=== PATIENT | male | born 1975 | race Caucasian/White ===

== ENCOUNTER 2023-05-08 21:38 | Inpatient (IN) | payer MEDICARE, MEDICAID ==
[~2023-05-08] VITALS: Ht 185.4 cm; Wt 73.5 kg
[2023-05-09 00:20] VITALS: BP 105/75; PULSE 94; RESP 18; TEMP 97.4
[2023-05-09] MEDS ORDERED: ACETAMINOPHEN 325 MG TABLET PO PRN (00:30)
[2023-05-09] MEDS ORDERED: MAGNESIUM HYDROXIDE SUSPENSION 30 ML UDCUP PO PRN (00:30)
[2023-05-09] MEDS ORDERED: DEXTROSE 50%-WATER 25 GM/50 ML SYRINGE IVP PRN (06:45)
[2023-05-09] MEDS: INSULIN LISPRO 100 UNITS/ML SQ PRN ×3 (07:02→20:47)
[2023-05-09 07:17] LABS: GLUCOMETER DEV NAME(LOC) 3EX.2; GLUCOSE,POINT OF CARE 167 MG/DL (70-110)
[2023-05-09 08:30] VITALS: RESP 18; TEMP 97.9
[2023-05-09] MEDS ORDERED: NICOTINE 21 MG/24 HOUR PATCH TD SCH (09:00)
[2023-05-09] MEDS: PERPHENAZINE 8 MG TABLET PO SCH ×2 (11:16→16:57)
[2023-05-09 11:37] LABS: GLUCOMETER DEV NAME(LOC) 3EX.2; GLUCOSE,POINT OF CARE 115 MG/DL (70-110)
[2023-05-09] MEDS: NICOTINE POLACRILEX 4 MG LOZENGE PO PRN ×2 (15:48→19:52)
[2023-05-09 16:27] LABS: GLUCOMETER DEV NAME(LOC) 3EX.2; GLUCOSE,POINT OF CARE 205 MG/DL (70-110)
[2023-05-09 19:01] LABS: APPEARANCE,URINE CLEAR (CLEAR); BILIRUBIN,URINE NEGATIVE (NEGATIVE); COLOR,URINE LIGHT YELLOW (YELLOW); GLUCOSE, URINE (UA) NEGATIVE (NEGATIVE); KETONES,URINE NEGATIVE (NEGATIVE); LEUKOCYTE ESTERASE ,URINE NEGATIVE (NEGATIVE); NITRATE,URINE NEGATIVE (NEGATIVE); OCCULT BLOOD,URINE NEGATIVE (NEGATIVE); PH,URINE 6.5 (5.0-8.0); PH,URINE DRUG SCREEN 6.5 (5.0-8.0); PROTEIN,URINE NEGATIVE (NEGATIVE); SPECIFIC GRAVITIY, URINE 1.015 (1.003-1.030); UROBILINOGEN,URINE <=1.0 mg/dL (<=1.0)
[2023-05-09 19:08] LABS: ALCOHOL, URINE DRUG SCREEN NEGATIVE (NEGATIVE); AMPHET/METH SCREEN,URINE NEGATIVE (NEGATIVE); BARBITURATE SCREEN, URINE NEGATIVE (NEGATIVE); BENZODIAZEPINES SCREEN,URINE NEGATIVE (NEGATIVE); CANNABINOID SCREEN,URINE NEGATIVE (NEGATIVE); COCAINE SCREEN,URINE NEGATIVE (NEGATIVE); METHADONE SCREEN, URINE NEGATIVE (NEGATIVE); OPIATE SCREEN,URINE NEGATIVE (NEGATIVE); PHENCYCLIDINE SCREEN,URINE NEGATIVE (NEGATIVE)
[2023-05-09 20:12] VITALS: RESP 18
[2023-05-09 20:28] LABS: GLUCOMETER DEV NAME(LOC) 3EX.2; GLUCOSE,POINT OF CARE 233 MG/DL (70-110)
[2023-05-09] MEDS: TraZODone HCL 100 MG TABLET PO SCH (20:34)
[2023-05-09] MEDS: OLANZapine 10 MG TABLET PO SCH (20:34)
[2023-05-09] MEDS: QUEtiapine FUMARATE 200 MG TABLET PO SCH (20:35)
[2023-05-09] MEDS: MELATONIN 5 MG TABLET PO SCH (20:38)
[2023-05-10] MEDS: NICOTINE POLACRILEX 4 MG LOZENGE PO PRN ×4 (09:14→21:29)
[2023-05-10] MEDS: OMEGA-3/DHA/EPA/FISH OIL 1,000 MG CAPSULE PO SCH (09:15)
[2023-05-10] MEDS: PERPHENAZINE 8 MG TABLET PO SCH ×2 (09:15→17:17)
[2023-05-10 09:25] VITALS: BP 95/64; PULSE 102; RESP 18; TEMP 97.2
[2023-05-10 12:08] LABS: GLUCOMETER DEV NAME(LOC) 3EX.2; GLUCOSE,POINT OF CARE 348 MG/DL (70-110)
[2023-05-10] MEDS: INSULIN LISPRO 100 UNITS/ML SQ PRN ×3 (12:17→21:15)
[2023-05-10] MEDS: LORazepam 2 MG TABLET PO PRN ×3 (13:20→21:31)
[2023-05-10 17:08] LABS: GLUCOMETER DEV NAME(LOC) 3EX.2; GLUCOSE,POINT OF CARE 166 MG/DL (70-110)
[2023-05-10] MEDS: HALOPERIDOL 5 MG TABLET PO PRN (17:25)
[2023-05-10 20:24] VITALS: BP 102/67; PULSE 93; RESP 18; TEMP 97.6
[2023-05-10 20:41] LABS: GLUCOMETER DEV NAME(LOC) 3EX.2; GLUCOSE,POINT OF CARE 261 MG/DL (70-110)
[2023-05-10] MEDS: OLANZapine 10 MG TABLET PO SCH (21:27)
[2023-05-10] MEDS: MELATONIN 5 MG TABLET PO SCH (21:27)
[2023-05-10] MEDS: QUEtiapine FUMARATE 200 MG TABLET PO SCH (21:27)
[2023-05-10] MEDS: TraZODone HCL 100 MG TABLET PO SCH (21:27)
[2023-05-11 06:07] LABS: GLUCOMETER DEV NAME(LOC) 3EX.2; GLUCOSE,POINT OF CARE 211 MG/DL (70-110)
[2023-05-11] MEDS: INSULIN LISPRO 100 UNITS/ML SQ PRN ×4 (06:35→21:11)
[2023-05-11 07:54] LABS: BASOPHILS % (AUTO) 0.7 % (0.0-2.0); EOSINOPHILS % (AUTO) 2.8 % (1.0-6.0); HEMATOCRIT 37.1 % (41-53); HEMOGLOBIN 12.2 g/dL (13.5-17.5); LYMPHOCYTES # (AUTO) 1.5 K/uL (1.0-4.8); MEAN CORPUSCULAR HEMOGLOBIN 28.7 pg (26.0-34.0); MEAN CORPUSCULAR HGB CONC 32.8 G/dL (31.0-37.0); MEAN CORPUSCULAR VOLUME 88 fL (80-100); MONOCYTES # (AUTO) 0.8 K/uL (0.1-1.0); MONOCYTES % (AUTO) 7.7 % (2.0-9.0); NEUTROPHILS # (AUTO) 7.6 K/uL (1.8-7.7); NEUTROPHILS % (AUTO) 73.8 % (40.0-70.0); PLATELET COUNT (AUTO) 317 K/uL (150-450); RED BLOOD CELL COUNT(AUTO) 4.24 MIL/uL (4.50-5.90); RED CELL DISTRIBUTION WIDTH 14.6 % (11.5-14.5); WHITE BLOOD COUNT (AUTO) 10.3 K/uL (4.5-11.0)
[2023-05-11 08:02] VITALS: RESP 18
[2023-05-11 08:02] LABS: HEMOGLOBIN A1C 9.2 % (3.8-5.6)
[2023-05-11 08:05] LABS: ALCOHOL, BLOOD (SERUM) < 3 mg/dL (0-10)
[2023-05-11 08:13] LABS: ALANINE AMINOTRANSFERASE 25 U/L (12-78); ALBUMIN 2.7 g/dL (3.4-5.0); ALKALINE PHOSPHATASE 84 U/L (46-116); ANION GAP 10 mmol/L (8-16); ASPARTATE AMINOTRANSFERASE 15 U/L (15-37); BILIRUBIN,TOTAL 0.4 mg/dL (0.1-1.0); CALCIUM, TOTAL 8.4 mg/dL (8.8-10.5); CARBON DIOXIDE 27 mmol/L (22-29); CHLORIDE 103 mmol/L (98-107); CHOL/HDL RATIO 3.4 (4.2-7.3); CHOLESTEROL 136 mg/dL (131-200); CREATININE 0.71 mg/dL (0.60-1.30); FREE T4 (FREE THYROXINE) 0.91 ng/dL (0.76-1.46); GLOMERULAR FILTR. RATE CALC > 60 mL/min (>60); GLUCOSE,RANDOM 120 mg/dL (70-110); HDL CHOLESTEROL 40 mg/dL (40-60); LDL CHOL (CALC.) 83 mg/dL (0-130); POTASSIUM 3.8 mmol/L (3.5-5.1); SODIUM SERUM 140 mmol/L (136-145); THYROID STIMULATING HORMONE 2.41 uIU/mL (0.36-3.74); TOTAL PROTEIN, SERUM 6.5 g/dL (6.4-8.2); TRIGLYCERIDES 65 mg/dL (15-150); UREA NITROGEN, BLOOD 15 mg/dL (7-18)
[2023-05-11] MEDS: OMEGA-3/DHA/EPA/FISH OIL 1,000 MG CAPSULE PO SCH (08:14)
[2023-05-11] MEDS: LORazepam 2 MG TABLET PO PRN ×2 (08:15→16:49)
[2023-05-11] MEDS: NICOTINE POLACRILEX 4 MG LOZENGE PO PRN ×4 (08:15→21:02)
[2023-05-11] MEDS: PERPHENAZINE 8 MG TABLET PO SCH ×2 (08:15→16:49)
[2023-05-11 11:41] LABS: GLUCOMETER DEV NAME(LOC) 3EX.2; GLUCOSE,POINT OF CARE 247 MG/DL (70-110)
[2023-05-11 16:28] LABS: GLUCOMETER DEV NAME(LOC) 3EX.2; GLUCOSE,POINT OF CARE 239 MG/DL (70-110)
[2023-05-11] MEDS: MELATONIN 5 MG TABLET PO SCH (21:00)
[2023-05-11] MEDS: OLANZapine 10 MG TABLET PO SCH (21:00)
[2023-05-11] MEDS: QUEtiapine FUMARATE 200 MG TABLET PO SCH (21:01)
[2023-05-11] MEDS: TraZODone HCL 100 MG TABLET PO SCH (21:01)
[2023-05-11 21:41] LABS: GLUCOMETER DEV NAME(LOC) 3EX.2; GLUCOSE,POINT OF CARE 292 MG/DL (70-110)
[2023-05-11 22:10] VITALS: BP 126/71; PULSE 85; RESP 20; TEMP 97.2
[2023-05-12] MEDS: NICOTINE POLACRILEX 4 MG LOZENGE PO PRN ×4 (06:14→18:36)
[2023-05-12] MEDS: INSULIN LISPRO 100 UNITS/ML SQ PRN ×4 (06:43→21:29)
[2023-05-12 07:18] LABS: GLUCOMETER DEV NAME(LOC) 3EX.2; GLUCOSE,POINT OF CARE 286 MG/DL (70-110)
[2023-05-12] MEDS: OMEGA-3/DHA/EPA/FISH OIL 1,000 MG CAPSULE PO SCH (08:31)
[2023-05-12] MEDS: PERPHENAZINE 8 MG TABLET PO SCH ×2 (08:31→16:22)
[2023-05-12 09:21] VITALS: BP 107/63; PULSE 67; RESP 17; TEMP 97.7
[2023-05-12 11:11] LABS: GLUCOMETER DEV NAME(LOC) 3EX.2; GLUCOSE,POINT OF CARE 275 MG/DL (70-110)
[2023-05-12] MEDS: HALOPERIDOL 5 MG TABLET PO PRN (14:30)
[2023-05-12] MEDS: LORazepam 2 MG TABLET PO PRN ×2 (14:30→21:06)
[2023-05-12 17:42] LABS: GLUCOMETER DEV NAME(LOC) 3EX.2; GLUCOSE,POINT OF CARE 255 MG/DL (70-110)
[2023-05-12] MEDS: OLANZapine 10 MG TABLET PO SCH (21:05)
[2023-05-12] MEDS: QUEtiapine FUMARATE 200 MG TABLET PO SCH (21:06)
[2023-05-12] MEDS: MELATONIN 5 MG TABLET PO SCH (21:06)
[2023-05-12] MEDS: TraZODone HCL 100 MG TABLET PO SCH (21:06)
[2023-05-12 21:20] VITALS: RESP 18
[2023-05-12 22:01] LABS: GLUCOMETER DEV NAME(LOC) 3EX.2; GLUCOSE,POINT OF CARE 223 MG/DL (70-110)
[2023-05-12] MEDS: NICOTINE POLACRILEX 2 MG LOZENGE PO PRN (22:37)
[2023-05-12] MEDS ORDERED: QUEtiapine FUMARATE 100 MG TABLET PO PRN (22:45)
[2023-05-13] MEDS: NICOTINE POLACRILEX 2 MG LOZENGE PO PRN ×8 (06:12→23:41)
[2023-05-13] MEDS: INSULIN LISPRO 100 UNITS/ML SQ PRN ×4 (06:42→21:14)
[2023-05-13 07:12] LABS: GLUCOMETER DEV NAME(LOC) 3EX.2; GLUCOSE,POINT OF CARE 276 MG/DL (70-110)
[2023-05-13 07:51] LABS: BASOPHILS % (AUTO) 1.1 % (0.0-2.0); EOSINOPHILS % (AUTO) 4.5 % (1.0-6.0); HEMATOCRIT 36.9 % (41-53); HEMOGLOBIN 12.2 g/dL (13.5-17.5); LYMPHOCYTES # (AUTO) 1.9 K/uL (1.0-4.8); LYMPHOCYTES % (AUTO) 24.9 % (22.0-44.0); MEAN CORPUSCULAR HEMOGLOBIN 28.9 pg (26.0-34.0); MEAN CORPUSCULAR HGB CONC 33.1 G/dL (31.0-37.0); MEAN CORPUSCULAR VOLUME 87 fL (80-100); MONOCYTES # (AUTO) 0.6 K/uL (0.1-1.0); MONOCYTES % (AUTO) 8.1 % (2.0-9.0); NEUTROPHILS # (AUTO) 4.6 K/uL (1.8-7.7); NEUTROPHILS % (AUTO) 61.4 % (40.0-70.0); PLATELET COUNT (AUTO) 331 K/uL (150-450); RED BLOOD CELL COUNT(AUTO) 4.23 MIL/uL (4.50-5.90); RED CELL DISTRIBUTION WIDTH 14.6 % (11.5-14.5); WHITE BLOOD COUNT (AUTO) 7.5 K/uL (4.5-11.0)
[2023-05-13] MEDS: OMEGA-3/DHA/EPA/FISH OIL 1,000 MG CAPSULE PO SCH (08:27)
[2023-05-13] MEDS ORDERED: CloZAPine 25 MG TABLET PO SCH (09:00)
[2023-05-13 09:18] VITALS: BP 95/65; PULSE 87; RESP 18; TEMP 97.9
[2023-05-13 12:02] LABS: GLUCOMETER DEV NAME(LOC) 3EX.2; GLUCOSE,POINT OF CARE 327 MG/DL (70-110)
[2023-05-13 17:28] LABS: GLUCOMETER DEV NAME(LOC) 3EX.2; GLUCOSE,POINT OF CARE 327 MG/DL (70-110)
[2023-05-13] MEDS: MELATONIN 5 MG TABLET PO SCH (21:11)
[2023-05-13] MEDS: OLANZapine 10 MG TABLET PO SCH (21:11)
[2023-05-13] MEDS: QUEtiapine FUMARATE 200 MG TABLET PO SCH (21:11)
[2023-05-13 21:18] LABS: GLUCOMETER DEV NAME(LOC) 3EX.2; GLUCOSE,POINT OF CARE 243 MG/DL (70-110)
[2023-05-13 21:51] VITALS: BP 128/77; PULSE 84; RESP 18; TEMP 97.1
[2023-05-14 06:48] LABS: GLUCOMETER DEV NAME(LOC) 3EX.2; GLUCOSE,POINT OF CARE 330 MG/DL (70-110)
[2023-05-14] MEDS: INSULIN LISPRO 100 UNITS/ML SQ PRN ×4 (07:00→21:22)
[2023-05-14] MEDS: NICOTINE POLACRILEX 2 MG LOZENGE PO PRN ×8 (07:01→22:57)
[2023-05-14] MEDS: OMEGA-3/DHA/EPA/FISH OIL 1,000 MG CAPSULE PO SCH (08:13)
[2023-05-14] MEDS: LevETIRAcetam 500 MG TABLET PO SCH ×2 (08:13→16:07)
[2023-05-14] MEDS: TOPIRAMATE 100 MG TABLET PO SCH ×2 (08:14→16:06)
[2023-05-14] MEDS: VALPROIC ACID 250 MG CAPSULE PO SCH ×2 (08:33→16:05)
[2023-05-14] MEDS ORDERED: CloZAPine 25 MG TABLET PO SCH ×2 (09:00→21:00)
[2023-05-14 09:07] VITALS: BP 107/67; PULSE 81; RESP 18; TEMP 97.8
[2023-05-14 11:33] LABS: GLUCOMETER DEV NAME(LOC) 3EX.2; GLUCOSE,POINT OF CARE 353 MG/DL (70-110)
[2023-05-14 17:07] LABS: GLUCOMETER DEV NAME(LOC) 3EX.2; GLUCOSE,POINT OF CARE 257 MG/DL (70-110)
[2023-05-14 20:37] LABS: GLUCOMETER DEV NAME(LOC) 3EX.2; GLUCOSE,POINT OF CARE 213 MG/DL (70-110)
[2023-05-14] MEDS: QUEtiapine FUMARATE 200 MG TABLET PO SCH (20:52)
[2023-05-14] MEDS: MELATONIN 5 MG TABLET PO SCH (20:52)
[2023-05-14] MEDS: OLANZapine 10 MG TABLET PO SCH (20:52)
[2023-05-14 21:36] VITALS: BP 93/64; PULSE 93; RESP 18; TEMP 97.6
[2023-05-15] MEDS: VALPROIC ACID 250 MG CAPSULE PO SCH ×3 (00:01→16:38)
[2023-05-15] MEDS: INSULIN LISPRO 100 UNITS/ML SQ PRN ×4 (07:03→21:10)
[2023-05-15] MEDS: NICOTINE POLACRILEX 2 MG LOZENGE PO PRN ×6 (07:06→23:15)
[2023-05-15 07:12] LABS: GLUCOMETER DEV NAME(LOC) 3EX.2; GLUCOSE,POINT OF CARE 362 MG/DL (70-110)
[2023-05-15 08:29] VITALS: BP 96/62; PULSE 83; RESP 18; TEMP 97.5
[2023-05-15] MEDS: OMEGA-3/DHA/EPA/FISH OIL 1,000 MG CAPSULE PO SCH (08:47)
[2023-05-15] MEDS: LevETIRAcetam 500 MG TABLET PO SCH ×2 (08:47→16:38)
[2023-05-15] MEDS: TOPIRAMATE 100 MG TABLET PO SCH ×2 (08:48→16:38)
[2023-05-15] MEDS ORDERED: CloZAPine 25 MG TABLET PO SCH ×2 (09:00→21:00)
[2023-05-15 11:37] LABS: GLUCOMETER DEV NAME(LOC) 3EX.2; GLUCOSE,POINT OF CARE 235 MG/DL (70-110)
[2023-05-15 16:37] LABS: GLUCOMETER DEV NAME(LOC) 3EX.2; GLUCOSE,POINT OF CARE 344 MG/DL (70-110)
[2023-05-15 20:28] LABS: GLUCOMETER DEV NAME(LOC) 3EX.2; GLUCOSE,POINT OF CARE 280 MG/DL (70-110)
[2023-05-15] MEDS: QUEtiapine FUMARATE 200 MG TABLET PO SCH (20:38)
[2023-05-15] MEDS: MELATONIN 5 MG TABLET PO SCH (20:39)
[2023-05-15] MEDS ORDERED: OLANZapine 7.5 MG TABLET PO SCH (21:00)
[2023-05-15] MEDS ORDERED: OLANZapine 10 MG TABLET PO ONE (22:15)
[2023-05-15 22:21] VITALS: BP 101/70; PULSE 78; RESP 18; TEMP 98.1
[2023-05-16] MEDS: VALPROIC ACID 250 MG CAPSULE PO SCH ×4 (00:03→23:45)
[2023-05-16 06:37] LABS: GLUCOMETER DEV NAME(LOC) 3EX.2; GLUCOSE,POINT OF CARE 305 MG/DL (70-110)
[2023-05-16] MEDS: INSULIN LISPRO 100 UNITS/ML SQ PRN ×4 (06:46→21:04)
[2023-05-16] MEDS: NICOTINE POLACRILEX 2 MG LOZENGE PO PRN ×6 (07:12→21:36)
[2023-05-16] MEDS: TOPIRAMATE 100 MG TABLET PO SCH ×2 (08:22→16:24)
[2023-05-16] MEDS: CloZAPine 25 MG TABLET PO SCH ×2 (08:23→20:56)
[2023-05-16] MEDS: LevETIRAcetam 500 MG TABLET PO SCH ×2 (08:23→16:23)
[2023-05-16] MEDS: OMEGA-3/DHA/EPA/FISH OIL 1,000 MG CAPSULE PO SCH (08:23)
[2023-05-16 08:34] VITALS: BP 94/64; PULSE 81; RESP 18; TEMP 97.6
[2023-05-16 11:42] LABS: GLUCOMETER DEV NAME(LOC) 3EX.2; GLUCOSE,POINT OF CARE 245 MG/DL (70-110)
[2023-05-16 16:52] LABS: GLUCOMETER DEV NAME(LOC) 3EX.2; GLUCOSE,POINT OF CARE 337 MG/DL (70-110)
[2023-05-16 20:48] LABS: GLUCOMETER DEV NAME(LOC) 3EX.2; GLUCOSE,POINT OF CARE 338 MG/DL (70-110)
[2023-05-16] MEDS: MELATONIN 5 MG TABLET PO SCH (20:56)
[2023-05-16] MEDS: QUEtiapine FUMARATE 200 MG TABLET PO SCH (20:56)
[2023-05-16] MEDS: OLANZapine 7.5 MG TABLET PO SCH (20:59)
[2023-05-16 21:31] VITALS: BP 102/69; PULSE 89; RESP 19; TEMP 97.8
[2023-05-17] MEDS: NICOTINE POLACRILEX 2 MG LOZENGE PO PRN ×5 (07:10→21:16)
[2023-05-17 07:12] LABS: GLUCOMETER DEV NAME(LOC) 3EX.2; GLUCOSE,POINT OF CARE 304 MG/DL (70-110)
[2023-05-17] MEDS: INSULIN LISPRO 100 UNITS/ML SQ PRN ×4 (07:12→21:41)
[2023-05-17] MEDS: VALPROIC ACID 250 MG CAPSULE PO SCH ×2 (08:27→16:10)
[2023-05-17] MEDS: LevETIRAcetam 500 MG TABLET PO SCH ×2 (08:28→16:11)
[2023-05-17] MEDS: OMEGA-3/DHA/EPA/FISH OIL 1,000 MG CAPSULE PO SCH (08:28)
[2023-05-17] MEDS: TOPIRAMATE 100 MG TABLET PO SCH ×2 (08:29→16:11)
[2023-05-17 08:34] VITALS: BP 100/62; PULSE 78; RESP 18; TEMP 98.2
[2023-05-17] MEDS: CloZAPine 25 MG TABLET PO SCH ×2 (09:03→21:32)
[2023-05-17 11:23] LABS: GLUCOMETER DEV NAME(LOC) 3EX.2; GLUCOSE,POINT OF CARE 314 MG/DL (70-110)
[2023-05-17 16:32] LABS: GLUCOMETER DEV NAME(LOC) 3EX.2; GLUCOSE,POINT OF CARE 206 MG/DL (70-110)
[2023-05-17 20:17] LABS: GLUCOMETER DEV NAME(LOC) 3EX.2; GLUCOSE,POINT OF CARE 396 MG/DL (70-110)
[2023-05-17 20:20] VITALS: BP 108/60; PULSE 86; RESP 19; TEMP 98
[2023-05-17] MEDS: QUEtiapine FUMARATE 200 MG TABLET PO SCH (21:31)
[2023-05-17] MEDS: MELATONIN 5 MG TABLET PO SCH (21:32)
[2023-05-17] MEDS: OLANZapine 7.5 MG TABLET PO SCH (21:32)
[2023-05-18] MEDS: VALPROIC ACID 250 MG CAPSULE PO SCH ×3 (00:17→16:07)
[2023-05-18] MEDS: NICOTINE POLACRILEX 2 MG LOZENGE PO PRN ×8 (01:38→23:39)
[2023-05-18 06:32] LABS: GLUCOMETER DEV NAME(LOC) 3EX.2; GLUCOSE,POINT OF CARE 305 MG/DL (70-110)
[2023-05-18] MEDS: INSULIN LISPRO 100 UNITS/ML SQ PRN ×4 (06:37→21:18)
[2023-05-18 08:46] VITALS: BP 100/66; PULSE 68; RESP 18; TEMP 97.7
[2023-05-18] MEDS ORDERED: CloZAPine 25 MG TABLET PO SCH (09:00)
[2023-05-18] MEDS: OMEGA-3/DHA/EPA/FISH OIL 1,000 MG CAPSULE PO SCH (09:08)
[2023-05-18] MEDS: TOPIRAMATE 100 MG TABLET PO SCH ×2 (09:09→16:22)
[2023-05-18] MEDS: LevETIRAcetam 500 MG TABLET PO SCH ×2 (09:09→16:21)
[2023-05-18] MEDS: LOPERAMIDE HCL 2 MG CAPSULE PO PRN (11:36)
[2023-05-18 11:37] LABS: GLUCOMETER DEV NAME(LOC) 3EX.2; GLUCOSE,POINT OF CARE 270 MG/DL (70-110)
[2023-05-18 17:38] LABS: GLUCOMETER DEV NAME(LOC) 3EX.2; GLUCOSE,POINT OF CARE 372 MG/DL (70-110)
[2023-05-18 20:11] LABS: GLUCOMETER DEV NAME(LOC) 3EX.2; GLUCOSE,POINT OF CARE 260 MG/DL (70-110)
[2023-05-18] MEDS: MELATONIN 5 MG TABLET PO SCH (20:35)
[2023-05-18] MEDS: QUEtiapine FUMARATE 200 MG TABLET PO SCH (20:35)
[2023-05-18] MEDS: OLANZapine 7.5 MG TABLET PO SCH (20:35)
[2023-05-18] MEDS ORDERED: CloZAPine 100 MG TABLET PO SCH (21:00)
[2023-05-18 21:38] VITALS: BP 112/70; PULSE 74; RESP 19; TEMP 97.2
[2023-05-19] MEDS: VALPROIC ACID 250 MG CAPSULE PO SCH ×3 (00:38→16:09)
[2023-05-19 06:42] LABS: GLUCOMETER DEV NAME(LOC) 3EX.2; GLUCOSE,POINT OF CARE 306 MG/DL (70-110)
[2023-05-19] MEDS: INSULIN LISPRO 100 UNITS/ML SQ PRN ×4 (06:43→21:37)
[2023-05-19] MEDS: LevETIRAcetam 500 MG TABLET PO SCH ×2 (07:53→16:09)
[2023-05-19] MEDS: OMEGA-3/DHA/EPA/FISH OIL 1,000 MG CAPSULE PO SCH (07:54)
[2023-05-19] MEDS: TOPIRAMATE 100 MG TABLET PO SCH ×2 (07:54→16:08)
[2023-05-19] MEDS: NICOTINE POLACRILEX 2 MG LOZENGE PO PRN ×7 (07:59→21:25)
[2023-05-19 08:19] VITALS: BP 99/61; PULSE 66; RESP 17; TEMP 98
[2023-05-19] MEDS ORDERED: CloZAPine 25 MG TABLET PO SCH (09:00)
[2023-05-19 11:28] LABS: GLUCOMETER DEV NAME(LOC) 3EX.2; GLUCOSE,POINT OF CARE 298 MG/DL (70-110)
[2023-05-19 16:17] LABS: GLUCOMETER DEV NAME(LOC) 3EX.2; GLUCOSE,POINT OF CARE 256 MG/DL (70-110)
[2023-05-19 19:59] LABS: GLUCOMETER DEV NAME(LOC) 3EX.2; GLUCOSE,POINT OF CARE 239 MG/DL (70-110)
[2023-05-19 20:14] VITALS: BP 101/67; PULSE 78; RESP 19; TEMP 97.7
[2023-05-19] MEDS ORDERED: CloZAPine 100 MG TABLET PO SCH (21:00)
[2023-05-19] MEDS: MELATONIN 5 MG TABLET PO SCH (21:24)
[2023-05-19] MEDS: OLANZapine 7.5 MG TABLET PO SCH (21:25)
[2023-05-19] MEDS: QUEtiapine FUMARATE 200 MG TABLET PO SCH (21:25)
[2023-05-20] MEDS: VALPROIC ACID 250 MG CAPSULE PO SCH ×3 (00:36→16:40)
[2023-05-20] MEDS: NICOTINE POLACRILEX 2 MG LOZENGE PO PRN ×8 (00:39→21:00)
[2023-05-20 06:47] LABS: GLUCOMETER DEV NAME(LOC) 3EX.2; GLUCOSE,POINT OF CARE 328 MG/DL (70-110)
[2023-05-20] MEDS: INSULIN LISPRO 100 UNITS/ML SQ PRN ×4 (06:47→21:37)
[2023-05-20 07:13] LABS: BASOPHILS % (AUTO) 2.2 % (0.0-2.0); HEMATOCRIT 38.6 % (41-53); HEMOGLOBIN 12.9 g/dL (13.5-17.5); LYMPHOCYTES # (AUTO) 2.3 K/uL (1.0-4.8); LYMPHOCYTES % (AUTO) 36.1 % (22.0-44.0); MEAN CORPUSCULAR HEMOGLOBIN 29.6 pg (26.0-34.0); MEAN CORPUSCULAR HGB CONC 33.5 G/dL (31.0-37.0); MEAN CORPUSCULAR VOLUME 88 fL (80-100); MONOCYTES # (AUTO) 0.6 K/uL (0.1-1.0); MONOCYTES % (AUTO) 8.8 % (2.0-9.0); NEUTROPHILS % (AUTO) 47.9 % (40.0-70.0); PLATELET COUNT (AUTO) 356 K/uL (150-450); RED BLOOD CELL COUNT(AUTO) 4.37 MIL/uL (4.50-5.90); RED CELL DISTRIBUTION WIDTH 14.6 % (11.5-14.5); WHITE BLOOD COUNT (AUTO) 6.4 K/uL (4.5-11.0)
[2023-05-20] MEDS: TOPIRAMATE 100 MG TABLET PO SCH ×2 (08:27→16:41)
[2023-05-20] MEDS: OMEGA-3/DHA/EPA/FISH OIL 1,000 MG CAPSULE PO SCH (08:27)
[2023-05-20] MEDS: LevETIRAcetam 500 MG TABLET PO SCH ×2 (08:28→16:40)
[2023-05-20 08:30] VITALS: BP 102/65; PULSE 69; RESP 18; TEMP 97.6
[2023-05-20] MEDS ORDERED: CloZAPine 25 MG TABLET PO SCH (09:00)
[2023-05-20 11:36] LABS: GLUCOMETER DEV NAME(LOC) 3EX.2; GLUCOSE,POINT OF CARE 322 MG/DL (70-110)
[2023-05-20] MEDS ORDERED: DEXTROSE 50%-WATER 25 GM/50 ML SYRINGE IVP PRN (17:30)
[2023-05-20 17:42] LABS: GLUCOMETER DEV NAME(LOC) 3EX.2; GLUCOSE,POINT OF CARE 442 MG/DL (70-110)
[2023-05-20 19:47] LABS: GLUCOMETER DEV NAME(LOC) 3EX.2; GLUCOSE,POINT OF CARE 127 MG/DL (70-110)
[2023-05-20] MEDS: QUEtiapine FUMARATE 200 MG TABLET PO SCH (20:58)
[2023-05-20] MEDS: MELATONIN 5 MG TABLET PO SCH (20:59)
[2023-05-20] MEDS: OLANZapine 7.5 MG TABLET PO SCH (20:59)
[2023-05-20] MEDS ORDERED: CloZAPine 100 MG TABLET PO SCH (21:00)
[2023-05-20] MEDS: INSULIN GLARGINE,HUM.REC.ANLOG 100 UNITS/ML SQ SCH (21:35)
[2023-05-20 21:47] VITALS: BP 110/73; PULSE 85; RESP 19; TEMP 97.9
[2023-05-21] MEDS: VALPROIC ACID 250 MG CAPSULE PO SCH ×4 (00:30→23:34)
[2023-05-21 06:41] LABS: GLUCOMETER DEV NAME(LOC) 3EX.2; GLUCOSE,POINT OF CARE 250 MG/DL (70-110)
[2023-05-21] MEDS: INSULIN LISPRO 100 UNITS/ML SQ PRN ×4 (06:43→20:57)
[2023-05-21] MEDS: NICOTINE POLACRILEX 2 MG LOZENGE PO PRN ×7 (07:49→21:51)
[2023-05-21] MEDS: CloZAPine 100 MG TABLET PO SCH ×2 (07:52→20:36)
[2023-05-21] MEDS: TOPIRAMATE 100 MG TABLET PO SCH ×2 (07:52→16:39)
[2023-05-21] MEDS: OMEGA-3/DHA/EPA/FISH OIL 1,000 MG CAPSULE PO SCH (07:52)
[2023-05-21] MEDS: LevETIRAcetam 500 MG TABLET PO SCH ×2 (07:53→16:38)
[2023-05-21 09:00] VITALS: BP 91/62; PULSE 79; RESP 17; TEMP 97.2
[2023-05-21 10:52] VITALS: BP 96/60; PULSE 75; RESP 18; TEMP 97.2
[2023-05-21 12:03] LABS: GLUCOMETER DEV NAME(LOC) 3EX.2; GLUCOSE,POINT OF CARE 187 MG/DL (70-110)
[2023-05-21 17:23] LABS: GLUCOMETER DEV NAME(LOC) 3EX.2; GLUCOSE,POINT OF CARE 165 MG/DL (70-110)
[2023-05-21 20:27] LABS: GLUCOMETER DEV NAME(LOC) 3EX.2; GLUCOSE,POINT OF CARE 203 MG/DL (70-110)
[2023-05-21] MEDS: MELATONIN 5 MG TABLET PO SCH (20:36)
[2023-05-21] MEDS: OLANZapine 7.5 MG TABLET PO SCH (20:36)
[2023-05-21] MEDS: QUEtiapine FUMARATE 200 MG TABLET PO SCH (20:37)
[2023-05-21 20:53] VITALS: BP 90/60; PULSE 75; RESP 18; TEMP 96.9
[2023-05-21] MEDS: INSULIN GLARGINE,HUM.REC.ANLOG 100 UNITS/ML SQ SCH (20:56)
[2023-05-21] MEDS: ZOLPIDEM TARTRATE 10 MG TABLET PO PRN (21:48)
[2023-05-22] MEDS: INSULIN LISPRO 100 UNITS/ML SQ PRN ×3 (06:59→18:29)
[2023-05-22 07:02] LABS: GLUCOMETER DEV NAME(LOC) 3EX.2; GLUCOSE,POINT OF CARE 246 MG/DL (70-110)
[2023-05-22] MEDS: LevETIRAcetam 500 MG TABLET PO SCH ×2 (08:27→17:56)
[2023-05-22] MEDS: OMEGA-3/DHA/EPA/FISH OIL 1,000 MG CAPSULE PO SCH (08:27)
[2023-05-22] MEDS: CloZAPine 100 MG TABLET PO SCH ×2 (08:27→20:38)
[2023-05-22] MEDS: VALPROIC ACID 250 MG CAPSULE PO SCH ×3 (08:28→23:46)
[2023-05-22] MEDS: TOPIRAMATE 100 MG TABLET PO SCH ×2 (08:28→17:56)
[2023-05-22] MEDS: NICOTINE POLACRILEX 2 MG LOZENGE PO PRN ×7 (08:29→21:46)
[2023-05-22 11:52] LABS: GLUCOMETER DEV NAME(LOC) 3EX.2; GLUCOSE,POINT OF CARE 141 MG/DL (70-110)
[2023-05-22 17:13] LABS: GLUCOMETER DEV NAME(LOC) 3EX.2; GLUCOSE,POINT OF CARE 218 MG/DL (70-110)
[2023-05-22 20:09] VITALS: BP 101/71; PULSE 72; RESP 18; TEMP 98.1
[2023-05-22] MEDS: QUEtiapine FUMARATE 200 MG TABLET PO SCH (20:38)
[2023-05-22] MEDS: OLANZapine 7.5 MG TABLET PO SCH (20:38)
[2023-05-22] MEDS: MELATONIN 5 MG TABLET PO SCH (20:38)
[2023-05-22 20:42] LABS: GLUCOMETER DEV NAME(LOC) 3EX.2; GLUCOSE,POINT OF CARE 110 MG/DL (70-110)
[2023-05-22] MEDS: INSULIN GLARGINE,HUM.REC.ANLOG 100 UNITS/ML SQ SCH (20:59)
[2023-05-22] MEDS: ZOLPIDEM TARTRATE 10 MG TABLET PO PRN (21:09)
[2023-05-22 21:56] LABS: GLUCOMETER DEV NAME(LOC) 3EX.2; GLUCOSE,POINT OF CARE 137 MG/DL (70-110)
[2023-05-23] MEDS: NICOTINE POLACRILEX 2 MG LOZENGE PO PRN ×8 (06:19→22:34)
[2023-05-23 06:31] LABS: GLUCOMETER DEV NAME(LOC) 3EX.2; GLUCOSE,POINT OF CARE 396 MG/DL (70-110)
[2023-05-23] MEDS: INSULIN LISPRO 100 UNITS/ML SQ PRN ×4 (07:01→21:11)
[2023-05-23] MEDS: LevETIRAcetam 500 MG TABLET PO SCH ×2 (08:26→16:21)
[2023-05-23] MEDS: TOPIRAMATE 100 MG TABLET PO SCH ×2 (08:26→16:20)
[2023-05-23] MEDS: OMEGA-3/DHA/EPA/FISH OIL 1,000 MG CAPSULE PO SCH (08:26)
[2023-05-23] MEDS: VALPROIC ACID 250 MG CAPSULE PO SCH ×3 (08:29→23:22)
[2023-05-23] MEDS ORDERED: CloZAPine 25 MG TABLET PO SCH (09:00)
[2023-05-23 09:28] VITALS: BP 115/78; PULSE 78; RESP 18; TEMP 97.5
[2023-05-23 11:36] LABS: GLUCOMETER DEV NAME(LOC) 3EX.2; GLUCOSE,POINT OF CARE 121 MG/DL (70-110)
[2023-05-23 17:16] LABS: GLUCOMETER DEV NAME(LOC) 3EX.2; GLUCOSE,POINT OF CARE 288 MG/DL (70-110)
[2023-05-23 20:23] VITALS: RESP 20
[2023-05-23] MEDS: QUEtiapine FUMARATE 200 MG TABLET PO SCH (20:42)
[2023-05-23] MEDS: MELATONIN 5 MG TABLET PO SCH (20:43)
[2023-05-23] MEDS: OLANZapine 7.5 MG TABLET PO SCH (20:43)
[2023-05-23 20:50] LABS: GLUCOMETER DEV NAME(LOC) 3EX.2; GLUCOSE,POINT OF CARE 244 MG/DL (70-110)
[2023-05-23] MEDS ORDERED: CloZAPine 100 MG TABLET PO SCH (21:00)
[2023-05-23] MEDS: INSULIN GLARGINE,HUM.REC.ANLOG 100 UNITS/ML SQ SCH (21:10)
[2023-05-23] MEDS: ZOLPIDEM TARTRATE 10 MG TABLET PO PRN (22:34)
[2023-05-24] MEDS: NICOTINE POLACRILEX 2 MG LOZENGE PO PRN ×7 (06:25→22:58)
[2023-05-24 06:46] LABS: GLUCOMETER DEV NAME(LOC) 3EX.2; GLUCOSE,POINT OF CARE 162 MG/DL (70-110)
[2023-05-24] MEDS: INSULIN LISPRO 100 UNITS/ML SQ PRN ×3 (06:52→21:12)
[2023-05-24 08:02] VITALS: BP 107/74; PULSE 86; RESP 18; TEMP 97.1
[2023-05-24] MEDS: OMEGA-3/DHA/EPA/FISH OIL 1,000 MG CAPSULE PO SCH (08:03)
[2023-05-24] MEDS: VALPROIC ACID 250 MG CAPSULE PO SCH ×2 (08:03→16:28)
[2023-05-24] MEDS: TOPIRAMATE 100 MG TABLET PO SCH ×2 (08:04→16:29)
[2023-05-24] MEDS: LevETIRAcetam 500 MG TABLET PO SCH ×2 (08:04→16:29)
[2023-05-24] MEDS ORDERED: CloZAPine 25 MG TABLET PO SCH (09:00)
[2023-05-24 11:31] LABS: GLUCOMETER DEV NAME(LOC) 3EX.2; GLUCOSE,POINT OF CARE 232 MG/DL (70-110)
[2023-05-24 16:57] LABS: GLUCOMETER DEV NAME(LOC) 3EX.2; GLUCOSE,POINT OF CARE 102 MG/DL (70-110)
[2023-05-24 20:21] LABS: GLUCOMETER DEV NAME(LOC) 3EX.2; GLUCOSE,POINT OF CARE 443 MG/DL (70-110)
[2023-05-24] MEDS: QUEtiapine FUMARATE 200 MG TABLET PO SCH (20:31)
[2023-05-24] MEDS: OLANZapine 7.5 MG TABLET PO SCH (20:32)
[2023-05-24] MEDS: MELATONIN 5 MG TABLET PO SCH (20:33)
[2023-05-24] MEDS ORDERED: CloZAPine 100 MG TABLET PO SCH (21:00)
[2023-05-24] MEDS: INSULIN GLARGINE,HUM.REC.ANLOG 100 UNITS/ML SQ SCH (21:11)
[2023-05-24 21:13] VITALS: BP 120/76; PULSE 82; RESP 20; TEMP 98
[2023-05-24] MEDS: ZOLPIDEM TARTRATE 10 MG TABLET PO PRN (22:58)
[2023-05-25] MEDS: VALPROIC ACID 250 MG CAPSULE PO SCH ×4 (00:23→23:02)
[2023-05-25 06:11] LABS: GLUCOMETER DEV NAME(LOC) 3EX.2; GLUCOSE,POINT OF CARE 121 MG/DL (70-110)
[2023-05-25] MEDS: NICOTINE POLACRILEX 2 MG LOZENGE PO PRN ×7 (06:23→21:32)
[2023-05-25] MEDS: INSULIN LISPRO 100 UNITS/ML SQ PRN ×3 (06:34→18:02)
[2023-05-25] MEDS: OMEGA-3/DHA/EPA/FISH OIL 1,000 MG CAPSULE PO SCH (08:03)
[2023-05-25] MEDS: TOPIRAMATE 100 MG TABLET PO SCH ×2 (08:03→16:34)
[2023-05-25] MEDS: CloZAPine 100 MG TABLET PO SCH ×2 (08:03→20:27)
[2023-05-25] MEDS: LevETIRAcetam 500 MG TABLET PO SCH ×2 (08:03→16:34)
[2023-05-25 08:30] VITALS: BP 97/62; PULSE 86; RESP 18; TEMP 97.8
[2023-05-25 12:31] LABS: GLUCOMETER DEV NAME(LOC) 3EX.2; GLUCOSE,POINT OF CARE 205 MG/DL (70-110)
[2023-05-25 17:02] LABS: GLUCOMETER DEV NAME(LOC) 3EX.2; GLUCOSE,POINT OF CARE 342 MG/DL (70-110)
[2023-05-25 20:25] LABS: GLUCOMETER DEV NAME(LOC) 3EX.2; GLUCOSE,POINT OF CARE 69 MG/DL (70-110)
[2023-05-25] MEDS: QUEtiapine FUMARATE 200 MG TABLET PO SCH (20:27)
[2023-05-25] MEDS: MELATONIN 5 MG TABLET PO SCH (20:27)
[2023-05-25] MEDS: OLANZapine 7.5 MG TABLET PO SCH (20:29)
[2023-05-25] MEDS: INSULIN GLARGINE,HUM.REC.ANLOG 100 UNITS/ML SQ SCH (21:00)
[2023-05-25 21:16] LABS: GLUCOMETER DEV NAME(LOC) 3EX.2; GLUCOSE,POINT OF CARE 73 MG/DL (70-110)
[2023-05-25] MEDS: ZOLPIDEM TARTRATE 10 MG TABLET PO PRN (21:44)
[2023-05-25 22:16] VITALS: BP 115/71; PULSE 80; RESP 18; TEMP 97.5
[2023-05-26] MEDS: NICOTINE POLACRILEX 2 MG LOZENGE PO PRN ×7 (05:32→20:27)
[2023-05-26 05:56] LABS: GLUCOMETER DEV NAME(LOC) 3EX.2; GLUCOSE,POINT OF CARE 284 MG/DL (70-110)
[2023-05-26] MEDS: INSULIN LISPRO 100 UNITS/ML SQ PRN ×4 (06:37→22:00)
[2023-05-26] MEDS: CloZAPine 100 MG TABLET PO SCH ×2 (08:13→20:25)
[2023-05-26] MEDS: OMEGA-3/DHA/EPA/FISH OIL 1,000 MG CAPSULE PO SCH (08:13)
[2023-05-26] MEDS: VALPROIC ACID 250 MG CAPSULE PO SCH ×2 (08:13→16:34)
[2023-05-26] MEDS: LevETIRAcetam 500 MG TABLET PO SCH ×2 (08:14→17:30)
[2023-05-26] MEDS: TOPIRAMATE 100 MG TABLET PO SCH ×2 (08:14→17:30)
[2023-05-26 08:49] VITALS: BP 105/64; PULSE 98; RESP 18; TEMP 97.6
[2023-05-26 11:56] LABS: GLUCOMETER DEV NAME(LOC) 3EX.2; GLUCOSE,POINT OF CARE 210 MG/DL (70-110)
[2023-05-26 16:35] LABS: GLUCOMETER DEV NAME(LOC) 3EX.2; GLUCOSE,POINT OF CARE 194 MG/DL (70-110)
[2023-05-26 20:16] LABS: GLUCOMETER DEV NAME(LOC) 3EX.2; GLUCOSE,POINT OF CARE 267 MG/DL (70-110)
[2023-05-26] MEDS: QUEtiapine FUMARATE 200 MG TABLET PO SCH (20:25)
[2023-05-26] MEDS: SENNOSIDES 8.6 MG TABLET PO SCH (20:25)
[2023-05-26] MEDS: DIVALPROEX SODIUM 250 MG ER TABLET PO SCH (20:26)
[2023-05-26] MEDS: MELATONIN 5 MG TABLET PO SCH (20:26)
[2023-05-26] MEDS: OLANZapine 10 MG TABLET PO SCH (20:26)
[2023-05-26 20:54] VITALS: BP 115/73; PULSE 99; RESP 18; TEMP 97.1
[2023-05-26] MEDS: ZOLPIDEM TARTRATE 10 MG TABLET PO PRN (21:57)
[2023-05-26] MEDS: INSULIN GLARGINE,HUM.REC.ANLOG 100 UNITS/ML SQ SCH (21:59)
[2023-05-27] MEDS: NICOTINE POLACRILEX 2 MG LOZENGE PO PRN ×5 (05:14→14:32)
[2023-05-27 05:26] LABS: GLUCOMETER DEV NAME(LOC) 3EX.2; GLUCOSE,POINT OF CARE 73 MG/DL (70-110)
[2023-05-27 07:06] LABS: BASOPHILS % (AUTO) 0.2 % (0.0-2.0); HEMOGLOBIN 12.6 g/dL (13.5-17.5); LYMPHOCYTES # (AUTO) 1.4 K/uL (1.0-4.8); LYMPHOCYTES % (AUTO) 21.5 % (22.0-44.0); MEAN CORPUSCULAR HEMOGLOBIN 28.9 pg (26.0-34.0); MEAN CORPUSCULAR HGB CONC 33.2 G/dL (31.0-37.0); MEAN CORPUSCULAR VOLUME 87 fL (80-100); MONOCYTES # (AUTO) 0.7 K/uL (0.1-1.0); MONOCYTES % (AUTO) 11.2 % (2.0-9.0); NEUTROPHILS # (AUTO) 3.8 K/uL (1.8-7.7); NEUTROPHILS % (AUTO) 59.1 % (40.0-70.0); PLATELET COUNT (AUTO) 293 K/uL (150-450); RED BLOOD CELL COUNT(AUTO) 4.37 MIL/uL (4.50-5.90); RED CELL DISTRIBUTION WIDTH 14.9 % (11.5-14.5); WHITE BLOOD COUNT (AUTO) 6.4 K/uL (4.5-11.0)
[2023-05-27 08:32] VITALS: BP 99/70; PULSE 75; RESP 18; TEMP 97.6
[2023-05-27] MEDS: TOPIRAMATE 100 MG TABLET PO SCH ×2 (08:39→16:24)
[2023-05-27] MEDS: LevETIRAcetam 500 MG TABLET PO SCH ×2 (08:39→16:24)
[2023-05-27] MEDS: OMEGA-3/DHA/EPA/FISH OIL 1,000 MG CAPSULE PO SCH (08:39)
[2023-05-27] MEDS: DIVALPROEX SODIUM 250 MG ER TABLET PO SCH ×4 (08:39→21:16)
[2023-05-27] MEDS: CloZAPine 100 MG TABLET PO SCH ×2 (08:40→21:16)
[2023-05-27 11:46] LABS: GLUCOMETER DEV NAME(LOC) 3EX.2; GLUCOSE,POINT OF CARE 258 MG/DL (70-110)
[2023-05-27] MEDS: INSULIN LISPRO 100 UNITS/ML SQ PRN ×3 (12:10→21:20)
[2023-05-27 17:16] LABS: GLUCOMETER DEV NAME(LOC) 3EX.2; GLUCOSE,POINT OF CARE 168 MG/DL (70-110)
[2023-05-27] MEDS: NICOTINE POLACRILEX 4 MG LOZENGE PO PRN ×3 (17:36→22:05)
[2023-05-27] MEDS ORDERED: QUEtiapine FUMARATE 300 MG TABLET PO SCH (21:00)
[2023-05-27 21:01] LABS: GLUCOMETER DEV NAME(LOC) 3EX.2; GLUCOSE,POINT OF CARE 183 MG/DL (70-110)
[2023-05-27] MEDS: OLANZapine 10 MG TABLET PO SCH (21:17)
[2023-05-27] MEDS: SENNOSIDES 8.6 MG TABLET PO SCH (21:17)
[2023-05-27] MEDS: MELATONIN 5 MG TABLET PO SCH (21:17)
[2023-05-27] MEDS: INSULIN GLARGINE,HUM.REC.ANLOG 100 UNITS/ML SQ SCH (21:19)
[2023-05-27 22:21] VITALS: BP 105/76; PULSE 97; RESP 18; TEMP 96.9
[2023-05-28] MEDS: NICOTINE POLACRILEX 4 MG LOZENGE PO PRN ×11 (06:02→21:55)
[2023-05-28 06:21] LABS: GLUCOMETER DEV NAME(LOC) 3EX.2; GLUCOSE,POINT OF CARE 169 MG/DL (70-110)
[2023-05-28] MEDS: INSULIN LISPRO 100 UNITS/ML SQ PRN ×4 (07:04→21:09)
[2023-05-28] MEDS: LevETIRAcetam 500 MG TABLET PO SCH ×2 (08:06→16:21)
[2023-05-28] MEDS: TOPIRAMATE 100 MG TABLET PO SCH ×2 (08:06→16:21)
[2023-05-28] MEDS: OMEGA-3/DHA/EPA/FISH OIL 1,000 MG CAPSULE PO SCH (08:07)
[2023-05-28] MEDS: CloZAPine 100 MG TABLET PO SCH ×2 (08:07→21:04)
[2023-05-28] MEDS: DIVALPROEX SODIUM 250 MG ER TABLET PO SCH ×4 (08:07→21:05)
[2023-05-28 08:28] VITALS: BP 94/63; PULSE 103; RESP 18; TEMP 97.1
[2023-05-28 11:30] LABS: GLUCOMETER DEV NAME(LOC) 3EX.2; GLUCOSE,POINT OF CARE 189 MG/DL (70-110)
[2023-05-28 16:40] LABS: GLUCOMETER DEV NAME(LOC) 3EX.2; GLUCOSE,POINT OF CARE 249 MG/DL (70-110)
[2023-05-28 20:30] LABS: GLUCOMETER DEV NAME(LOC) 3EX.2; GLUCOSE,POINT OF CARE 248 MG/DL (70-110)
[2023-05-28 20:40] VITALS: BP 126/75; PULSE 92; RESP 18; TEMP 97.5
[2023-05-28] MEDS: OLANZapine 10 MG TABLET PO SCH (21:04)
[2023-05-28] MEDS: ZOLPIDEM TARTRATE 10 MG TABLET PO PRN (21:05)
[2023-05-28] MEDS: SENNOSIDES 8.6 MG TABLET PO SCH (21:05)
[2023-05-28] MEDS: QUEtiapine FUMARATE 200 MG TABLET PO SCH (21:06)
[2023-05-28] MEDS: INSULIN GLARGINE,HUM.REC.ANLOG 100 UNITS/ML SQ SCH (21:07)
[2023-05-28] MEDS: MELATONIN 5 MG TABLET PO SCH (21:07)
[2023-05-29] MEDS: NICOTINE POLACRILEX 4 MG LOZENGE PO PRN ×13 (05:49→22:31)
[2023-05-29 05:56] LABS: GLUCOMETER DEV NAME(LOC) 3EX.2; GLUCOSE,POINT OF CARE 157 MG/DL (70-110)
[2023-05-29] MEDS: INSULIN LISPRO 100 UNITS/ML SQ PRN ×4 (06:35→21:07)
[2023-05-29 07:56] LABS: GLUCOMETER DEV NAME(LOC) 3EX.2; GLUCOSE,POINT OF CARE 49 MG/DL (70-110)
[2023-05-29 08:06] LABS: GLUCOMETER DEV NAME(LOC) 3EX.2; GLUCOSE,POINT OF CARE 52 MG/DL (70-110)
[2023-05-29] MEDS: OMEGA-3/DHA/EPA/FISH OIL 1,000 MG CAPSULE PO SCH (08:21)
[2023-05-29] MEDS: LevETIRAcetam 500 MG TABLET PO SCH ×2 (08:21→17:05)
[2023-05-29] MEDS: TOPIRAMATE 100 MG TABLET PO SCH ×2 (08:21→17:04)
[2023-05-29] MEDS: CloZAPine 100 MG TABLET PO SCH ×2 (08:21→21:06)
[2023-05-29] MEDS: DIVALPROEX SODIUM 250 MG ER TABLET PO SCH ×3 (09:10→17:05)
[2023-05-29 09:11] LABS: GLUCOMETER DEV NAME(LOC) 3EX.2; GLUCOSE,POINT OF CARE 53 MG/DL (70-110)
[2023-05-29 09:16] LABS: GLUCOMETER DEV NAME(LOC) 3EX.2; GLUCOSE,POINT OF CARE 159 MG/DL (70-110)
[2023-05-29 09:30] VITALS: BP 109/59; PULSE 102; RESP 18; TEMP 96.7
[2023-05-29 11:21] LABS: GLUCOMETER DEV NAME(LOC) 3EX.2; GLUCOSE,POINT OF CARE 375 MG/DL (70-110)
[2023-05-29 17:11] LABS: GLUCOMETER DEV NAME(LOC) 3EX.2; GLUCOSE,POINT OF CARE 156 MG/DL (70-110)
[2023-05-29 20:36] LABS: GLUCOMETER DEV NAME(LOC) 3EX.2; GLUCOSE,POINT OF CARE 186 MG/DL (70-110)
[2023-05-29] MEDS: OLANZapine 10 MG TABLET PO SCH (21:04)
[2023-05-29] MEDS: DIVALPROEX SODIUM 500 MG ER TABLET PO SCH (21:04)
[2023-05-29] MEDS: SENNOSIDES 8.6 MG TABLET PO SCH (21:05)
[2023-05-29] MEDS: MELATONIN 5 MG TABLET PO SCH (21:05)
[2023-05-29] MEDS: QUEtiapine FUMARATE 200 MG TABLET PO SCH (21:06)
[2023-05-29] MEDS: ZOLPIDEM TARTRATE 10 MG TABLET PO PRN (22:00)
[2023-05-29 22:07] VITALS: BP 112/66; PULSE 94; RESP 18; TEMP 97
[2023-05-30] MEDS: NICOTINE POLACRILEX 4 MG LOZENGE PO PRN ×6 (05:38→15:05)
[2023-05-30 06:02] LABS: GLUCOMETER DEV NAME(LOC) 3EX.2; GLUCOSE,POINT OF CARE 303 MG/DL (70-110)
[2023-05-30] MEDS: INSULIN LISPRO 100 UNITS/ML SQ PRN ×3 (07:00→21:11)
[2023-05-30] MEDS: OMEGA-3/DHA/EPA/FISH OIL 1,000 MG CAPSULE PO SCH (08:06)
[2023-05-30] MEDS: LevETIRAcetam 500 MG TABLET PO SCH ×2 (08:06→15:58)
[2023-05-30] MEDS: TOPIRAMATE 100 MG TABLET PO SCH ×2 (08:06→15:58)
[2023-05-30] MEDS: DIVALPROEX SODIUM 250 MG ER TABLET PO SCH ×3 (08:06→15:58)
[2023-05-30] MEDS: CloZAPine 100 MG TABLET PO SCH ×2 (08:06→20:23)
[2023-05-30] MEDS: LOPERAMIDE HCL 2 MG CAPSULE PO PRN (08:31)
[2023-05-30 08:55] VITALS: BP 100/72; PULSE 105; RESP 18; TEMP 97.2
[2023-05-30 11:07] LABS: CLOZAPINE & NORCLOZAPINE 167 ng/mL; NORCLOZAPINE 49 ng/mL (Not Estab.)
[2023-05-30 11:26] LABS: GLUCOMETER DEV NAME(LOC) 3EX.2; GLUCOSE,POINT OF CARE 132 MG/DL (70-110)
[2023-05-30 16:15] LABS: GLUCOMETER DEV NAME(LOC) 3EX.2; GLUCOSE,POINT OF CARE 353 MG/DL (70-110)
[2023-05-30] MEDS: NICOTINE POLACRILEX 2 MG LOZENGE PO PRN ×2 (17:37→19:45)
[2023-05-30 20:22] LABS: GLUCOMETER DEV NAME(LOC) 3EX.2; GLUCOSE,POINT OF CARE 275 MG/DL (70-110)
[2023-05-30] MEDS: OLANZapine 10 MG TABLET PO SCH (20:23)
[2023-05-30] MEDS: MELATONIN 5 MG TABLET PO SCH (20:23)
[2023-05-30] MEDS: QUEtiapine FUMARATE 200 MG TABLET PO SCH (20:24)
[2023-05-30] MEDS: DIVALPROEX SODIUM 500 MG ER TABLET PO SCH (20:24)
[2023-05-30] MEDS: SENNOSIDES 8.6 MG TABLET PO SCH (20:26)
[2023-05-30 20:47] VITALS: BP 108/70; PULSE 92; RESP 18; TEMP 97.4
[2023-05-30] MEDS: ZOLPIDEM TARTRATE 10 MG TABLET PO PRN (21:08)
[2023-05-31 05:26] LABS: GLUCOMETER DEV NAME(LOC) 3EX.2; GLUCOSE,POINT OF CARE 322 MG/DL (70-110)
[2023-05-31] MEDS: INSULIN LISPRO 100 UNITS/ML SQ PRN ×3 (06:36→21:02)
[2023-05-31] MEDS: NICOTINE POLACRILEX 2 MG LOZENGE PO PRN ×7 (07:48→22:30)
[2023-05-31] MEDS: MetFORMIN HCL 500 MG TABLET PO SCH ×2 (07:49→17:56)
[2023-05-31] MEDS: OMEGA-3/DHA/EPA/FISH OIL 1,000 MG CAPSULE PO SCH (09:07)
[2023-05-31] MEDS: LevETIRAcetam 500 MG TABLET PO SCH ×2 (09:07→16:08)
[2023-05-31] MEDS: CloZAPine 100 MG TABLET PO SCH ×2 (09:07→20:57)
[2023-05-31] MEDS: DIVALPROEX SODIUM 250 MG ER TABLET PO SCH ×3 (09:07→16:08)
[2023-05-31] MEDS: TOPIRAMATE 100 MG TABLET PO SCH ×2 (09:08→16:08)
[2023-05-31 09:53] VITALS: BP 100/65; PULSE 89; RESP 18; TEMP 97.1
[2023-05-31] MEDS: LOPERAMIDE HCL 2 MG CAPSULE PO PRN ×2 (11:09→17:16)
[2023-05-31 11:17] LABS: GLUCOMETER DEV NAME(LOC) 3EX.2; GLUCOSE,POINT OF CARE 344 MG/DL (70-110)
[2023-05-31 16:24] LABS: GLUCOMETER DEV NAME(LOC) 3EX.2; GLUCOSE,POINT OF CARE 135 MG/DL (70-110)
[2023-05-31 20:30] VITALS: BP 105/66; PULSE 82; RESP 18; TEMP 97.5
[2023-05-31 20:37] LABS: GLUCOMETER DEV NAME(LOC) 3EX.2; GLUCOSE,POINT OF CARE 384 MG/DL (70-110)
[2023-05-31] MEDS: DIVALPROEX SODIUM 500 MG ER TABLET PO SCH (20:53)
[2023-05-31] MEDS: QUEtiapine FUMARATE 200 MG TABLET PO SCH (20:57)
[2023-05-31] MEDS: OLANZapine 10 MG TABLET PO SCH (20:57)
[2023-05-31] MEDS: SENNOSIDES 8.6 MG TABLET PO SCH (20:58)
[2023-05-31] MEDS: MELATONIN 5 MG TABLET PO SCH (20:58)
[2023-05-31] MEDS: ZOLPIDEM TARTRATE 10 MG TABLET PO PRN (21:20)
[2023-06-01] MEDS: NICOTINE POLACRILEX 2 MG LOZENGE PO PRN ×8 (05:15→22:07)
[2023-06-01 05:32] LABS: GLUCOMETER DEV NAME(LOC) 3EX.2; GLUCOSE,POINT OF CARE 295 MG/DL (70-110)
[2023-06-01] MEDS: MetFORMIN HCL 500 MG TABLET PO SCH ×2 (06:39→17:51)
[2023-06-01] MEDS: INSULIN LISPRO 100 UNITS/ML SQ PRN ×3 (06:53→21:05)
[2023-06-01 08:24] VITALS: BP 95/62; PULSE 100; RESP 16; TEMP 97.8
[2023-06-01] MEDS: DIVALPROEX SODIUM 250 MG ER TABLET PO SCH ×3 (08:24→16:29)
[2023-06-01] MEDS: CloZAPine 100 MG TABLET PO SCH ×2 (08:25→20:26)
[2023-06-01] MEDS: LevETIRAcetam 500 MG TABLET PO SCH ×2 (08:25→16:29)
[2023-06-01] MEDS: TOPIRAMATE 100 MG TABLET PO SCH ×2 (08:25→16:29)
[2023-06-01] MEDS: OMEGA-3/DHA/EPA/FISH OIL 1,000 MG CAPSULE PO SCH (08:25)
[2023-06-01 11:23] LABS: GLUCOMETER DEV NAME(LOC) 3EX.2; GLUCOSE,POINT OF CARE 135 MG/DL (70-110)
[2023-06-01 16:14] LABS: GLUCOMETER DEV NAME(LOC) 3EX.2; GLUCOSE,POINT OF CARE 336 MG/DL (70-110)
[2023-06-01] MEDS: OLANZapine 10 MG TABLET PO SCH (20:24)
[2023-06-01] MEDS: DIVALPROEX SODIUM 500 MG ER TABLET PO SCH (20:25)
[2023-06-01] MEDS: MELATONIN 5 MG TABLET PO SCH (20:25)
[2023-06-01] MEDS: QUEtiapine FUMARATE 200 MG TABLET PO SCH (20:26)
[2023-06-01] MEDS: SENNOSIDES 8.6 MG TABLET PO SCH (20:27)
[2023-06-01 21:32] LABS: GLUCOMETER DEV NAME(LOC) 3EX.2; GLUCOSE,POINT OF CARE 166 MG/DL (70-110)
[2023-06-01 22:56] VITALS: BP 122/78; PULSE 80; RESP 18; TEMP 98
[2023-06-02] MEDS: MetFORMIN HCL 500 MG TABLET PO SCH ×2 (06:21→16:42)
[2023-06-02] MEDS: NICOTINE POLACRILEX 2 MG LOZENGE PO PRN ×5 (06:22→14:39)
[2023-06-02] MEDS: INSULIN LISPRO 100 UNITS/ML SQ PRN ×4 (06:44→21:10)
[2023-06-02 07:31] LABS: GLUCOMETER DEV NAME(LOC) 3EX.2; GLUCOSE,POINT OF CARE 330 MG/DL (70-110)
[2023-06-02 08:08] VITALS: RESP 17; TEMP 97.8
[2023-06-02] MEDS: LevETIRAcetam 500 MG TABLET PO SCH ×2 (08:19→16:40)
[2023-06-02] MEDS: TOPIRAMATE 100 MG TABLET PO SCH ×2 (08:19→16:40)
[2023-06-02] MEDS: OMEGA-3/DHA/EPA/FISH OIL 1,000 MG CAPSULE PO SCH (08:19)
[2023-06-02] MEDS: CloZAPine 100 MG TABLET PO SCH ×2 (08:19→20:42)
[2023-06-02] MEDS: DIVALPROEX SODIUM 250 MG ER TABLET PO SCH ×3 (08:19→16:40)
[2023-06-02 11:15] LABS: GLUCOMETER DEV NAME(LOC) 3EX.2; GLUCOSE,POINT OF CARE 128 MG/DL (70-110)
[2023-06-02 17:19] LABS: GLUCOMETER DEV NAME(LOC) 3EX.2; GLUCOSE,POINT OF CARE 273 MG/DL (70-110)
[2023-06-02] MEDS: NICOTINE POLACRILEX 4 MG LOZENGE PO PRN ×3 (17:59→23:00)
[2023-06-02 20:38] VITALS: BP 131/84; PULSE 84; RESP 18; TEMP 97.6
[2023-06-02] MEDS: DIVALPROEX SODIUM 500 MG ER TABLET PO SCH (20:42)
[2023-06-02] MEDS: SENNOSIDES 8.6 MG TABLET PO SCH (20:43)
[2023-06-02] MEDS: QUEtiapine FUMARATE 200 MG TABLET PO SCH (20:43)
[2023-06-02] MEDS: MELATONIN 5 MG TABLET PO SCH (20:43)
[2023-06-02] MEDS: OLANZapine 10 MG TABLET PO SCH (20:43)
[2023-06-02 21:33] LABS: GLUCOMETER DEV NAME(LOC) 3EX.2; GLUCOSE,POINT OF CARE 132 MG/DL (70-110)
[2023-06-02] MEDS: ZOLPIDEM TARTRATE 10 MG TABLET PO PRN (23:00)
[2023-06-03] MEDS: NICOTINE POLACRILEX 4 MG LOZENGE PO PRN ×8 (06:13→21:09)
[2023-06-03 06:26] LABS: EOSINOPHILS % (AUTO) 6.5 % (1.0-6.0); HEMATOCRIT 38.2 % (41-53); HEMOGLOBIN 12.5 g/dL (13.5-17.5); LYMPHOCYTES # (AUTO) 1.9 K/uL (1.0-4.8); LYMPHOCYTES % (AUTO) 33.6 % (22.0-44.0); MEAN CORPUSCULAR HEMOGLOBIN 28.7 pg (26.0-34.0); MEAN CORPUSCULAR HGB CONC 32.7 G/dL (31.0-37.0); MEAN CORPUSCULAR VOLUME 88 fL (80-100); MONOCYTES # (AUTO) 0.4 K/uL (0.1-1.0); MONOCYTES % (AUTO) 7.3 % (2.0-9.0); NEUTROPHILS % (AUTO) 51.6 % (40.0-70.0); PLATELET COUNT (AUTO) 395 K/uL (150-450); RED BLOOD CELL COUNT(AUTO) 4.35 MIL/uL (4.50-5.90); WHITE BLOOD COUNT (AUTO) 5.8 K/uL (4.5-11.0)
[2023-06-03] MEDS: MetFORMIN HCL 500 MG TABLET PO SCH ×2 (06:44→16:45)
[2023-06-03] MEDS: INSULIN LISPRO 100 UNITS/ML SQ PRN ×4 (06:46→21:04)
[2023-06-03 07:24] LABS: GLUCOMETER DEV NAME(LOC) 3EX.2; GLUCOSE,POINT OF CARE 298 MG/DL (70-110)
[2023-06-03] MEDS: VARENICLINE TARTRATE 0.5 MG TABLET PO SCH (08:08)
[2023-06-03] MEDS: DIVALPROEX SODIUM 250 MG ER TABLET PO SCH ×3 (08:08→16:45)
[2023-06-03] MEDS: OMEGA-3/DHA/EPA/FISH OIL 1,000 MG CAPSULE PO SCH (08:09)
[2023-06-03] MEDS: CloZAPine 100 MG TABLET PO SCH ×2 (08:09→21:02)
[2023-06-03] MEDS: TOPIRAMATE 100 MG TABLET PO SCH ×2 (08:09→16:45)
[2023-06-03] MEDS: LevETIRAcetam 500 MG TABLET PO SCH ×2 (08:09→16:45)
[2023-06-03 08:32] VITALS: BP 100/62; PULSE 90; RESP 18; TEMP 97.6
[2023-06-03 11:18] LABS: GLUCOMETER DEV NAME(LOC) 3EX.2; GLUCOSE,POINT OF CARE 233 MG/DL (70-110)
[2023-06-03 17:31] LABS: GLUCOMETER DEV NAME(LOC) 3EX.2; GLUCOSE,POINT OF CARE 181 MG/DL (70-110)
[2023-06-03 20:16] VITALS: BP 115/75; PULSE 84; RESP 18; TEMP 97.8
[2023-06-03 20:41] LABS: GLUCOMETER DEV NAME(LOC) 3EX.2; GLUCOSE,POINT OF CARE 182 MG/DL (70-110)
[2023-06-03] MEDS: MELATONIN 5 MG TABLET PO SCH (21:02)
[2023-06-03] MEDS: SENNOSIDES 8.6 MG TABLET PO SCH (21:02)
[2023-06-03] MEDS: QUEtiapine FUMARATE 200 MG TABLET PO SCH (21:02)
[2023-06-03] MEDS: OLANZapine 10 MG TABLET PO SCH (21:02)
[2023-06-03] MEDS: DIVALPROEX SODIUM 500 MG ER TABLET PO SCH (21:02)
[2023-06-03] MEDS: ZOLPIDEM TARTRATE 10 MG TABLET PO PRN (21:09)
[2023-06-04] MEDS: NICOTINE POLACRILEX 4 MG LOZENGE PO PRN ×7 (07:01→21:09)
[2023-06-04] MEDS: MetFORMIN HCL 500 MG TABLET PO SCH ×2 (07:02→16:55)
[2023-06-04] MEDS: INSULIN LISPRO 100 UNITS/ML SQ PRN ×4 (07:05→21:08)
[2023-06-04 07:06] LABS: GLUCOMETER DEV NAME(LOC) 3EX.2; GLUCOSE,POINT OF CARE 288 MG/DL (70-110)
[2023-06-04] MEDS: DIVALPROEX SODIUM 250 MG ER TABLET PO SCH ×3 (08:32→16:54)
[2023-06-04] MEDS: VARENICLINE TARTRATE 0.5 MG TABLET PO SCH (08:32)
[2023-06-04] MEDS: LevETIRAcetam 500 MG TABLET PO SCH ×2 (08:32→16:56)
[2023-06-04] MEDS: OMEGA-3/DHA/EPA/FISH OIL 1,000 MG CAPSULE PO SCH (08:33)
[2023-06-04] MEDS: TOPIRAMATE 100 MG TABLET PO SCH ×2 (08:34→16:55)
[2023-06-04] MEDS: CloZAPine 100 MG TABLET PO SCH ×2 (08:34→20:54)
[2023-06-04 09:14] VITALS: BP 116/78; PULSE 91; RESP 16; TEMP 97.1
[2023-06-04 11:41] LABS: GLUCOMETER DEV NAME(LOC) 3EX.2; GLUCOSE,POINT OF CARE 171 MG/DL (70-110)
[2023-06-04 17:01] LABS: GLUCOMETER DEV NAME(LOC) 3EX.2; GLUCOSE,POINT OF CARE 245 MG/DL (70-110)
[2023-06-04] MEDS: SENNOSIDES 8.6 MG TABLET PO SCH (20:54)
[2023-06-04] MEDS: DIVALPROEX SODIUM 500 MG ER TABLET PO SCH (20:54)
[2023-06-04] MEDS: OLANZapine 10 MG TABLET PO SCH (20:54)
[2023-06-04] MEDS: QUEtiapine FUMARATE 200 MG TABLET PO SCH (20:55)
[2023-06-04] MEDS: MELATONIN 5 MG TABLET PO SCH (20:55)
[2023-06-04 21:16] LABS: GLUCOMETER DEV NAME(LOC) 3EX.2; GLUCOSE,POINT OF CARE 256 MG/DL (70-110)
[2023-06-04 21:23] VITALS: BP 105/69; PULSE 87; RESP 18; TEMP 97.5
[2023-06-05] MEDS: NICOTINE POLACRILEX 4 MG LOZENGE PO PRN ×5 (07:03→20:42)
[2023-06-05] MEDS: MetFORMIN HCL 500 MG TABLET PO SCH ×2 (07:10→16:29)
[2023-06-05 07:11] LABS: GLUCOMETER DEV NAME(LOC) 3EX.2; GLUCOSE,POINT OF CARE 321 MG/DL (70-110)
[2023-06-05] MEDS: INSULIN LISPRO 100 UNITS/ML SQ PRN ×4 (07:12→21:08)
[2023-06-05] MEDS: DIVALPROEX SODIUM 250 MG ER TABLET PO SCH ×3 (08:49→16:29)
[2023-06-05] MEDS: VARENICLINE TARTRATE 0.5 MG TABLET PO SCH (08:50)
[2023-06-05] MEDS: OMEGA-3/DHA/EPA/FISH OIL 1,000 MG CAPSULE PO SCH (08:50)
[2023-06-05] MEDS: LevETIRAcetam 500 MG TABLET PO SCH ×2 (08:50→16:30)
[2023-06-05] MEDS: CloZAPine 100 MG TABLET PO SCH ×2 (08:51→20:46)
[2023-06-05] MEDS: TOPIRAMATE 100 MG TABLET PO SCH ×2 (08:51→16:29)
[2023-06-05 11:41] LABS: GLUCOMETER DEV NAME(LOC) 3EX.2; GLUCOSE,POINT OF CARE 157 MG/DL (70-110)
[2023-06-05 17:01] LABS: GLUCOMETER DEV NAME(LOC) 3EX.2; GLUCOSE,POINT OF CARE 176 MG/DL (70-110)
[2023-06-05 20:31] LABS: GLUCOMETER DEV NAME(LOC) 3EX.2; GLUCOSE,POINT OF CARE 226 MG/DL (70-110)
[2023-06-05 20:44] VITALS: BP 112/70; PULSE 82; RESP 18; TEMP 97.4
[2023-06-05] MEDS: SENNOSIDES 8.6 MG TABLET PO SCH (20:45)
[2023-06-05] MEDS: OLANZapine 10 MG TABLET PO SCH (20:45)
[2023-06-05] MEDS ORDERED: DIVALPROEX SODIUM 500 MG ER TABLET PO ONE (20:45)
[2023-06-05] MEDS: MELATONIN 5 MG TABLET PO SCH (20:46)
[2023-06-05] MEDS: QUEtiapine FUMARATE 200 MG TABLET PO SCH (20:46)
[2023-06-05] MEDS: ZOLPIDEM TARTRATE 10 MG TABLET PO PRN (21:05)
[2023-06-06] MEDS: MetFORMIN HCL 500 MG TABLET PO SCH ×2 (06:53→16:49)
[2023-06-06] MEDS: NICOTINE POLACRILEX 4 MG LOZENGE PO PRN ×8 (06:53→23:01)
[2023-06-06] MEDS: INSULIN LISPRO 100 UNITS/ML SQ PRN ×4 (06:58→21:03)
[2023-06-06 07:01] LABS: GLUCOMETER DEV NAME(LOC) 3EX.2; GLUCOSE,POINT OF CARE 229 MG/DL (70-110)
[2023-06-06 08:14] VITALS: BP 98/66; PULSE 104; RESP 18; TEMP 97.1
[2023-06-06] MEDS: LevETIRAcetam 500 MG TABLET PO SCH ×2 (08:43→16:49)
[2023-06-06] MEDS: OMEGA-3/DHA/EPA/FISH OIL 1,000 MG CAPSULE PO SCH (08:43)
[2023-06-06] MEDS: CloZAPine 100 MG TABLET PO SCH ×2 (08:43→20:51)
[2023-06-06] MEDS: TOPIRAMATE 100 MG TABLET PO SCH ×2 (08:43→16:49)
[2023-06-06 11:41] LABS: GLUCOMETER DEV NAME(LOC) 3EX.2; GLUCOSE,POINT OF CARE 316 MG/DL (70-110)
[2023-06-06 17:21] LABS: GLUCOMETER DEV NAME(LOC) 3EX.2; GLUCOSE,POINT OF CARE 191 MG/DL (70-110)
[2023-06-06 20:50] LABS: GLUCOMETER DEV NAME(LOC) 3EX.2; GLUCOSE,POINT OF CARE 220 MG/DL (70-110)
[2023-06-06] MEDS: OLANZapine 10 MG TABLET PO SCH (20:51)
[2023-06-06] MEDS: QUEtiapine FUMARATE 100 MG TABLET PO SCH (20:51)
[2023-06-06] MEDS: VARENICLINE TARTRATE 0.5 MG TABLET PO SCH (20:51)
[2023-06-06] MEDS: DIVALPROEX SODIUM 500 MG ER TABLET PO SCH (20:51)
[2023-06-06] MEDS: SENNOSIDES 8.6 MG TABLET PO SCH (20:51)
[2023-06-06] MEDS: MELATONIN 5 MG TABLET PO SCH (20:52)
[2023-06-06 22:14] VITALS: BP 108/72; PULSE 84; RESP 18; TEMP 97.2
[2023-06-06] MEDS: ZOLPIDEM TARTRATE 10 MG TABLET PO PRN (22:38)
[2023-06-07 06:46] LABS: GLUCOMETER DEV NAME(LOC) 3EX.2; GLUCOSE,POINT OF CARE 237 MG/DL (70-110)
[2023-06-07] MEDS: MetFORMIN HCL 500 MG TABLET PO SCH ×2 (06:49→16:45)
[2023-06-07] MEDS: INSULIN LISPRO 100 UNITS/ML SQ PRN ×4 (06:50→20:55)
[2023-06-07] MEDS: NICOTINE POLACRILEX 4 MG LOZENGE PO PRN ×7 (08:02→20:38)
[2023-06-07] MEDS: OMEGA-3/DHA/EPA/FISH OIL 1,000 MG CAPSULE PO SCH (09:14)
[2023-06-07] MEDS: CloZAPine 100 MG TABLET PO SCH ×2 (09:14→20:42)
[2023-06-07] MEDS: LevETIRAcetam 500 MG TABLET PO SCH ×2 (09:15→16:45)
[2023-06-07] MEDS: TOPIRAMATE 100 MG TABLET PO SCH ×2 (09:15→16:46)
[2023-06-07 09:44] VITALS: BP 100/68; PULSE 98; RESP 16; TEMP 98
[2023-06-07 11:51] LABS: GLUCOMETER DEV NAME(LOC) 3EX.2; GLUCOSE,POINT OF CARE 227 MG/DL (70-110)
[2023-06-07 17:01] LABS: GLUCOMETER DEV NAME(LOC) 3EX.2; GLUCOSE,POINT OF CARE 189 MG/DL (70-110)
[2023-06-07 20:05] VITALS: RESP 20
[2023-06-07] MEDS: DIVALPROEX SODIUM 500 MG ER TABLET PO SCH (20:41)
[2023-06-07] MEDS: VARENICLINE TARTRATE 0.5 MG TABLET PO SCH (20:41)
[2023-06-07] MEDS: SENNOSIDES 8.6 MG TABLET PO SCH (20:41)
[2023-06-07] MEDS: QUEtiapine FUMARATE 100 MG TABLET PO SCH (20:41)
[2023-06-07] MEDS: OLANZapine 10 MG TABLET PO SCH (20:42)
[2023-06-07] MEDS: MELATONIN 5 MG TABLET PO SCH (20:44)
[2023-06-07 21:06] LABS: GLUCOMETER DEV NAME(LOC) 3EX.2; GLUCOSE,POINT OF CARE 189 MG/DL (70-110)
[2023-06-07] MEDS: ZOLPIDEM TARTRATE 10 MG TABLET PO PRN (21:17)
[2023-06-08] MEDS: MetFORMIN HCL 500 MG TABLET PO SCH ×2 (06:53→16:14)
[2023-06-08] MEDS: INSULIN LISPRO 100 UNITS/ML SQ PRN ×4 (06:55→21:07)
[2023-06-08] MEDS: TOPIRAMATE 100 MG TABLET PO SCH ×2 (09:18→16:15)
[2023-06-08] MEDS: CloZAPine 100 MG TABLET PO SCH ×2 (09:19→20:36)
[2023-06-08] MEDS: LevETIRAcetam 500 MG TABLET PO SCH ×2 (09:19→16:16)
[2023-06-08] MEDS: OMEGA-3/DHA/EPA/FISH OIL 1,000 MG CAPSULE PO SCH (09:19)
[2023-06-08 09:23] VITALS: BP 99/67; PULSE 102; RESP 18; TEMP 97.7
[2023-06-08] MEDS: NICOTINE POLACRILEX 4 MG LOZENGE PO PRN ×7 (09:23→23:06)
[2023-06-08 10:46] LABS: GLUCOMETER DEV NAME(LOC) 3EX.2; GLUCOSE,POINT OF CARE 206 MG/DL (70-110)
[2023-06-08 11:56] LABS: GLUCOMETER DEV NAME(LOC) 3EX.2; GLUCOSE,POINT OF CARE 276 MG/DL (70-110)
[2023-06-08 16:47] LABS: GLUCOMETER DEV NAME(LOC) 3EX.2; GLUCOSE,POINT OF CARE 186 MG/DL (70-110)
[2023-06-08 20:16] LABS: GLUCOMETER DEV NAME(LOC) 3EX.2; GLUCOSE,POINT OF CARE 220 MG/DL (70-110)
[2023-06-08] MEDS: SENNOSIDES 8.6 MG TABLET PO SCH (20:35)
[2023-06-08] MEDS: OLANZapine 10 MG TABLET PO SCH (20:35)
[2023-06-08] MEDS: DIVALPROEX SODIUM 500 MG ER TABLET PO SCH (20:35)
[2023-06-08] MEDS: QUEtiapine FUMARATE 100 MG TABLET PO SCH (20:36)
[2023-06-08] MEDS: VARENICLINE TARTRATE 0.5 MG TABLET PO SCH (20:36)
[2023-06-08] MEDS: MELATONIN 5 MG TABLET PO SCH (20:36)
[2023-06-08 21:32] VITALS: BP 101/71; PULSE 98; RESP 18; TEMP 97.1
[2023-06-08] MEDS: ZOLPIDEM TARTRATE 10 MG TABLET PO PRN (21:59)
[2023-06-09] MEDS: MetFORMIN HCL 500 MG TABLET PO SCH ×2 (06:48→16:41)
[2023-06-09] MEDS: NICOTINE POLACRILEX 4 MG LOZENGE PO PRN ×8 (06:48→22:46)
[2023-06-09] MEDS: INSULIN LISPRO 100 UNITS/ML SQ PRN ×4 (06:49→20:23)
[2023-06-09 07:01] LABS: GLUCOMETER DEV NAME(LOC) 3EX.2; GLUCOSE,POINT OF CARE 228 MG/DL (70-110)
[2023-06-09] MEDS: CloZAPine 100 MG TABLET PO SCH ×2 (07:57→20:21)
[2023-06-09] MEDS: TOPIRAMATE 100 MG TABLET PO SCH ×2 (07:57→16:41)
[2023-06-09] MEDS: OMEGA-3/DHA/EPA/FISH OIL 1,000 MG CAPSULE PO SCH (07:57)
[2023-06-09] MEDS: LevETIRAcetam 500 MG TABLET PO SCH ×2 (07:57→13:39)
[2023-06-09 08:27] VITALS: BP 106/70; PULSE 91; RESP 17; TEMP 97.6
[2023-06-09 11:07] LABS: QUANTIFERON+, Nil Value 0.11 IU/mL; QUANTIFERON+,Mitogen Value 4.61 IU/mL; QUANTIFERON+,TB1 Antigen Value 0.02 IU/mL; QUANTIFERON+,TB2 Antigen Value 0.01 IU/mL; QUANTIFERON, TB GOLD PLUS Negative (Negative)
[2023-06-09 11:11] LABS: GLUCOMETER DEV NAME(LOC) 3EX.2; GLUCOSE,POINT OF CARE 173 MG/DL (70-110)
[2023-06-09] MEDS: VARENICLINE TARTRATE 0.5 MG TABLET PO SCH (16:41)
[2023-06-09 17:11] LABS: GLUCOMETER DEV NAME(LOC) 3EX.2; GLUCOSE,POINT OF CARE 263 MG/DL (70-110)
[2023-06-09] MEDS: DIVALPROEX SODIUM 500 MG ER TABLET PO SCH (20:20)
[2023-06-09 20:21] LABS: GLUCOMETER DEV NAME(LOC) 3EX.2; GLUCOSE,POINT OF CARE 142 MG/DL (70-110)
[2023-06-09] MEDS: QUEtiapine FUMARATE 100 MG TABLET PO SCH (20:21)
[2023-06-09] MEDS: MELATONIN 5 MG TABLET PO SCH (20:21)
[2023-06-09] MEDS: SENNOSIDES 8.6 MG TABLET PO SCH (20:22)
[2023-06-09 20:30] VITALS: BP 114/63; PULSE 89; RESP 18; TEMP 97.4
[2023-06-09] MEDS: ZOLPIDEM TARTRATE 10 MG TABLET PO PRN (22:46)
[2023-06-10] MEDS: NICOTINE POLACRILEX 4 MG LOZENGE PO PRN ×6 (06:10→19:58)
[2023-06-10 06:15] LABS: EOSINOPHILS % (AUTO) 5.5 % (1.0-6.0); HEMATOCRIT 37.5 % (41-53); HEMOGLOBIN 12.3 g/dL (13.5-17.5); LYMPHOCYTES # (AUTO) 2.2 K/uL (1.0-4.8); LYMPHOCYTES % (AUTO) 37.3 % (22.0-44.0); MEAN CORPUSCULAR HEMOGLOBIN 28.8 pg (26.0-34.0); MEAN CORPUSCULAR HGB CONC 32.9 G/dL (31.0-37.0); MEAN CORPUSCULAR VOLUME 88 fL (80-100); MONOCYTES # (AUTO) 0.4 K/uL (0.1-1.0); NEUTROPHILS % (AUTO) 50.2 % (40.0-70.0); PLATELET COUNT (AUTO) 342 K/uL (150-450); RED BLOOD CELL COUNT(AUTO) 4.27 MIL/uL (4.50-5.90); WHITE BLOOD COUNT (AUTO) 5.9 K/uL (4.5-11.0)
[2023-06-10 06:22] LABS: GLUCOMETER DEV NAME(LOC) 3EX.2; GLUCOSE,POINT OF CARE 232 MG/DL (70-110)
[2023-06-10] MEDS: MetFORMIN HCL 500 MG TABLET PO SCH ×2 (06:34→17:11)
[2023-06-10] MEDS: VARENICLINE TARTRATE 0.5 MG TABLET PO SCH ×2 (06:34→17:54)
[2023-06-10] MEDS: INSULIN LISPRO 100 UNITS/ML SQ PRN ×4 (06:35→21:05)
[2023-06-10] MEDS: CloZAPine 100 MG TABLET PO SCH ×2 (08:19→20:22)
[2023-06-10] MEDS: LevETIRAcetam 500 MG TABLET PO SCH ×2 (08:20→17:11)
[2023-06-10] MEDS: TOPIRAMATE 100 MG TABLET PO SCH ×2 (08:20→17:12)
[2023-06-10] MEDS: OMEGA-3/DHA/EPA/FISH OIL 1,000 MG CAPSULE PO SCH (08:26)
[2023-06-10 08:33] VITALS: BP 106/67; PULSE 90; RESP 18; TEMP 97.7
[2023-06-10 11:36] LABS: GLUCOMETER DEV NAME(LOC) 3EX.2; GLUCOSE,POINT OF CARE 240 MG/DL (70-110)
[2023-06-10 16:46] LABS: GLUCOMETER DEV NAME(LOC) 3EX.2; GLUCOSE,POINT OF CARE 190 MG/DL (70-110)
[2023-06-10 20:21] LABS: GLUCOMETER DEV NAME(LOC) 3EX.2; GLUCOSE,POINT OF CARE 171 MG/DL (70-110)
[2023-06-10] MEDS: DIVALPROEX SODIUM 500 MG ER TABLET PO SCH (20:22)
[2023-06-10] MEDS: SENNOSIDES 8.6 MG TABLET PO SCH (20:22)
[2023-06-10] MEDS: MELATONIN 5 MG TABLET PO SCH (20:22)
[2023-06-10] MEDS: QUEtiapine FUMARATE 100 MG TABLET PO SCH (20:23)
[2023-06-10 20:35] VITALS: BP 109/76; PULSE 93; RESP 18; TEMP 97.8
[2023-06-10] MEDS: ZOLPIDEM TARTRATE 10 MG TABLET PO PRN (20:45)
[2023-06-11] MEDS: NICOTINE POLACRILEX 4 MG LOZENGE PO PRN ×6 (05:29→21:46)
[2023-06-11 05:51] LABS: GLUCOMETER DEV NAME(LOC) 3EX.2; GLUCOSE,POINT OF CARE 201 MG/DL (70-110)
[2023-06-11] MEDS: INSULIN LISPRO 100 UNITS/ML SQ PRN ×4 (06:38→21:07)
[2023-06-11] MEDS: VARENICLINE TARTRATE 0.5 MG TABLET PO SCH ×2 (06:38→17:43)
[2023-06-11] MEDS: MetFORMIN HCL 500 MG TABLET PO SCH ×2 (06:38→17:41)
[2023-06-11 09:00] VITALS: BP 91/61; PULSE 101; RESP 18; TEMP 96.9
[2023-06-11] MEDS: OMEGA-3/DHA/EPA/FISH OIL 1,000 MG CAPSULE PO SCH (09:02)
[2023-06-11] MEDS: LevETIRAcetam 500 MG TABLET PO SCH ×2 (09:02→17:42)
[2023-06-11] MEDS: TOPIRAMATE 100 MG TABLET PO SCH ×2 (09:03→17:42)
[2023-06-11] MEDS: CloZAPine 100 MG TABLET PO SCH ×2 (09:03→20:38)
[2023-06-11 11:41] LABS: GLUCOMETER DEV NAME(LOC) 3EX.2; GLUCOSE,POINT OF CARE 241 MG/DL (70-110)
[2023-06-11] MEDS ORDERED: LOPERAMIDE HCL 2 MG CAPSULE PO PRN (16:30)
[2023-06-11 17:16] LABS: GLUCOMETER DEV NAME(LOC) 3EX.2; GLUCOSE,POINT OF CARE 201 MG/DL (70-110)
[2023-06-11 20:36] LABS: GLUCOMETER DEV NAME(LOC) 3EX.2; GLUCOSE,POINT OF CARE 191 MG/DL (70-110)
[2023-06-11] MEDS: DIVALPROEX SODIUM 500 MG ER TABLET PO SCH (20:37)
[2023-06-11] MEDS: MELATONIN 5 MG TABLET PO SCH (20:38)
[2023-06-11] MEDS: QUEtiapine FUMARATE 100 MG TABLET PO SCH (20:38)
[2023-06-11] MEDS: ZOLPIDEM TARTRATE 10 MG TABLET PO PRN (21:46)
[2023-06-11 22:05] VITALS: BP 111/76; PULSE 89; RESP 17; TEMP 97.2
[2023-06-12] MEDS: INSULIN LISPRO 100 UNITS/ML SQ PRN ×4 (06:43→21:07)
[2023-06-12 06:46] LABS: GLUCOMETER DEV NAME(LOC) 3EX.2; GLUCOSE,POINT OF CARE 227 MG/DL (70-110)
[2023-06-12] MEDS: VARENICLINE TARTRATE 0.5 MG TABLET PO SCH ×2 (06:49→16:22)
[2023-06-12] MEDS: MetFORMIN HCL 500 MG TABLET PO SCH ×2 (06:49→16:22)
[2023-06-12 08:00] VITALS: BP 118/79; PULSE 71; RESP 18; TEMP 98
[2023-06-12] MEDS: CloZAPine 100 MG TABLET PO SCH ×2 (09:08→20:45)
[2023-06-12] MEDS: OMEGA-3/DHA/EPA/FISH OIL 1,000 MG CAPSULE PO SCH (09:08)
[2023-06-12] MEDS: TOPIRAMATE 100 MG TABLET PO SCH ×2 (09:08→16:22)
[2023-06-12] MEDS: LevETIRAcetam 500 MG TABLET PO SCH ×2 (09:16→16:22)
[2023-06-12] MEDS: NICOTINE POLACRILEX 4 MG LOZENGE PO PRN ×6 (10:07→20:48)
[2023-06-12 11:06] LABS: CLOZAPINE & NORCLOZAPINE 202 ng/mL; NORCLOZAPINE 47 ng/mL (Not Estab.)
[2023-06-12 12:00] LABS: GLUCOMETER DEV NAME(LOC) 3EX.2; GLUCOSE,POINT OF CARE 250 MG/DL (70-110)
[2023-06-12 18:02] LABS: GLUCOMETER DEV NAME(LOC) 3EX.2; GLUCOSE,POINT OF CARE 187 MG/DL (70-110)
[2023-06-12 20:27] VITALS: BP 112/76; PULSE 76; RESP 18; TEMP 97.8
[2023-06-12] MEDS: MELATONIN 5 MG TABLET PO SCH (20:45)
[2023-06-12 20:46] LABS: GLUCOMETER DEV NAME(LOC) 3EX.2; GLUCOSE,POINT OF CARE 129 MG/DL (70-110)
[2023-06-12] MEDS: DIVALPROEX SODIUM 500 MG ER TABLET PO SCH (20:46)
[2023-06-12] MEDS: QUEtiapine FUMARATE 100 MG TABLET PO SCH (20:46)
[2023-06-12] MEDS: ZOLPIDEM TARTRATE 10 MG TABLET PO PRN (21:36)
[2023-06-13 06:16] LABS: GLUCOMETER DEV NAME(LOC) 3EX.2; GLUCOSE,POINT OF CARE 226 MG/DL (70-110)
[2023-06-13] MEDS: MetFORMIN HCL 500 MG TABLET PO SCH ×2 (06:44→17:18)
[2023-06-13] MEDS: VARENICLINE TARTRATE 0.5 MG TABLET PO SCH ×2 (06:44→17:18)
[2023-06-13] MEDS: INSULIN LISPRO 100 UNITS/ML SQ PRN ×4 (06:45→21:08)
[2023-06-13] MEDS: NICOTINE POLACRILEX 4 MG LOZENGE PO PRN ×6 (08:10→20:47)
[2023-06-13 08:17] VITALS: BP 90/61; PULSE 87; RESP 18; TEMP 98
[2023-06-13] MEDS: LevETIRAcetam 500 MG TABLET PO SCH ×2 (08:45→17:18)
[2023-06-13] MEDS: OMEGA-3/DHA/EPA/FISH OIL 1,000 MG CAPSULE PO SCH (08:45)
[2023-06-13] MEDS: CloZAPine 100 MG TABLET PO SCH ×2 (08:45→20:29)
[2023-06-13] MEDS: TOPIRAMATE 100 MG TABLET PO SCH ×2 (08:46→17:18)
[2023-06-13 11:31] LABS: GLUCOMETER DEV NAME(LOC) 3EX.2; GLUCOSE,POINT OF CARE 161 MG/DL (70-110)
[2023-06-13 16:51] LABS: GLUCOMETER DEV NAME(LOC) 3EX.2; GLUCOSE,POINT OF CARE 299 MG/DL (70-110)
[2023-06-13] MEDS: QUEtiapine FUMARATE 100 MG TABLET PO SCH (20:29)
[2023-06-13] MEDS: DIVALPROEX SODIUM 500 MG ER TABLET PO SCH (20:29)
[2023-06-13] MEDS: MELATONIN 5 MG TABLET PO SCH (20:29)
[2023-06-13 20:31] LABS: GLUCOMETER DEV NAME(LOC) 3EX.2; GLUCOSE,POINT OF CARE 324 MG/DL (70-110)
[2023-06-13] MEDS: ZOLPIDEM TARTRATE 10 MG TABLET PO PRN (21:49)
[2023-06-13 21:53] VITALS: BP 108/70; RESP 18; TEMP 97.6
[2023-06-14 06:31] LABS: GLUCOMETER DEV NAME(LOC) 3EX.2; GLUCOSE,POINT OF CARE 187 MG/DL (70-110)
[2023-06-14] MEDS: INSULIN LISPRO 100 UNITS/ML SQ PRN ×4 (06:48→21:12)
[2023-06-14] MEDS: VARENICLINE TARTRATE 0.5 MG TABLET PO SCH ×2 (06:48→18:13)
[2023-06-14] MEDS: MetFORMIN HCL 500 MG TABLET PO SCH ×2 (06:48→18:12)
[2023-06-14] MEDS: NICOTINE POLACRILEX 4 MG LOZENGE PO PRN ×4 (08:21→22:55)
[2023-06-14] MEDS: LevETIRAcetam 500 MG TABLET PO SCH ×2 (08:22→18:13)
[2023-06-14] MEDS: OMEGA-3/DHA/EPA/FISH OIL 1,000 MG CAPSULE PO SCH (08:22)
[2023-06-14] MEDS: CloZAPine 100 MG TABLET PO SCH ×2 (08:22→20:35)
[2023-06-14] MEDS: TOPIRAMATE 100 MG TABLET PO SCH ×2 (08:23→18:13)
[2023-06-14 09:00] VITALS: BP 91/62; PULSE 91; RESP 18; TEMP 97.3
[2023-06-14 12:01] LABS: GLUCOMETER DEV NAME(LOC) 3EX.2; GLUCOSE,POINT OF CARE 177 MG/DL (70-110)
[2023-06-14 17:06] LABS: GLUCOMETER DEV NAME(LOC) 3EX.2; GLUCOSE,POINT OF CARE 235 MG/DL (70-110)
[2023-06-14] MEDS: DIVALPROEX SODIUM 500 MG ER TABLET PO SCH (20:35)
[2023-06-14] MEDS: MELATONIN 5 MG TABLET PO SCH (20:35)
[2023-06-14] MEDS: QUEtiapine FUMARATE 100 MG TABLET PO SCH (20:35)
[2023-06-14 20:45] VITALS: BP 111/64; PULSE 87; RESP 18; TEMP 97.7
[2023-06-14 21:21] LABS: GLUCOMETER DEV NAME(LOC) 3EX.2; GLUCOSE,POINT OF CARE 211 MG/DL (70-110)
[2023-06-14] MEDS: ZOLPIDEM TARTRATE 10 MG TABLET PO PRN (21:45)
[2023-06-15] MEDS: NICOTINE POLACRILEX 4 MG LOZENGE PO PRN ×6 (05:10→20:27)
[2023-06-15 05:57] LABS: GLUCOMETER DEV NAME(LOC) 3EX.2; GLUCOSE,POINT OF CARE 223 MG/DL (70-110)
[2023-06-15] MEDS: VARENICLINE TARTRATE 0.5 MG TABLET PO SCH ×2 (06:37→17:30)
[2023-06-15] MEDS: MetFORMIN HCL 500 MG TABLET PO SCH ×2 (06:37→17:30)
[2023-06-15 08:15] VITALS: BP 93/61; PULSE 88; RESP 16; TEMP 98.9
[2023-06-15] MEDS: TOPIRAMATE 100 MG TABLET PO SCH ×2 (08:55→17:29)
[2023-06-15] MEDS: OMEGA-3/DHA/EPA/FISH OIL 1,000 MG CAPSULE PO SCH (08:55)
[2023-06-15] MEDS: CloZAPine 100 MG TABLET PO SCH ×2 (08:56→20:26)
[2023-06-15] MEDS: LevETIRAcetam 500 MG TABLET PO SCH ×2 (08:56→17:29)
[2023-06-15] MEDS: INSULIN LISPRO 100 UNITS/ML SQ PRN ×2 (12:05→18:01)
[2023-06-15 12:26] LABS: GLUCOMETER DEV NAME(LOC) 3EX.2; GLUCOSE,POINT OF CARE 189 MG/DL (70-110)
[2023-06-15 17:41] LABS: GLUCOMETER DEV NAME(LOC) 3EX.2; GLUCOSE,POINT OF CARE 212 MG/DL (70-110)
[2023-06-15] MEDS: DIVALPROEX SODIUM 500 MG ER TABLET PO SCH (20:25)
[2023-06-15 20:26] LABS: GLUCOMETER DEV NAME(LOC) 3EX.2; GLUCOSE,POINT OF CARE 117 MG/DL (70-110)
[2023-06-15] MEDS: QUEtiapine FUMARATE 100 MG TABLET PO SCH (20:26)
[2023-06-15] MEDS: MELATONIN 5 MG TABLET PO SCH (20:26)
[2023-06-15 20:39] VITALS: BP 113/63; PULSE 92; RESP 18; TEMP 97.5
[2023-06-15] MEDS: ZOLPIDEM TARTRATE 10 MG TABLET PO PRN (21:22)
[2023-06-16] MEDS: NICOTINE POLACRILEX 4 MG LOZENGE PO PRN ×6 (05:14→20:48)
[2023-06-16 05:26] LABS: GLUCOMETER DEV NAME(LOC) 3EX.2; GLUCOSE,POINT OF CARE 206 MG/DL (70-110)
[2023-06-16] MEDS: INSULIN LISPRO 100 UNITS/ML SQ PRN ×4 (06:34→20:40)
[2023-06-16] MEDS: VARENICLINE TARTRATE 0.5 MG TABLET PO SCH ×2 (06:38→17:29)
[2023-06-16] MEDS: MetFORMIN HCL 500 MG TABLET PO SCH ×2 (06:38→17:28)
[2023-06-16] MEDS: TOPIRAMATE 100 MG TABLET PO SCH ×2 (08:52→17:29)
[2023-06-16] MEDS: CloZAPine 100 MG TABLET PO SCH ×2 (08:52→20:23)
[2023-06-16] MEDS: OMEGA-3/DHA/EPA/FISH OIL 1,000 MG CAPSULE PO SCH (08:53)
[2023-06-16] MEDS: LevETIRAcetam 500 MG TABLET PO SCH ×2 (08:54→17:28)
[2023-06-16 09:12] VITALS: BP 110/68; PULSE 70; RESP 18; TEMP 97.6
[2023-06-16 16:21] LABS: GLUCOMETER DEV NAME(LOC) 3EX.2; GLUCOSE,POINT OF CARE 207 MG/DL (70-110)
[2023-06-16 16:37] LABS: GLUCOMETER DEV NAME(LOC) 3EX.2; GLUCOSE,POINT OF CARE 189 MG/DL (70-110)
[2023-06-16] MEDS: LOPERAMIDE HCL 2 MG CAPSULE PO SCH (17:00)
[2023-06-16 20:05] VITALS: BP 115/77; PULSE 82; RESP 18; TEMP 97.3
[2023-06-16 20:21] LABS: GLUCOMETER DEV NAME(LOC) 3EX.2; GLUCOSE,POINT OF CARE 237 MG/DL (70-110)
[2023-06-16] MEDS: MELATONIN 5 MG TABLET PO SCH (20:23)
[2023-06-16] MEDS: QUEtiapine FUMARATE 100 MG TABLET PO SCH (20:23)
[2023-06-16] MEDS: DIVALPROEX SODIUM 500 MG ER TABLET PO SCH (20:24)
[2023-06-16] MEDS: ZOLPIDEM TARTRATE 10 MG TABLET PO PRN (20:44)
[2023-06-17] MEDS: NICOTINE POLACRILEX 4 MG LOZENGE PO PRN ×6 (05:23→20:21)
[2023-06-17 06:01] LABS: GLUCOMETER DEV NAME(LOC) 3EX.2; GLUCOSE,POINT OF CARE 184 MG/DL (70-110)
[2023-06-17] MEDS: VARENICLINE TARTRATE 0.5 MG TABLET PO SCH ×2 (06:38→17:05)
[2023-06-17] MEDS: INSULIN LISPRO 100 UNITS/ML SQ PRN ×4 (06:38→21:20)
[2023-06-17] MEDS: MetFORMIN HCL 500 MG TABLET PO SCH ×2 (06:38→17:05)
[2023-06-17] MEDS: OMEGA-3/DHA/EPA/FISH OIL 1,000 MG CAPSULE PO SCH (08:47)
[2023-06-17] MEDS: LOPERAMIDE HCL 2 MG CAPSULE PO SCH ×3 (08:47→17:05)
[2023-06-17] MEDS: LevETIRAcetam 500 MG TABLET PO SCH ×2 (08:47→17:05)
[2023-06-17] MEDS: CloZAPine 100 MG TABLET PO SCH ×2 (08:50→20:37)
[2023-06-17] MEDS: TOPIRAMATE 100 MG TABLET PO SCH ×2 (08:50→17:05)
[2023-06-17 10:51] LABS: BASOPHILS % (AUTO) 0.9 % (0.0-2.0); EOSINOPHILS % (AUTO) 2.8 % (1.0-6.0); HEMATOCRIT 38.9 % (41-53); HEMOGLOBIN 12.8 g/dL (13.5-17.5); LYMPHOCYTES # (AUTO) 1.6 K/uL (1.0-4.8); LYMPHOCYTES % (AUTO) 22.9 % (22.0-44.0); MEAN CORPUSCULAR HEMOGLOBIN 29.1 pg (26.0-34.0); MEAN CORPUSCULAR HGB CONC 32.8 G/dL (31.0-37.0); MEAN CORPUSCULAR VOLUME 89 fL (80-100); MONOCYTES # (AUTO) 0.5 K/uL (0.1-1.0); MONOCYTES % (AUTO) 7.6 % (2.0-9.0); NEUTROPHILS # (AUTO) 4.6 K/uL (1.8-7.7); NEUTROPHILS % (AUTO) 65.8 % (40.0-70.0); PLATELET COUNT (AUTO) 309 K/uL (150-450); RED BLOOD CELL COUNT(AUTO) 4.38 MIL/uL (4.50-5.90); RED CELL DISTRIBUTION WIDTH 15.4 % (11.5-14.5)
[2023-06-17 11:26] LABS: GLUCOMETER DEV NAME(LOC) 3EX.2; GLUCOSE,POINT OF CARE 329 MG/DL (70-110)
[2023-06-17 12:42] VITALS: BP 120/79; PULSE 87; RESP 18; TEMP 97.6
[2023-06-17 16:37] LABS: GLUCOMETER DEV NAME(LOC) 3EX.2; GLUCOSE,POINT OF CARE 218 MG/DL (70-110)
[2023-06-17 20:26] LABS: GLUCOMETER DEV NAME(LOC) 3EX.2; GLUCOSE,POINT OF CARE 273 MG/DL (70-110)
[2023-06-17] MEDS: DIVALPROEX SODIUM 500 MG ER TABLET PO SCH (20:37)
[2023-06-17] MEDS: QUEtiapine FUMARATE 100 MG TABLET PO SCH (20:38)
[2023-06-17] MEDS: MELATONIN 5 MG TABLET PO SCH (20:38)
[2023-06-17 20:39] VITALS: BP 125/75; PULSE 80; RESP 18; TEMP 97.5
[2023-06-17] MEDS: ZOLPIDEM TARTRATE 10 MG TABLET PO PRN (21:11)
[2023-06-18] MEDS: NICOTINE POLACRILEX 4 MG LOZENGE PO PRN ×6 (05:31→22:15)
[2023-06-18 05:47] LABS: GLUCOMETER DEV NAME(LOC) 3EX.2; GLUCOSE,POINT OF CARE 192 MG/DL (70-110)
[2023-06-18] MEDS: VARENICLINE TARTRATE 0.5 MG TABLET PO SCH ×2 (06:39→16:16)
[2023-06-18] MEDS: MetFORMIN HCL 500 MG TABLET PO SCH ×2 (06:39→17:04)
[2023-06-18] MEDS: INSULIN LISPRO 100 UNITS/ML SQ PRN ×4 (06:41→21:05)
[2023-06-18 08:14] VITALS: BP 96/61; PULSE 85; RESP 18; TEMP 97.5; O2SAT 96
[2023-06-18] MEDS: LevETIRAcetam 500 MG TABLET PO SCH ×2 (08:35→16:16)
[2023-06-18] MEDS: OMEGA-3/DHA/EPA/FISH OIL 1,000 MG CAPSULE PO SCH (08:36)
[2023-06-18] MEDS: TOPIRAMATE 100 MG TABLET PO SCH ×2 (08:36→16:16)
[2023-06-18] MEDS: LOPERAMIDE HCL 2 MG CAPSULE PO SCH ×3 (08:36→17:04)
[2023-06-18] MEDS: CloZAPine 100 MG TABLET PO SCH ×2 (08:42→21:07)
[2023-06-18 08:54] VITALS: BP 96/61; PULSE 85; RESP 18; TEMP 97.6
[2023-06-18 16:36] LABS: GLUCOMETER DEV NAME(LOC) 3EX.2; GLUCOSE,POINT OF CARE 278 MG/DL (70-110)
[2023-06-18 16:36] LABS: GLUCOMETER DEV NAME(LOC) 3EX.2; GLUCOSE,POINT OF CARE 169 MG/DL (70-110)
[2023-06-18 20:25] VITALS: RESP 18
[2023-06-18 20:31] LABS: GLUCOMETER DEV NAME(LOC) 3EX.2; GLUCOSE,POINT OF CARE 204 MG/DL (70-110)
[2023-06-18] MEDS: DIVALPROEX SODIUM 500 MG ER TABLET PO SCH (21:07)
[2023-06-18] MEDS: QUEtiapine FUMARATE 100 MG TABLET PO SCH (21:08)
[2023-06-18] MEDS: MELATONIN 5 MG TABLET PO SCH (21:08)
[2023-06-18] MEDS: ZOLPIDEM TARTRATE 10 MG TABLET PO PRN (21:45)
[2023-06-19 06:16] LABS: GLUCOMETER DEV NAME(LOC) 3EX.2; GLUCOSE,POINT OF CARE 279 MG/DL (70-110)
[2023-06-19] MEDS: INSULIN LISPRO 100 UNITS/ML SQ PRN ×4 (06:39→21:12)
[2023-06-19] MEDS: VARENICLINE TARTRATE 0.5 MG TABLET PO SCH ×2 (06:39→16:27)
[2023-06-19] MEDS: MetFORMIN HCL 500 MG TABLET PO SCH ×2 (06:39→16:27)
[2023-06-19 08:09] VITALS: BP 100/60; PULSE 89; RESP 18; TEMP 97.8
[2023-06-19] MEDS: OMEGA-3/DHA/EPA/FISH OIL 1,000 MG CAPSULE PO SCH (08:27)
[2023-06-19] MEDS: LevETIRAcetam 500 MG TABLET PO SCH ×2 (08:27→16:26)
[2023-06-19] MEDS: TOPIRAMATE 100 MG TABLET PO SCH ×2 (08:28→16:26)
[2023-06-19] MEDS: CloZAPine 100 MG TABLET PO SCH ×2 (08:29→20:30)
[2023-06-19] MEDS: LOPERAMIDE HCL 2 MG CAPSULE PO SCH ×3 (08:30→16:27)
[2023-06-19] MEDS: NICOTINE POLACRILEX 4 MG LOZENGE PO PRN ×4 (09:21→21:55)
[2023-06-19 11:41] LABS: GLUCOMETER DEV NAME(LOC) 3EX.2; GLUCOSE,POINT OF CARE 195 MG/DL (70-110)
[2023-06-19 17:06] LABS: GLUCOMETER DEV NAME(LOC) 3EX.2; GLUCOSE,POINT OF CARE 275 MG/DL (70-110)
[2023-06-19] MEDS: MELATONIN 5 MG TABLET PO SCH (20:30)
[2023-06-19] MEDS: QUEtiapine FUMARATE 100 MG TABLET PO SCH (20:30)
[2023-06-19] MEDS: DIVALPROEX SODIUM 500 MG ER TABLET PO SCH (20:30)
[2023-06-19 20:45] VITALS: BP 109/66; PULSE 79; RESP 18; TEMP 97.5
[2023-06-19] MEDS: ZOLPIDEM TARTRATE 10 MG TABLET PO PRN (20:55)
[2023-06-19 20:56] LABS: GLUCOMETER DEV NAME(LOC) 3EX.2; GLUCOSE,POINT OF CARE 142 MG/DL (70-110)
[2023-06-20] MEDS: NICOTINE POLACRILEX 4 MG LOZENGE PO PRN ×7 (03:33→23:00)
[2023-06-20 05:41] LABS: GLUCOMETER DEV NAME(LOC) 3EX.2; GLUCOSE,POINT OF CARE 236 MG/DL (70-110)
[2023-06-20] MEDS: VARENICLINE TARTRATE 1 MG TABLET PO SCH (06:39)
[2023-06-20] MEDS: MetFORMIN HCL 500 MG TABLET PO SCH ×2 (06:40→16:29)
[2023-06-20 09:00] VITALS: BP 102/72; PULSE 82; RESP 18; TEMP 97
[2023-06-20] MEDS: CloZAPine 100 MG TABLET PO SCH ×2 (09:07→20:35)
[2023-06-20] MEDS: LOPERAMIDE HCL 2 MG CAPSULE PO SCH ×3 (09:07→16:30)
[2023-06-20] MEDS: LevETIRAcetam 500 MG TABLET PO SCH ×2 (09:07→16:29)
[2023-06-20] MEDS: OMEGA-3/DHA/EPA/FISH OIL 1,000 MG CAPSULE PO SCH (09:07)
[2023-06-20] MEDS: TOPIRAMATE 100 MG TABLET PO SCH ×2 (09:08→16:29)
[2023-06-20 11:46] LABS: GLUCOMETER DEV NAME(LOC) 3EX.2; GLUCOSE,POINT OF CARE 193 MG/DL (70-110)
[2023-06-20] MEDS: INSULIN LISPRO 100 UNITS/ML SQ PRN ×2 (12:08→18:36)
[2023-06-20] MEDS: VARENICLINE TARTRATE 0.5 MG TABLET PO SCH (16:29)
[2023-06-20 16:45] LABS: GLUCOMETER DEV NAME(LOC) 3EX.2; GLUCOSE,POINT OF CARE 219 MG/DL (70-110)
[2023-06-20 20:35] LABS: GLUCOMETER DEV NAME(LOC) 3EX.2; GLUCOSE,POINT OF CARE 114 MG/DL (70-110)
[2023-06-20] MEDS: QUEtiapine FUMARATE 100 MG TABLET PO SCH (20:35)
[2023-06-20] MEDS: MELATONIN 5 MG TABLET PO SCH (20:35)
[2023-06-20] MEDS: DIVALPROEX SODIUM 500 MG ER TABLET PO SCH (20:35)
[2023-06-20 20:55] VITALS: BP 98/62; PULSE 68; RESP 18; TEMP 97.6
[2023-06-20] MEDS: ZOLPIDEM TARTRATE 10 MG TABLET PO PRN (21:23)
[2023-06-21] MEDS: NICOTINE POLACRILEX 4 MG LOZENGE PO PRN ×5 (04:45→21:25)
[2023-06-21 05:25] LABS: GLUCOMETER DEV NAME(LOC) 3EX.2; GLUCOSE,POINT OF CARE 227 MG/DL (70-110)
[2023-06-21] MEDS: INSULIN LISPRO 100 UNITS/ML SQ PRN ×4 (06:49→21:28)
[2023-06-21] MEDS: MetFORMIN HCL 500 MG TABLET PO SCH ×2 (06:50→17:05)
[2023-06-21] MEDS: VARENICLINE TARTRATE 1 MG TABLET PO SCH ×2 (06:50→17:07)
[2023-06-21] MEDS: TOPIRAMATE 100 MG TABLET PO SCH ×2 (08:29→17:06)
[2023-06-21] MEDS: OMEGA-3/DHA/EPA/FISH OIL 1,000 MG CAPSULE PO SCH (08:29)
[2023-06-21] MEDS: LevETIRAcetam 500 MG TABLET PO SCH ×2 (08:31→17:06)
[2023-06-21] MEDS: LOPERAMIDE HCL 2 MG CAPSULE PO SCH ×3 (08:34→17:06)
[2023-06-21] MEDS: CloZAPine 100 MG TABLET PO SCH ×2 (08:34→21:24)
[2023-06-21 09:12] VITALS: BP 101/83; PULSE 83; RESP 18; TEMP 97.9
[2023-06-21 11:56] LABS: GLUCOMETER DEV NAME(LOC) 3EX.2; GLUCOSE,POINT OF CARE 216 MG/DL (70-110)
[2023-06-21 16:41] LABS: GLUCOMETER DEV NAME(LOC) 3EX.2; GLUCOSE,POINT OF CARE 261 MG/DL (70-110)
[2023-06-21 20:10] VITALS: RESP 20
[2023-06-21] MEDS: MELATONIN 5 MG TABLET PO SCH (21:24)
[2023-06-21] MEDS: DIVALPROEX SODIUM 500 MG ER TABLET PO SCH (21:24)
[2023-06-21] MEDS: ZOLPIDEM TARTRATE 10 MG TABLET PO PRN (21:25)
[2023-06-21] MEDS: QUEtiapine FUMARATE 100 MG TABLET PO SCH (21:25)
[2023-06-21 21:40] LABS: GLUCOMETER DEV NAME(LOC) 3EX.2; GLUCOSE,POINT OF CARE 154 MG/DL (70-110)
[2023-06-22 06:16] LABS: GLUCOMETER DEV NAME(LOC) 3EX.2; GLUCOSE,POINT OF CARE 217 MG/DL (70-110)
[2023-06-22] MEDS: MetFORMIN HCL 500 MG TABLET PO SCH ×2 (06:50→17:17)
[2023-06-22] MEDS: VARENICLINE TARTRATE 1 MG TABLET PO SCH ×2 (06:50→17:23)
[2023-06-22] MEDS: INSULIN LISPRO 100 UNITS/ML SQ PRN ×4 (06:51→21:24)
[2023-06-22 09:11] VITALS: BP 97/60; PULSE 102; RESP 19; TEMP 98
[2023-06-22] MEDS: LevETIRAcetam 500 MG TABLET PO SCH ×2 (09:11→17:16)
[2023-06-22] MEDS: OMEGA-3/DHA/EPA/FISH OIL 1,000 MG CAPSULE PO SCH (09:11)
[2023-06-22] MEDS: LOPERAMIDE HCL 2 MG CAPSULE PO SCH ×3 (09:12→17:17)
[2023-06-22] MEDS: TOPIRAMATE 100 MG TABLET PO SCH ×2 (09:12→17:17)
[2023-06-22] MEDS: CloZAPine 100 MG TABLET PO SCH ×2 (09:12→20:58)
[2023-06-22 11:32] LABS: GLUCOMETER DEV NAME(LOC) 3EX.2; GLUCOSE,POINT OF CARE 162 MG/DL (70-110)
[2023-06-22] MEDS: NICOTINE POLACRILEX 4 MG LOZENGE PO PRN ×3 (14:43→21:02)
[2023-06-22 17:06] LABS: GLUCOMETER DEV NAME(LOC) 3EX.2; GLUCOSE,POINT OF CARE 156 MG/DL (70-110)
[2023-06-22] MEDS: DIVALPROEX SODIUM 500 MG ER TABLET PO SCH (20:58)
[2023-06-22] MEDS: MELATONIN 5 MG TABLET PO SCH (20:58)
[2023-06-22] MEDS: QUEtiapine FUMARATE 100 MG TABLET PO SCH (21:00)
[2023-06-22] MEDS: ZOLPIDEM TARTRATE 10 MG TABLET PO PRN (21:01)
[2023-06-22 21:46] LABS: GLUCOMETER DEV NAME(LOC) 3EX.2; GLUCOSE,POINT OF CARE 111 MG/DL (70-110)
[2023-06-22 23:09] VITALS: BP 108/64; PULSE 75; RESP 18; TEMP 97.8
[2023-06-23] MEDS: NICOTINE POLACRILEX 4 MG LOZENGE PO PRN ×5 (06:19→19:13)
[2023-06-23] MEDS: VARENICLINE TARTRATE 1 MG TABLET PO SCH ×2 (06:39→17:22)
[2023-06-23] MEDS: MetFORMIN HCL 500 MG TABLET PO SCH ×2 (06:39→17:22)
[2023-06-23] MEDS: INSULIN LISPRO 100 UNITS/ML SQ PRN ×4 (06:41→20:56)
[2023-06-23 07:06] LABS: GLUCOMETER DEV NAME(LOC) 3EX.2; GLUCOSE,POINT OF CARE 185 MG/DL (70-110)
[2023-06-23 09:00] VITALS: BP 115/67; PULSE 72; RESP 20; TEMP 98.2
[2023-06-23] MEDS: TOPIRAMATE 100 MG TABLET PO SCH ×2 (09:09→17:22)
[2023-06-23] MEDS: LevETIRAcetam 500 MG TABLET PO SCH ×2 (09:09→17:22)
[2023-06-23] MEDS: OMEGA-3/DHA/EPA/FISH OIL 1,000 MG CAPSULE PO SCH (09:09)
[2023-06-23] MEDS: CloZAPine 100 MG TABLET PO SCH ×2 (09:09→20:58)
[2023-06-23] MEDS: LOPERAMIDE HCL 2 MG CAPSULE PO SCH ×3 (09:10→17:22)
[2023-06-23 11:46] LABS: GLUCOMETER DEV NAME(LOC) 3EX.2; GLUCOSE,POINT OF CARE 167 MG/DL (70-110)
[2023-06-23 16:36] LABS: GLUCOMETER DEV NAME(LOC) 3EX.2; GLUCOSE,POINT OF CARE 226 MG/DL (70-110)
[2023-06-23] MEDS: ZOLPIDEM TARTRATE 10 MG TABLET PO PRN (20:56)
[2023-06-23] MEDS: MELATONIN 5 MG TABLET PO SCH (20:56)
[2023-06-23] MEDS: DIVALPROEX SODIUM 500 MG ER TABLET PO SCH (20:59)
[2023-06-23] MEDS: QUEtiapine FUMARATE 100 MG TABLET PO SCH (20:59)
[2023-06-23 21:05] VITALS: BP 124/78; PULSE 76; RESP 18; TEMP 98.1
[2023-06-23 21:31] LABS: GLUCOMETER DEV NAME(LOC) 3EX.2; GLUCOSE,POINT OF CARE 143 MG/DL (70-110)
[2023-06-24] MEDS: NICOTINE POLACRILEX 4 MG LOZENGE PO PRN ×4 (06:27→18:50)
[2023-06-24] MEDS: INSULIN LISPRO 100 UNITS/ML SQ PRN ×4 (06:35→21:15)
[2023-06-24] MEDS: VARENICLINE TARTRATE 1 MG TABLET PO SCH ×2 (06:41→17:41)
[2023-06-24] MEDS: MetFORMIN HCL 500 MG TABLET PO SCH ×2 (06:41→17:40)
[2023-06-24 07:21] LABS: GLUCOMETER DEV NAME(LOC) 3EX.2; GLUCOSE,POINT OF CARE 166 MG/DL (70-110)
[2023-06-24] MEDS: TOPIRAMATE 100 MG TABLET PO SCH ×2 (09:13→17:40)
[2023-06-24] MEDS: CloZAPine 100 MG TABLET PO SCH ×2 (09:13→21:03)
[2023-06-24] MEDS: OMEGA-3/DHA/EPA/FISH OIL 1,000 MG CAPSULE PO SCH (09:13)
[2023-06-24] MEDS: LOPERAMIDE HCL 2 MG CAPSULE PO SCH ×3 (09:13→17:41)
[2023-06-24] MEDS: LevETIRAcetam 500 MG TABLET PO SCH ×2 (09:13→17:40)
[2023-06-24 11:56] LABS: GLUCOMETER DEV NAME(LOC) 3EX.2; GLUCOSE,POINT OF CARE 236 MG/DL (70-110)
[2023-06-24 12:05] VITALS: BP 99/69; PULSE 81; RESP 17; TEMP 97.9
[2023-06-24 13:12] LABS: BASOPHILS % (AUTO) 1.3 % (0.0-2.0); EOSINOPHILS % (AUTO) 1.9 % (1.0-6.0); HEMATOCRIT 41.5 % (41-53); HEMOGLOBIN 13.7 g/dL (13.5-17.5); LYMPHOCYTES # (AUTO) 1.8 K/uL (1.0-4.8); LYMPHOCYTES % (AUTO) 21.9 % (22.0-44.0); MEAN CORPUSCULAR HEMOGLOBIN 29.1 pg (26.0-34.0); MEAN CORPUSCULAR HGB CONC 33.1 G/dL (31.0-37.0); MEAN CORPUSCULAR VOLUME 88 fL (80-100); MONOCYTES # (AUTO) 0.3 K/uL (0.1-1.0); MONOCYTES % (AUTO) 4.2 % (2.0-9.0); NEUTROPHILS # (AUTO) 5.7 K/uL (1.8-7.7); NEUTROPHILS % (AUTO) 70.7 % (40.0-70.0); PLATELET COUNT (AUTO) 303 K/uL (150-450); RED BLOOD CELL COUNT(AUTO) 4.73 MIL/uL (4.50-5.90); RED CELL DISTRIBUTION WIDTH 15.3 % (11.5-14.5); WHITE BLOOD COUNT (AUTO) 8.1 K/uL (4.5-11.0)
[2023-06-24 16:41] LABS: GLUCOMETER DEV NAME(LOC) 3EX.2; GLUCOSE,POINT OF CARE 144 MG/DL (70-110)
[2023-06-24 20:56] LABS: GLUCOMETER DEV NAME(LOC) 3EX.2; GLUCOSE,POINT OF CARE 143 MG/DL (70-110)
[2023-06-24] MEDS: QUEtiapine FUMARATE 100 MG TABLET PO SCH (21:03)
[2023-06-24] MEDS: MELATONIN 5 MG TABLET PO SCH (21:03)
[2023-06-24] MEDS: DIVALPROEX SODIUM 500 MG ER TABLET PO SCH (21:03)
[2023-06-24 21:30] VITALS: RESP 18
[2023-06-25] MEDS: NICOTINE POLACRILEX 4 MG LOZENGE PO PRN ×4 (06:53→20:30)
[2023-06-25] MEDS: VARENICLINE TARTRATE 1 MG TABLET PO SCH ×2 (07:00→16:13)
[2023-06-25] MEDS: MetFORMIN HCL 500 MG TABLET PO SCH ×2 (07:00→16:13)
[2023-06-25 07:01] LABS: GLUCOMETER DEV NAME(LOC) 3EX.2; GLUCOSE,POINT OF CARE 168 MG/DL (70-110)
[2023-06-25] MEDS: INSULIN LISPRO 100 UNITS/ML SQ PRN ×3 (07:06→18:10)
[2023-06-25] MEDS: OMEGA-3/DHA/EPA/FISH OIL 1,000 MG CAPSULE PO SCH (08:17)
[2023-06-25] MEDS: CloZAPine 100 MG TABLET PO SCH ×2 (08:17→21:00)
[2023-06-25] MEDS: LevETIRAcetam 500 MG TABLET PO SCH ×2 (08:18→16:13)
[2023-06-25] MEDS: LOPERAMIDE HCL 2 MG CAPSULE PO SCH ×3 (08:18→16:13)
[2023-06-25] MEDS: TOPIRAMATE 100 MG TABLET PO SCH ×2 (08:18→16:13)
[2023-06-25 08:54] VITALS: BP 103/62; PULSE 76; RESP 17; TEMP 97.6
[2023-06-25 12:01] LABS: GLUCOMETER DEV NAME(LOC) 3EX.2; GLUCOSE,POINT OF CARE 162 MG/DL (70-110)
[2023-06-25 17:11] LABS: GLUCOMETER DEV NAME(LOC) 3EX.2; GLUCOSE,POINT OF CARE 172 MG/DL (70-110)
[2023-06-25 20:51] LABS: GLUCOMETER DEV NAME(LOC) 3EX.2; GLUCOSE,POINT OF CARE 107 MG/DL (70-110)
[2023-06-25] MEDS: MELATONIN 5 MG TABLET PO SCH (21:00)
[2023-06-25] MEDS: QUEtiapine FUMARATE 100 MG TABLET PO SCH (21:00)
[2023-06-25] MEDS: DIVALPROEX SODIUM 500 MG ER TABLET PO SCH (21:01)
[2023-06-25 21:13] VITALS: BP 104/67; PULSE 83; RESP 18; TEMP 98
[2023-06-26 07:01] LABS: GLUCOMETER DEV NAME(LOC) 3EX.2; GLUCOSE,POINT OF CARE 169 MG/DL (70-110)
[2023-06-26] MEDS: INSULIN LISPRO 100 UNITS/ML SQ PRN ×4 (07:30→21:20)
[2023-06-26] MEDS: MetFORMIN HCL 500 MG TABLET PO SCH ×2 (07:34→17:20)
[2023-06-26] MEDS: VARENICLINE TARTRATE 1 MG TABLET PO SCH ×2 (07:34→18:09)
[2023-06-26 09:20] VITALS: BP 107/81; PULSE 71; RESP 18; TEMP 97.7
[2023-06-26] MEDS: NICOTINE POLACRILEX 4 MG LOZENGE PO PRN ×4 (09:22→21:15)
[2023-06-26] MEDS: CloZAPine 100 MG TABLET PO SCH ×2 (09:25→21:10)
[2023-06-26] MEDS: LevETIRAcetam 500 MG TABLET PO SCH ×3 (09:25→21:10)
[2023-06-26] MEDS: TOPIRAMATE 100 MG TABLET PO SCH ×2 (09:26→16:35)
[2023-06-26] MEDS: OMEGA-3/DHA/EPA/FISH OIL 1,000 MG CAPSULE PO SCH (09:26)
[2023-06-26] MEDS: LOPERAMIDE HCL 2 MG CAPSULE PO SCH ×3 (09:26→16:34)
[2023-06-26 11:26] LABS: GLUCOMETER DEV NAME(LOC) 3EX.2; GLUCOSE,POINT OF CARE 158 MG/DL (70-110)
[2023-06-26 16:36] LABS: GLUCOMETER DEV NAME(LOC) 3EX.2; GLUCOSE,POINT OF CARE 194 MG/DL (70-110)
[2023-06-26 20:16] VITALS: RESP 20
[2023-06-26] MEDS: QUEtiapine FUMARATE 100 MG TABLET PO SCH (21:10)
[2023-06-26] MEDS: MELATONIN 5 MG TABLET PO SCH (21:10)
[2023-06-26] MEDS: ZOLPIDEM TARTRATE 10 MG TABLET PO PRN (21:15)
[2023-06-26 21:26] LABS: GLUCOMETER DEV NAME(LOC) 3EX.2; GLUCOSE,POINT OF CARE 194 MG/DL (70-110)
[2023-06-27] VITALS (11 sets, daily range): BP systolic 82–103; BP diastolic 46–69; PULSE 68–97; RESP 17–18; TEMP 97.3–98.2
[2023-06-27] MEDS: VARENICLINE TARTRATE 1 MG TABLET PO SCH ×2 (07:01→17:19)
[2023-06-27] MEDS: MetFORMIN HCL 500 MG TABLET PO SCH ×2 (07:01→17:19)
[2023-06-27] MEDS: INSULIN LISPRO 100 UNITS/ML SQ PRN ×4 (07:02→21:11)
[2023-06-27 07:06] LABS: GLUCOMETER DEV NAME(LOC) 3EX.2; GLUCOSE,POINT OF CARE 206 MG/DL (70-110)
[2023-06-27] MEDS: LevETIRAcetam 500 MG TABLET PO SCH ×4 (08:25→21:06)
[2023-06-27] MEDS: LOPERAMIDE HCL 2 MG CAPSULE PO SCH ×3 (08:25→16:58)
[2023-06-27] MEDS: OMEGA-3/DHA/EPA/FISH OIL 1,000 MG CAPSULE PO SCH (08:26)
[2023-06-27] MEDS: CloZAPine 100 MG TABLET PO SCH ×4 (08:26→21:06)
[2023-06-27] MEDS: TOPIRAMATE 100 MG TABLET PO SCH ×3 (08:26→16:58)
[2023-06-27] MEDS: DIVALPROEX SODIUM 500 MG ER TABLET PO SCH ×3 (08:26→16:58)
[2023-06-27 11:12] LABS: GLUCOMETER DEV NAME(LOC) 3EX.2; GLUCOSE,POINT OF CARE 203 MG/DL (70-110)
[2023-06-27 12:07] LABS: CLOZAPINE & NORCLOZAPINE 315 ng/mL; NORCLOZAPINE 72 ng/mL (Not Estab.)
[2023-06-27 15:31] LABS: BASOPHILS % (AUTO) 0.8 % (0.0-2.0); EOSINOPHILS % (AUTO) 2.9 % (1.0-6.0); HEMATOCRIT 40.9 % (41-53); HEMOGLOBIN 13.4 g/dL (13.5-17.5); LYMPHOCYTES # (AUTO) 2.1 K/uL (1.0-4.8); LYMPHOCYTES % (AUTO) 37.2 % (22.0-44.0); MEAN CORPUSCULAR HGB CONC 32.8 G/dL (31.0-37.0); MEAN CORPUSCULAR VOLUME 89 fL (80-100); MONOCYTES # (AUTO) 0.4 K/uL (0.1-1.0); MONOCYTES % (AUTO) 7.4 % (2.0-9.0); NEUTROPHILS % (AUTO) 51.7 % (40.0-70.0); PLATELET COUNT (AUTO) 271 K/uL (150-450); RED BLOOD CELL COUNT(AUTO) 4.62 MIL/uL (4.50-5.90); WHITE BLOOD COUNT (AUTO) 5.8 K/uL (4.5-11.0)
[2023-06-27 15:59] LABS: ALANINE AMINOTRANSFERASE 7 U/L (12-78); ALBUMIN 2.9 g/dL (3.4-5.0); ALKALINE PHOSPHATASE 86 U/L (46-116); ANION GAP 12 mmol/L (8-16); ASPARTATE AMINOTRANSFERASE 7 U/L (15-37); BILIRUBIN,TOTAL 0.2 mg/dL (0.1-1.0); CALCIUM, TOTAL 8.6 mg/dL (8.8-10.5); CARBON DIOXIDE 25 mmol/L (22-29); CHLORIDE 102 mmol/L (98-107); CREATININE 0.95 mg/dL (0.60-1.30); GLOMERULAR FILTR. RATE CALC > 60 mL/min (>60); GLUCOSE,RANDOM 202 mg/dL (70-110); PHOSPHORUS 2.9 mg/dL (2.5-4.9); POTASSIUM 3.9 mmol/L (3.5-5.1); SODIUM SERUM 139 mmol/L (136-145); TOTAL PROTEIN, SERUM 6.8 g/dL (6.4-8.2); UREA NITROGEN, BLOOD 15 mg/dL (7-18)
[2023-06-27 16:40] LABS: GLUCOMETER DEV NAME(LOC) 3EX.2; GLUCOSE,POINT OF CARE 206 MG/DL (70-110)
[2023-06-27 19:54] LABS: COVID AG,FIA SOURCE NASAL SWAB
[2023-06-27 20:43] LABS: SARS-COV2 (COVID) ANTIGEN,FIA Negative (Negative)
[2023-06-27] MEDS: NICOTINE POLACRILEX 4 MG LOZENGE PO PRN (20:49)
[2023-06-27 20:51] LABS: GLUCOMETER DEV NAME(LOC) 3EX.2; GLUCOSE,POINT OF CARE 182 MG/DL (70-110)
[2023-06-27] MEDS: QUEtiapine FUMARATE 100 MG TABLET PO SCH (21:05)
[2023-06-27] MEDS: ZOLPIDEM TARTRATE 10 MG TABLET PO PRN (21:06)
[2023-06-27] MEDS: MELATONIN 5 MG TABLET PO SCH (21:06)
[2023-06-28 06:56] LABS: GLUCOMETER DEV NAME(LOC) 3EX.2; GLUCOSE,POINT OF CARE 184 MG/DL (70-110)
[2023-06-28] MEDS: NICOTINE POLACRILEX 4 MG LOZENGE PO PRN ×3 (07:04→20:43)
[2023-06-28] MEDS: VARENICLINE TARTRATE 1 MG TABLET PO SCH ×2 (07:05→18:12)
[2023-06-28] MEDS: MetFORMIN HCL 500 MG TABLET PO SCH ×2 (07:05→18:12)
[2023-06-28] MEDS: INSULIN LISPRO 100 UNITS/ML SQ PRN ×4 (07:16→20:54)
[2023-06-28] MEDS: CloZAPine 100 MG TABLET PO SCH ×4 (08:17→20:43)
[2023-06-28] MEDS: TOPIRAMATE 100 MG TABLET PO SCH ×3 (08:17→16:25)
[2023-06-28] MEDS: LevETIRAcetam 500 MG TABLET PO SCH ×4 (08:17→20:43)
[2023-06-28] MEDS: DIVALPROEX SODIUM 500 MG ER TABLET PO SCH ×3 (08:17→16:25)
[2023-06-28] MEDS: OMEGA-3/DHA/EPA/FISH OIL 1,000 MG CAPSULE PO SCH (08:17)
[2023-06-28] MEDS: LOPERAMIDE HCL 2 MG CAPSULE PO SCH ×3 (08:21→16:25)
[2023-06-28 08:37] VITALS: BP 107/78; PULSE 80; RESP 19; TEMP 97.2
[2023-06-28 11:26] LABS: GLUCOMETER DEV NAME(LOC) 3EX.2; GLUCOSE,POINT OF CARE 262 MG/DL (70-110)
[2023-06-28 12:56] VITALS: BP 104/67; PULSE 75; RESP 18
[2023-06-28 16:11] LABS: GLUCOMETER DEV NAME(LOC) 3EX.2; GLUCOSE,POINT OF CARE 178 MG/DL (70-110)
[2023-06-28 16:22] VITALS: BP 109/73; PULSE 73; RESP 18
[2023-06-28] MEDS: ZOLPIDEM TARTRATE 10 MG TABLET PO PRN (20:43)
[2023-06-28] MEDS: QUEtiapine FUMARATE 100 MG TABLET PO SCH (20:44)
[2023-06-28] MEDS: MELATONIN 5 MG TABLET PO SCH (20:44)
[2023-06-28 21:11] LABS: GLUCOMETER DEV NAME(LOC) 3EX.2; GLUCOSE,POINT OF CARE 217 MG/DL (70-110)
[2023-06-28 21:38] VITALS: BP 101/63; PULSE 84; RESP 18; TEMP 98.2
[2023-06-29] MEDS: NICOTINE POLACRILEX 4 MG LOZENGE PO PRN ×4 (06:00→20:04)
[2023-06-29] MEDS: INSULIN LISPRO 100 UNITS/ML SQ PRN ×4 (06:33→21:13)
[2023-06-29] MEDS: MetFORMIN HCL 500 MG TABLET PO SCH ×2 (06:35→17:45)
[2023-06-29] MEDS: VARENICLINE TARTRATE 1 MG TABLET PO SCH ×2 (06:37→17:45)
[2023-06-29 07:16] LABS: GLUCOMETER DEV NAME(LOC) 3EX.2; GLUCOSE,POINT OF CARE 200 MG/DL (70-110)
[2023-06-29 08:17] VITALS: BP 101/70; PULSE 85; RESP 18; TEMP 97.5
[2023-06-29] MEDS: DIVALPROEX SODIUM 500 MG ER TABLET PO SCH ×3 (08:39→16:51)
[2023-06-29] MEDS: TOPIRAMATE 100 MG TABLET PO SCH ×3 (08:39→16:51)
[2023-06-29] MEDS: OMEGA-3/DHA/EPA/FISH OIL 1,000 MG CAPSULE PO SCH (08:39)
[2023-06-29] MEDS: LevETIRAcetam 500 MG TABLET PO SCH ×4 (08:39→20:28)
[2023-06-29] MEDS: CloZAPine 100 MG TABLET PO SCH ×4 (08:39→20:28)
[2023-06-29] MEDS: LOPERAMIDE HCL 2 MG CAPSULE PO SCH ×3 (08:39→16:51)
[2023-06-29 11:26] LABS: GLUCOMETER DEV NAME(LOC) 3EX.2; GLUCOSE,POINT OF CARE 199 MG/DL (70-110)
[2023-06-29 12:20] VITALS: BP 104/58; PULSE 81; RESP 18
[2023-06-29 16:51] LABS: GLUCOMETER DEV NAME(LOC) 3EX.2; GLUCOSE,POINT OF CARE 165 MG/DL (70-110)
[2023-06-29 20:26] LABS: GLUCOMETER DEV NAME(LOC) 3EX.2; GLUCOSE,POINT OF CARE 214 MG/DL (70-110)
[2023-06-29] MEDS: QUEtiapine FUMARATE 100 MG TABLET PO SCH (20:28)
[2023-06-29] MEDS: MELATONIN 5 MG TABLET PO SCH (20:28)
[2023-06-29 20:34] VITALS: BP 115/63; PULSE 86; RESP 18; TEMP 97.7
[2023-06-29] MEDS: ZOLPIDEM TARTRATE 10 MG TABLET PO PRN (21:51)
[2023-06-30] MEDS: NICOTINE POLACRILEX 4 MG LOZENGE PO PRN ×5 (05:11→20:19)
[2023-06-30 05:52] LABS: GLUCOMETER DEV NAME(LOC) 3EX.2; GLUCOSE,POINT OF CARE 177 MG/DL (70-110)
[2023-06-30] MEDS: MetFORMIN HCL 500 MG TABLET PO SCH ×2 (06:32→17:23)
[2023-06-30] MEDS: INSULIN LISPRO 100 UNITS/ML SQ PRN ×4 (06:34→21:40)
[2023-06-30] MEDS ORDERED: VARENICLINE TARTRATE 0.5 MG TABLET PO SCH ×2 (07:30→17:30)
[2023-06-30 08:44] VITALS: RESP 18
[2023-06-30] MEDS: DIVALPROEX SODIUM 500 MG ER TABLET PO SCH ×3 (09:05→17:23)
[2023-06-30] MEDS: CloZAPine 100 MG TABLET PO SCH ×4 (09:06→20:45)
[2023-06-30] MEDS: TOPIRAMATE 100 MG TABLET PO SCH ×3 (09:06→17:23)
[2023-06-30] MEDS: LOPERAMIDE HCL 2 MG CAPSULE PO SCH ×3 (09:06→17:23)
[2023-06-30] MEDS: LevETIRAcetam 500 MG TABLET PO SCH ×4 (09:06→20:46)
[2023-06-30] MEDS: OMEGA-3/DHA/EPA/FISH OIL 1,000 MG CAPSULE PO SCH (09:07)
[2023-06-30 11:51] LABS: GLUCOMETER DEV NAME(LOC) 3EX.2; GLUCOSE,POINT OF CARE 178 MG/DL (70-110)
[2023-06-30 17:11] LABS: GLUCOMETER DEV NAME(LOC) 3EX.2; GLUCOSE,POINT OF CARE 129 MG/DL (70-110)
[2023-06-30] MEDS: VARENICLINE TARTRATE 1 MG TABLET PO SCH (18:51)
[2023-06-30 20:26] VITALS: BP 120/80; PULSE 85; RESP 18; TEMP 97.7
[2023-06-30 20:31] LABS: GLUCOMETER DEV NAME(LOC) 3EX.2; GLUCOSE,POINT OF CARE 198 MG/DL (70-110)
[2023-06-30] MEDS: MELATONIN 5 MG TABLET PO SCH (20:45)
[2023-06-30] MEDS: QUEtiapine FUMARATE 100 MG TABLET PO SCH (20:45)
[2023-06-30] MEDS: ZOLPIDEM TARTRATE 10 MG TABLET PO PRN (21:28)
[2023-07-01] MEDS: NICOTINE POLACRILEX 4 MG LOZENGE PO PRN ×5 (05:12→20:23)
[2023-07-01 05:26] LABS: GLUCOMETER DEV NAME(LOC) 3EX.2; GLUCOSE,POINT OF CARE 165 MG/DL (70-110)
[2023-07-01] MEDS: VARENICLINE TARTRATE 1 MG TABLET PO SCH ×2 (06:34→16:41)
[2023-07-01] MEDS: MetFORMIN HCL 500 MG TABLET PO SCH ×2 (06:35→16:42)
[2023-07-01] MEDS: INSULIN LISPRO 100 UNITS/ML SQ PRN ×4 (06:37→20:55)
[2023-07-01 08:13] LABS: BASOPHILS % (AUTO) 2.2 % (0.0-2.0); EOSINOPHILS % (AUTO) 3.8 % (1.0-6.0); HEMATOCRIT 43.3 % (41-53); HEMOGLOBIN 14.4 g/dL (13.5-17.5); LYMPHOCYTES # (AUTO) 2.3 K/uL (1.0-4.8); MEAN CORPUSCULAR HEMOGLOBIN 29.3 pg (26.0-34.0); MEAN CORPUSCULAR HGB CONC 33.1 G/dL (31.0-37.0); MEAN CORPUSCULAR VOLUME 88 fL (80-100); MONOCYTES # (AUTO) 0.4 K/uL (0.1-1.0); MONOCYTES % (AUTO) 6.9 % (2.0-9.0); NEUTROPHILS # (AUTO) 2.7 K/uL (1.8-7.7); NEUTROPHILS % (AUTO) 47.1 % (40.0-70.0); PLATELET COUNT (AUTO) 290 K/uL (150-450); RED CELL DISTRIBUTION WIDTH 15.4 % (11.5-14.5); WHITE BLOOD COUNT (AUTO) 5.8 K/uL (4.5-11.0)
[2023-07-01] MEDS: TOPIRAMATE 100 MG TABLET PO SCH ×3 (08:28→16:41)
[2023-07-01] MEDS: OMEGA-3/DHA/EPA/FISH OIL 1,000 MG CAPSULE PO SCH (08:28)
[2023-07-01] MEDS: CloZAPine 100 MG TABLET PO SCH ×4 (08:28→20:38)
[2023-07-01] MEDS: LevETIRAcetam 500 MG TABLET PO SCH ×4 (08:28→20:38)
[2023-07-01] MEDS: DIVALPROEX SODIUM 500 MG ER TABLET PO SCH ×3 (08:28→16:42)
[2023-07-01] MEDS: LOPERAMIDE HCL 2 MG CAPSULE PO SCH ×3 (08:29→16:41)
[2023-07-01 09:06] VITALS: BP 99/69; PULSE 77; RESP 16; TEMP 97.9
[2023-07-01 12:17] LABS: GLUCOMETER DEV NAME(LOC) 3EX.2; GLUCOSE,POINT OF CARE 344 MG/DL (70-110)
[2023-07-01 17:26] LABS: GLUCOMETER DEV NAME(LOC) 3EX.2; GLUCOSE,POINT OF CARE 148 MG/DL (70-110)
[2023-07-01 20:36] LABS: GLUCOMETER DEV NAME(LOC) 3EX.2; GLUCOSE,POINT OF CARE 164 MG/DL (70-110)
[2023-07-01] MEDS: MELATONIN 5 MG TABLET PO SCH (20:38)
[2023-07-01] MEDS: QUEtiapine FUMARATE 100 MG TABLET PO SCH (20:38)
[2023-07-01 20:42] VITALS: BP 115/76; PULSE 74; RESP 18; TEMP 97.8
[2023-07-01 20:44] VITALS: RESP 18
[2023-07-01] MEDS: ZOLPIDEM TARTRATE 10 MG TABLET PO PRN (21:16)
[2023-07-02] MEDS: NICOTINE POLACRILEX 4 MG LOZENGE PO PRN ×5 (05:15→21:09)
[2023-07-02 05:31] LABS: GLUCOMETER DEV NAME(LOC) 3EX.2; GLUCOSE,POINT OF CARE 154 MG/DL (70-110)
[2023-07-02] MEDS: MetFORMIN HCL 500 MG TABLET PO SCH ×2 (06:36→17:45)
[2023-07-02] MEDS: VARENICLINE TARTRATE 1 MG TABLET PO SCH ×2 (06:36→17:44)
[2023-07-02] MEDS: INSULIN LISPRO 100 UNITS/ML SQ PRN ×4 (06:38→21:39)
[2023-07-02] MEDS: OMEGA-3/DHA/EPA/FISH OIL 1,000 MG CAPSULE PO SCH (09:00)
[2023-07-02] MEDS: TOPIRAMATE 100 MG TABLET PO SCH ×3 (09:01→17:44)
[2023-07-02] MEDS: LOPERAMIDE HCL 2 MG CAPSULE PO SCH ×3 (09:01→17:45)
[2023-07-02] MEDS: CloZAPine 100 MG TABLET PO SCH ×4 (09:01→21:08)
[2023-07-02] MEDS: DIVALPROEX SODIUM 500 MG ER TABLET PO SCH ×3 (09:01→17:45)
[2023-07-02] MEDS: LevETIRAcetam 500 MG TABLET PO SCH ×4 (09:01→21:06)
[2023-07-02 10:40] VITALS: RESP 18
[2023-07-02 11:56] LABS: GLUCOMETER DEV NAME(LOC) 3EX.2; GLUCOSE,POINT OF CARE 169 MG/DL (70-110)
[2023-07-02 17:21] LABS: GLUCOMETER DEV NAME(LOC) 3EX.2; GLUCOSE,POINT OF CARE 198 MG/DL (70-110)
[2023-07-02 20:19] VITALS: RESP 18
[2023-07-02] MEDS: MELATONIN 5 MG TABLET PO SCH (21:06)
[2023-07-02] MEDS: QUEtiapine FUMARATE 100 MG TABLET PO SCH (21:07)
[2023-07-02 21:21] LABS: GLUCOMETER DEV NAME(LOC) 3EX.2; GLUCOSE,POINT OF CARE 120 MG/DL (70-110)
[2023-07-02] MEDS: ZOLPIDEM TARTRATE 10 MG TABLET PO PRN (21:34)
[2023-07-03] MEDS: INSULIN LISPRO 100 UNITS/ML SQ PRN ×3 (06:48→21:10)
[2023-07-03] MEDS: VARENICLINE TARTRATE 1 MG TABLET PO SCH ×2 (06:49→17:18)
[2023-07-03] MEDS: MetFORMIN HCL 500 MG TABLET PO SCH ×2 (06:49→17:18)
[2023-07-03 06:56] LABS: GLUCOMETER DEV NAME(LOC) 3EX.2; GLUCOSE,POINT OF CARE 211 MG/DL (70-110)
[2023-07-03 08:10] VITALS: RESP 18
[2023-07-03] MEDS: LOPERAMIDE HCL 2 MG CAPSULE PO SCH ×3 (08:43→17:18)
[2023-07-03] MEDS: OMEGA-3/DHA/EPA/FISH OIL 1,000 MG CAPSULE PO SCH (08:43)
[2023-07-03] MEDS: TOPIRAMATE 100 MG TABLET PO SCH ×3 (08:43→17:18)
[2023-07-03] MEDS: DIVALPROEX SODIUM 500 MG ER TABLET PO SCH ×3 (08:43→17:19)
[2023-07-03] MEDS: CloZAPine 100 MG TABLET PO SCH ×4 (08:43→21:14)
[2023-07-03] MEDS: LevETIRAcetam 500 MG TABLET PO SCH ×4 (08:43→21:14)
[2023-07-03] MEDS: NICOTINE POLACRILEX 4 MG LOZENGE PO PRN ×4 (11:25→21:15)
[2023-07-03 11:36] LABS: GLUCOMETER DEV NAME(LOC) 3EX.2; GLUCOSE,POINT OF CARE 99 MG/DL (70-110)
[2023-07-03 17:26] LABS: GLUCOMETER DEV NAME(LOC) 3EX.2; GLUCOSE,POINT OF CARE 224 MG/DL (70-110)
[2023-07-03 21:11] LABS: GLUCOMETER DEV NAME(LOC) 3EX.2; GLUCOSE,POINT OF CARE 60 MG/DL (70-110)
[2023-07-03] MEDS: QUEtiapine FUMARATE 100 MG TABLET PO SCH (21:14)
[2023-07-03] MEDS: MELATONIN 5 MG TABLET PO SCH (21:14)
[2023-07-03 21:36] LABS: GLUCOMETER DEV NAME(LOC) 3EX.2; GLUCOSE,POINT OF CARE 100 MG/DL (70-110)
[2023-07-03 22:43] VITALS: RESP 18
[2023-07-04 06:01] LABS: GLUCOMETER DEV NAME(LOC) 3EX.2; GLUCOSE,POINT OF CARE 182 MG/DL (70-110)
[2023-07-04] MEDS: MetFORMIN HCL 500 MG TABLET PO SCH ×2 (06:48→17:41)
[2023-07-04] MEDS: VARENICLINE TARTRATE 1 MG TABLET PO SCH ×2 (06:48→17:41)
[2023-07-04] MEDS: INSULIN LISPRO 100 UNITS/ML SQ PRN ×4 (06:49→21:10)
[2023-07-04 09:07] VITALS: BP_SYST 94; BP_SYST 99; BP_DIAS 64; PULSE 68; RESP 18; TEMP 97.6
[2023-07-04 09:37] VITALS: BP 101/69; PULSE 71; RESP 20
[2023-07-04] MEDS: LevETIRAcetam 500 MG TABLET PO SCH ×4 (09:40→20:37)
[2023-07-04] MEDS: CloZAPine 100 MG TABLET PO SCH ×4 (09:40→20:37)
[2023-07-04] MEDS: NICOTINE POLACRILEX 4 MG LOZENGE PO PRN ×4 (09:40→20:15)
[2023-07-04] MEDS: DIVALPROEX SODIUM 500 MG ER TABLET PO SCH ×3 (09:40→17:08)
[2023-07-04] MEDS: TOPIRAMATE 100 MG TABLET PO SCH ×3 (09:40→17:08)
[2023-07-04] MEDS: LOPERAMIDE HCL 2 MG CAPSULE PO SCH ×3 (09:40→17:08)
[2023-07-04] MEDS: OMEGA-3/DHA/EPA/FISH OIL 1,000 MG CAPSULE PO SCH (09:40)
[2023-07-04 11:16] LABS: GLUCOMETER DEV NAME(LOC) 3EX.2; GLUCOSE,POINT OF CARE 143 MG/DL (70-110)
[2023-07-04 12:07] LABS: CLOZAPINE & NORCLOZAPINE 208 ng/mL; NORCLOZAPINE 64 ng/mL (Not Estab.)
[2023-07-04 16:41] LABS: GLUCOMETER DEV NAME(LOC) 3EX.2; GLUCOSE,POINT OF CARE 168 MG/DL (70-110)
[2023-07-04] MEDS: MELATONIN 5 MG TABLET PO SCH (20:37)
[2023-07-04] MEDS: QUEtiapine FUMARATE 100 MG TABLET PO SCH (20:37)
[2023-07-04 20:59] VITALS: RESP 18; TEMP 97.2
[2023-07-04 21:01] LABS: GLUCOMETER DEV NAME(LOC) 3EX.2; GLUCOSE,POINT OF CARE 225 MG/DL (70-110)
[2023-07-04] MEDS: ZOLPIDEM TARTRATE 10 MG TABLET PO PRN (21:37)
[2023-07-05] MEDS: NICOTINE POLACRILEX 4 MG LOZENGE PO PRN ×5 (04:45→21:55)
[2023-07-05 06:07] LABS: GLUCOMETER DEV NAME(LOC) 3EX.2; GLUCOSE,POINT OF CARE 163 MG/DL (70-110)
[2023-07-05] MEDS: MetFORMIN HCL 500 MG TABLET PO SCH ×2 (06:37→17:21)
[2023-07-05] MEDS: VARENICLINE TARTRATE 1 MG TABLET PO SCH ×2 (06:37→17:20)
[2023-07-05 08:02] VITALS: RESP 18
[2023-07-05] MEDS: CloZAPine 100 MG TABLET PO SCH ×4 (08:40→20:41)
[2023-07-05] MEDS: OMEGA-3/DHA/EPA/FISH OIL 1,000 MG CAPSULE PO SCH (08:41)
[2023-07-05] MEDS: DIVALPROEX SODIUM 500 MG ER TABLET PO SCH ×3 (08:41→17:20)
[2023-07-05] MEDS: LevETIRAcetam 500 MG TABLET PO SCH ×4 (08:41→20:41)
[2023-07-05] MEDS: LOPERAMIDE HCL 2 MG CAPSULE PO SCH ×3 (08:41→17:20)
[2023-07-05] MEDS: TOPIRAMATE 100 MG TABLET PO SCH ×3 (08:41→17:20)
[2023-07-05 11:51] LABS: GLUCOMETER DEV NAME(LOC) 3EX.2; GLUCOSE,POINT OF CARE 199 MG/DL (70-110)
[2023-07-05] MEDS: INSULIN LISPRO 100 UNITS/ML SQ PRN ×2 (12:20→21:12)
[2023-07-05 16:41] LABS: GLUCOMETER DEV NAME(LOC) 3EX.2; GLUCOSE,POINT OF CARE 86 MG/DL (70-110)
[2023-07-05] MEDS: QUEtiapine FUMARATE 100 MG TABLET PO SCH (20:41)
[2023-07-05] MEDS: MELATONIN 5 MG TABLET PO SCH (20:41)
[2023-07-05 20:56] LABS: GLUCOMETER DEV NAME(LOC) 3EX.2; GLUCOSE,POINT OF CARE 269 MG/DL (70-110)
[2023-07-05 21:23] VITALS: BP 106/68; PULSE 70; RESP 18; TEMP 97.4
[2023-07-05] MEDS: ZOLPIDEM TARTRATE 10 MG TABLET PO PRN (21:54)
[2023-07-06] MEDS: NICOTINE POLACRILEX 4 MG LOZENGE PO PRN ×5 (04:51→19:55)
[2023-07-06 06:31] LABS: GLUCOMETER DEV NAME(LOC) 3EX.2; GLUCOSE,POINT OF CARE 132 MG/DL (70-110)
[2023-07-06] MEDS: INSULIN LISPRO 100 UNITS/ML SQ PRN ×4 (06:42→21:18)
[2023-07-06] MEDS: MetFORMIN HCL 500 MG TABLET PO SCH ×2 (06:42→17:46)
[2023-07-06] MEDS: VARENICLINE TARTRATE 1 MG TABLET PO SCH ×2 (06:42→17:45)
[2023-07-06 08:30] VITALS: BP 110/69; PULSE 83; RESP 18; TEMP 98.1
[2023-07-06] MEDS: OMEGA-3/DHA/EPA/FISH OIL 1,000 MG CAPSULE PO SCH (08:31)
[2023-07-06] MEDS: TOPIRAMATE 100 MG TABLET PO SCH ×3 (08:31→17:44)
[2023-07-06] MEDS: LOPERAMIDE HCL 2 MG CAPSULE PO SCH ×3 (08:31→17:44)
[2023-07-06] MEDS: LevETIRAcetam 500 MG TABLET PO SCH ×4 (08:31→20:36)
[2023-07-06] MEDS: DIVALPROEX SODIUM 500 MG ER TABLET PO SCH ×3 (08:31→17:44)
[2023-07-06] MEDS: CloZAPine 100 MG TABLET PO SCH ×4 (08:31→20:36)
[2023-07-06 11:51] LABS: GLUCOMETER DEV NAME(LOC) 3EX.2; GLUCOSE,POINT OF CARE 156 MG/DL (70-110)
[2023-07-06 17:01] LABS: GLUCOMETER DEV NAME(LOC) 3EX.2; GLUCOSE,POINT OF CARE 120 MG/DL (70-110)
[2023-07-06 20:31] LABS: GLUCOMETER DEV NAME(LOC) 3EX.2; GLUCOSE,POINT OF CARE 174 MG/DL (70-110)
[2023-07-06] MEDS: QUEtiapine FUMARATE 100 MG TABLET PO SCH (20:36)
[2023-07-06] MEDS: MELATONIN 5 MG TABLET PO SCH (20:36)
[2023-07-06 20:45] VITALS: BP 114/63; PULSE 85; RESP 18; TEMP 97.9
[2023-07-06] MEDS: ZOLPIDEM TARTRATE 10 MG TABLET PO PRN (21:18)
[2023-07-07] MEDS: NICOTINE POLACRILEX 4 MG LOZENGE PO PRN ×3 (05:10→16:27)
[2023-07-07 05:36] LABS: GLUCOMETER DEV NAME(LOC) 3EX.2; GLUCOSE,POINT OF CARE 123 MG/DL (70-110)
[2023-07-07] MEDS: VARENICLINE TARTRATE 1 MG TABLET PO SCH ×2 (06:37→17:29)
[2023-07-07] MEDS: MetFORMIN HCL 500 MG TABLET PO SCH ×2 (06:37→17:28)
[2023-07-07] MEDS: INSULIN LISPRO 100 UNITS/ML SQ PRN ×4 (06:38→21:26)
[2023-07-07 08:31] VITALS: BP 110/75; PULSE 101; RESP 18; TEMP 97.7
[2023-07-07] MEDS: DIVALPROEX SODIUM 500 MG ER TABLET PO SCH ×3 (08:51→17:28)
[2023-07-07] MEDS: LOPERAMIDE HCL 2 MG CAPSULE PO SCH ×3 (08:51→17:28)
[2023-07-07] MEDS: LevETIRAcetam 500 MG TABLET PO SCH ×4 (08:51→20:30)
[2023-07-07] MEDS: TOPIRAMATE 100 MG TABLET PO SCH ×3 (08:51→17:28)
[2023-07-07] MEDS: CloZAPine 100 MG TABLET PO SCH ×4 (08:51→20:30)
[2023-07-07] MEDS: OMEGA-3/DHA/EPA/FISH OIL 1,000 MG CAPSULE PO SCH (08:51)
[2023-07-07 11:26] LABS: GLUCOMETER DEV NAME(LOC) 3EX.2; GLUCOSE,POINT OF CARE 155 MG/DL (70-110)
[2023-07-07 16:20] LABS: GLUCOMETER DEV NAME(LOC) 3EX.2; GLUCOSE,POINT OF CARE 139 MG/DL (70-110)
[2023-07-07] MEDS: MELATONIN 5 MG TABLET PO SCH (20:31)
[2023-07-07] MEDS: QUEtiapine FUMARATE 100 MG TABLET PO SCH (20:31)
[2023-07-07 20:35] VITALS: RESP 18
[2023-07-07 20:50] LABS: GLUCOMETER DEV NAME(LOC) 3EX.2; GLUCOSE,POINT OF CARE 100 MG/DL (70-110)
[2023-07-08] MEDS: MetFORMIN HCL 500 MG TABLET PO SCH ×2 (06:45→17:41)
[2023-07-08] MEDS: NICOTINE POLACRILEX 4 MG LOZENGE PO PRN ×5 (06:45→21:45)
[2023-07-08] MEDS: VARENICLINE TARTRATE 1 MG TABLET PO SCH ×2 (06:45→17:41)
[2023-07-08 06:46] LABS: GLUCOMETER DEV NAME(LOC) 3EX.2; GLUCOSE,POINT OF CARE 154 MG/DL (70-110)
[2023-07-08] MEDS: INSULIN LISPRO 100 UNITS/ML SQ PRN ×3 (06:54→21:39)
[2023-07-08 08:17] VITALS: BP 90/64; PULSE 93; RESP 17; TEMP 97.6
[2023-07-08] MEDS: LevETIRAcetam 500 MG TABLET PO SCH ×4 (08:49→20:53)
[2023-07-08] MEDS: CloZAPine 100 MG TABLET PO SCH ×4 (08:49→20:52)
[2023-07-08] MEDS: DIVALPROEX SODIUM 500 MG ER TABLET PO SCH ×3 (08:49→17:07)
[2023-07-08] MEDS: OMEGA-3/DHA/EPA/FISH OIL 1,000 MG CAPSULE PO SCH (08:49)
[2023-07-08] MEDS: LOPERAMIDE HCL 2 MG CAPSULE PO SCH ×3 (08:49→17:07)
[2023-07-08] MEDS: TOPIRAMATE 100 MG TABLET PO SCH ×3 (08:49→17:07)
[2023-07-08 11:11] LABS: GLUCOMETER DEV NAME(LOC) 3EX.2; GLUCOSE,POINT OF CARE 236 MG/DL (70-110)
[2023-07-08 13:22] LABS: BASOPHILS % (AUTO) 0.5 % (0.0-2.0); EOSINOPHILS % (AUTO) 0.7 % (1.0-6.0); HEMATOCRIT 41.8 % (41-53); HEMOGLOBIN 13.3 g/dL (13.5-17.5); LYMPHOCYTES # (AUTO) 1.6 K/uL (1.0-4.8); LYMPHOCYTES % (AUTO) 19.3 % (22.0-44.0); MEAN CORPUSCULAR HEMOGLOBIN 28.3 pg (26.0-34.0); MEAN CORPUSCULAR HGB CONC 31.9 G/dL (31.0-37.0); MEAN CORPUSCULAR VOLUME 89 fL (80-100); MONOCYTES # (AUTO) 0.4 K/uL (0.1-1.0); MONOCYTES % (AUTO) 4.9 % (2.0-9.0); NEUTROPHILS # (AUTO) 6.3 K/uL (1.8-7.7); NEUTROPHILS % (AUTO) 74.6 % (40.0-70.0); PLATELET COUNT (AUTO) 252 K/uL (150-450); RED BLOOD CELL COUNT(AUTO) 4.71 MIL/uL (4.50-5.90); RED CELL DISTRIBUTION WIDTH 15.4 % (11.5-14.5); WHITE BLOOD COUNT (AUTO) 8.4 K/uL (4.5-11.0)
[2023-07-08 16:56] LABS: GLUCOMETER DEV NAME(LOC) 3EX.2; GLUCOSE,POINT OF CARE 96 MG/DL (70-110)
[2023-07-08 20:31] LABS: GLUCOMETER DEV NAME(LOC) 3EX.2; GLUCOSE,POINT OF CARE 232 MG/DL (70-110)
[2023-07-08] MEDS: MELATONIN 5 MG TABLET PO SCH (20:52)
[2023-07-08 21:11] VITALS: RESP 18
[2023-07-08] MEDS: ZOLPIDEM TARTRATE 10 MG TABLET PO PRN (21:45)
[2023-07-09] MEDS: NICOTINE POLACRILEX 4 MG LOZENGE PO PRN ×7 (05:24→23:45)
[2023-07-09 05:36] LABS: GLUCOMETER DEV NAME(LOC) 3EX.2; GLUCOSE,POINT OF CARE 128 MG/DL (70-110)
[2023-07-09] MEDS: VARENICLINE TARTRATE 1 MG TABLET PO SCH ×2 (06:33→17:34)
[2023-07-09] MEDS: MetFORMIN HCL 500 MG TABLET PO SCH ×2 (06:33→17:34)
[2023-07-09] MEDS: INSULIN LISPRO 100 UNITS/ML SQ PRN ×2 (06:37→17:33)
[2023-07-09 08:00] VITALS: BP 98/62; PULSE 78; RESP 18; TEMP 98
[2023-07-09] MEDS: DIVALPROEX SODIUM 500 MG ER TABLET PO SCH ×3 (09:14→17:34)
[2023-07-09] MEDS: TOPIRAMATE 100 MG TABLET PO SCH ×3 (09:14→17:35)
[2023-07-09] MEDS: CloZAPine 100 MG TABLET PO SCH ×4 (09:14→20:58)
[2023-07-09] MEDS: OMEGA-3/DHA/EPA/FISH OIL 1,000 MG CAPSULE PO SCH (09:14)
[2023-07-09] MEDS: LevETIRAcetam 500 MG TABLET PO SCH ×4 (09:14→20:58)
[2023-07-09] MEDS: LOPERAMIDE HCL 2 MG CAPSULE PO SCH ×3 (09:15→17:34)
[2023-07-09 11:21] LABS: GLUCOMETER DEV NAME(LOC) 3EX.2; GLUCOSE,POINT OF CARE 219 MG/DL (70-110)
[2023-07-09 16:51] LABS: GLUCOMETER DEV NAME(LOC) 3EX.2; GLUCOSE,POINT OF CARE 153 MG/DL (70-110)
[2023-07-09 16:51] LABS: GLUCOMETER DEV NAME(LOC) 3EX.2; GLUCOSE,POINT OF CARE 178 MG/DL (70-110)
[2023-07-09 20:16] VITALS: BP 100/70; PULSE 76; RESP 18; TEMP 98
[2023-07-09] MEDS: MELATONIN 5 MG TABLET PO SCH (20:58)
[2023-07-09 21:21] LABS: GLUCOMETER DEV NAME(LOC) 3EX.2; GLUCOSE,POINT OF CARE 114 MG/DL (70-110)
[2023-07-09] MEDS: ZOLPIDEM TARTRATE 10 MG TABLET PO PRN (22:03)
[2023-07-10] MEDS: NICOTINE POLACRILEX 4 MG LOZENGE PO PRN ×6 (04:57→20:55)
[2023-07-10 05:46] LABS: GLUCOMETER DEV NAME(LOC) 3EX.2; GLUCOSE,POINT OF CARE 135 MG/DL (70-110)
[2023-07-10] MEDS: MetFORMIN HCL 500 MG TABLET PO SCH ×2 (06:35→17:42)
[2023-07-10] MEDS: VARENICLINE TARTRATE 1 MG TABLET PO SCH ×2 (06:37→17:43)
[2023-07-10 08:00] VITALS: BP 131/73; PULSE 71; RESP 17; TEMP 98
[2023-07-10] MEDS: LevETIRAcetam 500 MG TABLET PO SCH ×4 (10:38→20:24)
[2023-07-10] MEDS: CloZAPine 100 MG TABLET PO SCH ×4 (10:38→20:24)
[2023-07-10] MEDS: TOPIRAMATE 100 MG TABLET PO SCH ×3 (10:38→18:13)
[2023-07-10] MEDS: DIVALPROEX SODIUM 500 MG ER TABLET PO SCH ×3 (10:38→18:14)
[2023-07-10] MEDS: LOPERAMIDE HCL 2 MG CAPSULE PO SCH ×2 (10:38→14:49)
[2023-07-10] MEDS: OMEGA-3/DHA/EPA/FISH OIL 1,000 MG CAPSULE PO SCH (10:39)
[2023-07-10 11:11] LABS: GLUCOMETER DEV NAME(LOC) 3EX.2; GLUCOSE,POINT OF CARE 251 MG/DL (70-110)
[2023-07-10] MEDS: INSULIN LISPRO 100 UNITS/ML SQ PRN ×3 (12:38→21:08)
[2023-07-10] MEDS ORDERED: BISACODYL 10 MG RECTAL RECTAL SUPPOSITORY PR PRN (16:45)
[2023-07-10 17:11] LABS: GLUCOMETER DEV NAME(LOC) 3EX.2; GLUCOSE,POINT OF CARE 146 MG/DL (70-110)
[2023-07-10] MEDS: DOCUSATE SODIUM 250 MG CAPSULE PO SCH (18:14)
[2023-07-10] MEDS: MELATONIN 5 MG TABLET PO SCH (20:24)
[2023-07-10 20:50] VITALS: BP 124/77; PULSE 71; RESP 18; TEMP 98.1
[2023-07-10 21:11] LABS: GLUCOMETER DEV NAME(LOC) 3EX.2; GLUCOSE,POINT OF CARE 126 MG/DL (70-110)
[2023-07-10] MEDS: ZOLPIDEM TARTRATE 10 MG TABLET PO PRN (21:15)
[2023-07-11] MEDS: NICOTINE POLACRILEX 4 MG LOZENGE PO PRN ×4 (04:30→21:19)
[2023-07-11 05:56] LABS: GLUCOMETER DEV NAME(LOC) 3EX.2; GLUCOSE,POINT OF CARE 154 MG/DL (70-110)
[2023-07-11] MEDS: VARENICLINE TARTRATE 1 MG TABLET PO SCH ×2 (06:36→18:00)
[2023-07-11] MEDS: MetFORMIN HCL 500 MG TABLET PO SCH ×2 (06:36→16:43)
[2023-07-11] MEDS: INSULIN LISPRO 100 UNITS/ML SQ PRN ×4 (06:38→21:24)
[2023-07-11] MEDS: OMEGA-3/DHA/EPA/FISH OIL 1,000 MG CAPSULE PO SCH (09:44)
[2023-07-11] MEDS: CloZAPine 100 MG TABLET PO SCH ×4 (09:44→21:13)
[2023-07-11] MEDS: DOCUSATE SODIUM 250 MG CAPSULE PO SCH ×2 (09:44→17:00)
[2023-07-11] MEDS: LevETIRAcetam 500 MG TABLET PO SCH ×4 (09:44→21:14)
[2023-07-11] MEDS: TOPIRAMATE 100 MG TABLET PO SCH ×3 (09:44→16:43)
[2023-07-11] MEDS: DIVALPROEX SODIUM 500 MG ER TABLET PO SCH ×3 (09:44→16:43)
[2023-07-11 10:46] VITALS: BP 100/65; PULSE 91; RESP 18; TEMP 97.9
[2023-07-11 11:36] LABS: GLUCOMETER DEV NAME(LOC) 3EX.2; GLUCOSE,POINT OF CARE 139 MG/DL (70-110)
[2023-07-11 16:56] LABS: GLUCOMETER DEV NAME(LOC) 3EX.2; GLUCOSE,POINT OF CARE 165 MG/DL (70-110)
[2023-07-11 20:46] LABS: GLUCOMETER DEV NAME(LOC) 3EX.2; GLUCOSE,POINT OF CARE 122 MG/DL (70-110)
[2023-07-11] MEDS: MELATONIN 5 MG TABLET PO SCH (21:13)
[2023-07-11] MEDS: LOPERAMIDE HCL 2 MG CAPSULE PO SCH (21:18)
[2023-07-11] MEDS: ZOLPIDEM TARTRATE 10 MG TABLET PO PRN (21:19)
[2023-07-11 23:43] VITALS: BP 104/66; PULSE 78; RESP 18; TEMP 97.6
[2023-07-12 06:16] LABS: GLUCOMETER DEV NAME(LOC) 3EX.2; GLUCOSE,POINT OF CARE 125 MG/DL (70-110)
[2023-07-12] MEDS: MetFORMIN HCL 500 MG TABLET PO SCH ×2 (06:52→17:48)
[2023-07-12] MEDS: VARENICLINE TARTRATE 1 MG TABLET PO SCH ×2 (06:52→17:47)
[2023-07-12] MEDS: INSULIN LISPRO 100 UNITS/ML SQ PRN ×4 (06:55→21:12)
[2023-07-12 08:15] VITALS: BP 91/62; PULSE 87; RESP 18; TEMP 97.1
[2023-07-12 09:24] VITALS: BP 114/59; PULSE 89; RESP 18
[2023-07-12] MEDS: DOCUSATE SODIUM 250 MG CAPSULE PO SCH ×2 (09:27→16:20)
[2023-07-12] MEDS: TOPIRAMATE 100 MG TABLET PO SCH ×3 (09:27→16:18)
[2023-07-12] MEDS: CloZAPine 100 MG TABLET PO SCH ×4 (09:27→20:29)
[2023-07-12] MEDS: LevETIRAcetam 500 MG TABLET PO SCH ×4 (09:27→20:29)
[2023-07-12] MEDS: OMEGA-3/DHA/EPA/FISH OIL 1,000 MG CAPSULE PO SCH (09:27)
[2023-07-12] MEDS: DIVALPROEX SODIUM 500 MG ER TABLET PO SCH ×3 (09:27→16:18)
[2023-07-12] MEDS: NICOTINE POLACRILEX 4 MG LOZENGE PO PRN ×3 (11:23→19:58)
[2023-07-12 11:26] LABS: GLUCOMETER DEV NAME(LOC) 3EX.2; GLUCOSE,POINT OF CARE 230 MG/DL (70-110)
[2023-07-12 16:56] LABS: GLUCOMETER DEV NAME(LOC) 3EX.2; GLUCOSE,POINT OF CARE 125 MG/DL (70-110)
[2023-07-12 20:02] VITALS: BP 108/68; PULSE 84; RESP 18; TEMP 97.6
[2023-07-12 20:26] LABS: GLUCOMETER DEV NAME(LOC) 3EX.2; GLUCOSE,POINT OF CARE 228 MG/DL (70-110)
[2023-07-12] MEDS: MELATONIN 5 MG TABLET PO SCH (20:28)
[2023-07-12] MEDS: LOPERAMIDE HCL 2 MG CAPSULE PO SCH (20:29)
[2023-07-12] MEDS: ZOLPIDEM TARTRATE 10 MG TABLET PO PRN (22:01)
[2023-07-13] MEDS: NICOTINE POLACRILEX 4 MG LOZENGE PO PRN ×4 (05:15→20:41)
[2023-07-13 05:26] LABS: GLUCOMETER DEV NAME(LOC) 3EX.2; GLUCOSE,POINT OF CARE 144 MG/DL (70-110)
[2023-07-13] MEDS: MetFORMIN HCL 500 MG TABLET PO SCH ×2 (06:37→16:28)
[2023-07-13] MEDS: VARENICLINE TARTRATE 1 MG TABLET PO SCH ×2 (06:37→16:29)
[2023-07-13] MEDS: INSULIN LISPRO 100 UNITS/ML SQ PRN ×4 (06:39→21:11)
[2023-07-13] MEDS: TOPIRAMATE 100 MG TABLET PO SCH ×3 (09:00→16:28)
[2023-07-13] MEDS: LevETIRAcetam 500 MG TABLET PO SCH ×4 (09:00→20:36)
[2023-07-13] MEDS: OMEGA-3/DHA/EPA/FISH OIL 1,000 MG CAPSULE PO SCH (09:00)
[2023-07-13] MEDS: DIVALPROEX SODIUM 500 MG ER TABLET PO SCH ×3 (09:00→16:29)
[2023-07-13] MEDS: CloZAPine 100 MG TABLET PO SCH ×4 (09:00→20:36)
[2023-07-13] MEDS: DOCUSATE SODIUM 250 MG CAPSULE PO SCH ×2 (09:00→16:52)
[2023-07-13 10:05] VITALS: RESP 18; TEMP 98
[2023-07-13 11:46] LABS: GLUCOMETER DEV NAME(LOC) 3EX.2; GLUCOSE,POINT OF CARE 135 MG/DL (70-110)
[2023-07-13 17:26] LABS: GLUCOMETER DEV NAME(LOC) 3EX.2; GLUCOSE,POINT OF CARE 150 MG/DL (70-110)
[2023-07-13 20:36] VITALS: BP 122/70; PULSE 68; RESP 17; TEMP 98
[2023-07-13] MEDS: LOPERAMIDE HCL 2 MG CAPSULE PO SCH (20:36)
[2023-07-13] MEDS: MELATONIN 5 MG TABLET PO SCH (20:36)
[2023-07-13] MEDS: ZOLPIDEM TARTRATE 10 MG TABLET PO PRN (20:45)
[2023-07-13 21:26] LABS: GLUCOMETER DEV NAME(LOC) 3EX.2; GLUCOSE,POINT OF CARE 91 MG/DL (70-110)
[2023-07-14] MEDS: VARENICLINE TARTRATE 1 MG TABLET PO SCH ×2 (06:57→16:40)
[2023-07-14] MEDS: NICOTINE POLACRILEX 4 MG LOZENGE PO PRN ×4 (06:57→19:55)
[2023-07-14] MEDS: INSULIN LISPRO 100 UNITS/ML SQ PRN ×3 (06:59→21:52)
[2023-07-14] MEDS: MetFORMIN HCL 500 MG TABLET PO SCH ×2 (07:06→16:40)
[2023-07-14 07:31] LABS: GLUCOMETER DEV NAME(LOC) 3EX.2; GLUCOSE,POINT OF CARE 128 MG/DL (70-110)
[2023-07-14 08:02] VITALS: RESP 18
[2023-07-14] MEDS: TOPIRAMATE 100 MG TABLET PO SCH ×3 (08:05→16:40)
[2023-07-14] MEDS: OMEGA-3/DHA/EPA/FISH OIL 1,000 MG CAPSULE PO SCH (08:05)
[2023-07-14] MEDS: DOCUSATE SODIUM 250 MG CAPSULE PO SCH ×2 (08:05→16:40)
[2023-07-14] MEDS: DIVALPROEX SODIUM 500 MG ER TABLET PO SCH ×3 (08:05→16:40)
[2023-07-14] MEDS: CloZAPine 100 MG TABLET PO SCH ×4 (08:05→20:13)
[2023-07-14] MEDS: LevETIRAcetam 500 MG TABLET PO SCH ×4 (08:05→20:13)
[2023-07-14 11:16] LABS: GLUCOMETER DEV NAME(LOC) 3EX.2; GLUCOSE,POINT OF CARE 156 MG/DL (70-110)
[2023-07-14 17:01] LABS: GLUCOMETER DEV NAME(LOC) 3EX.2; GLUCOSE,POINT OF CARE 103 MG/DL (70-110)
[2023-07-14] MEDS: MELATONIN 5 MG TABLET PO SCH (20:13)
[2023-07-14] MEDS: LOPERAMIDE HCL 2 MG CAPSULE PO SCH (20:13)
[2023-07-14 20:21] LABS: GLUCOMETER DEV NAME(LOC) 3E.C; GLUCOSE,POINT OF CARE 170 MG/DL (70-110)
[2023-07-14 20:49] VITALS: BP 119/63; PULSE 70; RESP 18; TEMP 97.8
[2023-07-14] MEDS ORDERED: LOPERAMIDE HCL 2 MG CAPSULE PO SCH (21:00)
[2023-07-14] MEDS: GLYCOPYRROLATE 1 MG TABLET PO SCH (21:25)
[2023-07-14] MEDS: ZOLPIDEM TARTRATE 10 MG TABLET PO PRN (21:26)
[2023-07-15] MEDS: NICOTINE POLACRILEX 4 MG LOZENGE PO PRN ×4 (05:26→17:41)
[2023-07-15 05:36] LABS: GLUCOMETER DEV NAME(LOC) 3E.C; GLUCOSE,POINT OF CARE 114 MG/DL (70-110)
[2023-07-15] MEDS: VARENICLINE TARTRATE 1 MG TABLET PO SCH ×2 (06:35→17:37)
[2023-07-15] MEDS: MetFORMIN HCL 500 MG TABLET PO SCH ×2 (06:35→17:30)
[2023-07-15] MEDS: LOPERAMIDE HCL 2 MG/15 ML SUSPENSION UDCUP PO SCH ×4 (08:59→20:40)
[2023-07-15] MEDS: TOPIRAMATE 100 MG TABLET PO SCH ×3 (09:00→17:37)
[2023-07-15] MEDS: LevETIRAcetam 500 MG TABLET PO SCH ×4 (09:00→20:39)
[2023-07-15] MEDS: DIVALPROEX SODIUM 500 MG ER TABLET PO SCH ×3 (09:00→17:37)
[2023-07-15] MEDS: DOCUSATE SODIUM 250 MG CAPSULE PO SCH ×2 (09:00→17:00)
[2023-07-15] MEDS: CloZAPine 100 MG TABLET PO SCH ×4 (09:00→20:39)
[2023-07-15 09:38] LABS: BASOPHILS % (AUTO) 0.4 % (0.0-2.0); EOSINOPHILS % (AUTO) 1.1 % (1.0-6.0); HEMATOCRIT 40.4 % (41-53); HEMOGLOBIN 13.2 g/dL (13.5-17.5); LYMPHOCYTES # (AUTO) 1.5 K/uL (1.0-4.8); LYMPHOCYTES % (AUTO) 24.5 % (22.0-44.0); MEAN CORPUSCULAR HEMOGLOBIN 28.8 pg (26.0-34.0); MEAN CORPUSCULAR HGB CONC 32.7 G/dL (31.0-37.0); MEAN CORPUSCULAR VOLUME 88 fL (80-100); MONOCYTES # (AUTO) 0.3 K/uL (0.1-1.0); MONOCYTES % (AUTO) 5.3 % (2.0-9.0); NEUTROPHILS # (AUTO) 4.3 K/uL (1.8-7.7); NEUTROPHILS % (AUTO) 68.7 % (40.0-70.0); PLATELET COUNT (AUTO) 260 K/uL (150-450); RED BLOOD CELL COUNT(AUTO) 4.59 MIL/uL (4.50-5.90); RED CELL DISTRIBUTION WIDTH 15.3 % (11.5-14.5); WHITE BLOOD COUNT (AUTO) 6.2 K/uL (4.5-11.0)
[2023-07-15 09:57] VITALS: BP 101/70; PULSE 84; RESP 17; TEMP 97.8
[2023-07-15] MEDS: OMEGA-3/DHA/EPA/FISH OIL 1,000 MG CAPSULE PO SCH (10:12)
[2023-07-15 11:36] LABS: GLUCOMETER DEV NAME(LOC) 3E.I 2; GLUCOSE,POINT OF CARE 209 MG/DL (70-110)
[2023-07-15] MEDS: INSULIN LISPRO 100 UNITS/ML SQ PRN ×2 (12:02→21:45)
[2023-07-15 17:37] LABS: GLUCOMETER DEV NAME(LOC) 3E.I 2; GLUCOSE,POINT OF CARE 84 MG/DL (70-110)
[2023-07-15 20:31] LABS: GLUCOMETER DEV NAME(LOC) 3E.C; GLUCOSE,POINT OF CARE 246 MG/DL (70-110)
[2023-07-15] MEDS: GLYCOPYRROLATE 1 MG TABLET PO SCH (20:37)
[2023-07-15] MEDS: MELATONIN 5 MG TABLET PO SCH (20:39)
[2023-07-15 21:52] VITALS: BP 99/66; PULSE 92; RESP 18; TEMP 97.7
[2023-07-16 06:25] LABS: GLUCOMETER DEV NAME(LOC) 3E.C; GLUCOSE,POINT OF CARE 148 MG/DL (70-110)
[2023-07-16] MEDS: INSULIN LISPRO 100 UNITS/ML SQ PRN ×4 (06:36→21:01)
[2023-07-16] MEDS: VARENICLINE TARTRATE 1 MG TABLET PO SCH ×2 (06:50→17:00)
[2023-07-16] MEDS: MetFORMIN HCL 500 MG TABLET PO SCH ×2 (06:50→17:00)
[2023-07-16 09:13] VITALS: BP 104/53; PULSE 73; RESP 18; TEMP 97.8
[2023-07-16] MEDS: TOPIRAMATE 100 MG TABLET PO SCH ×3 (09:13→17:00)
[2023-07-16] MEDS: CloZAPine 100 MG TABLET PO SCH ×4 (09:13→20:30)
[2023-07-16] MEDS: LevETIRAcetam 500 MG TABLET PO SCH ×4 (09:13→20:30)
[2023-07-16] MEDS: DOCUSATE SODIUM 250 MG CAPSULE PO SCH ×2 (09:13→16:59)
[2023-07-16] MEDS: OMEGA-3/DHA/EPA/FISH OIL 1,000 MG CAPSULE PO SCH (09:13)
[2023-07-16] MEDS: DIVALPROEX SODIUM 500 MG ER TABLET PO SCH ×3 (09:13→16:59)
[2023-07-16] MEDS: LOPERAMIDE HCL 2 MG/15 ML SUSPENSION UDCUP PO SCH ×4 (09:18→20:30)
[2023-07-16] MEDS: NICOTINE POLACRILEX 4 MG LOZENGE PO PRN ×4 (10:14→21:11)
[2023-07-16 11:57] LABS: GLUCOMETER DEV NAME(LOC) 3E.I 2; GLUCOSE,POINT OF CARE 138 MG/DL (70-110)
[2023-07-16 12:07] LABS: CLOZAPINE & NORCLOZAPINE 444 ng/mL; NORCLOZAPINE 91 ng/mL (Not Estab.)
[2023-07-16 17:11] LABS: GLUCOMETER DEV NAME(LOC) 3E.I 2; GLUCOSE,POINT OF CARE 195 MG/DL (70-110)
[2023-07-16] MEDS: GLYCOPYRROLATE 1 MG TABLET PO SCH (20:30)
[2023-07-16] MEDS: MELATONIN 5 MG TABLET PO SCH (20:30)
[2023-07-16 20:51] VITALS: RESP 18; TEMP 98.5
[2023-07-16 21:01] LABS: GLUCOMETER DEV NAME(LOC) 3E.C; GLUCOSE,POINT OF CARE 182 MG/DL (70-110)
[2023-07-16] MEDS: TAMSULOSIN HCL 0.4 MG CAPSULE PO SCH (21:09)
[2023-07-16] MEDS: ZOLPIDEM TARTRATE 10 MG TABLET PO PRN (21:11)
[2023-07-17] MEDS: NICOTINE POLACRILEX 4 MG LOZENGE PO PRN ×4 (04:30→20:59)
[2023-07-17 05:56] LABS: GLUCOMETER DEV NAME(LOC) 3E.C; GLUCOSE,POINT OF CARE 166 MG/DL (70-110)
[2023-07-17] MEDS: MetFORMIN HCL 500 MG TABLET PO SCH ×2 (06:39→17:02)
[2023-07-17] MEDS: VARENICLINE TARTRATE 1 MG TABLET PO SCH ×2 (06:39→16:47)
[2023-07-17] MEDS: INSULIN LISPRO 100 UNITS/ML SQ PRN ×4 (06:52→21:09)
[2023-07-17 08:00] VITALS: BP 109/82; PULSE 83; RESP 18; TEMP 97.7
[2023-07-17] MEDS: LevETIRAcetam 500 MG TABLET PO SCH ×4 (09:00→20:15)
[2023-07-17] MEDS: DIVALPROEX SODIUM 500 MG ER TABLET PO SCH ×3 (09:00→16:47)
[2023-07-17] MEDS: OMEGA-3/DHA/EPA/FISH OIL 1,000 MG CAPSULE PO SCH (09:00)
[2023-07-17] MEDS: LOPERAMIDE HCL 2 MG/15 ML SUSPENSION UDCUP PO SCH ×4 (09:00→20:15)
[2023-07-17] MEDS: TOPIRAMATE 100 MG TABLET PO SCH ×3 (09:00→16:47)
[2023-07-17] MEDS: CloZAPine 100 MG TABLET PO SCH ×4 (09:00→20:15)
[2023-07-17] MEDS: DOCUSATE SODIUM 250 MG CAPSULE PO SCH ×2 (09:00→16:48)
[2023-07-17 11:36] LABS: GLUCOMETER DEV NAME(LOC) 3E.I 2; GLUCOSE,POINT OF CARE 182 MG/DL (70-110)
[2023-07-17 16:56] LABS: GLUCOMETER DEV NAME(LOC) 3E.I 2; GLUCOSE,POINT OF CARE 223 MG/DL (70-110)
[2023-07-17 20:12] VITALS: BP 100/62; PULSE 84; RESP 18; TEMP 97.2
[2023-07-17] MEDS: MELATONIN 5 MG TABLET PO SCH (20:15)
[2023-07-17] MEDS: TAMSULOSIN HCL 0.4 MG CAPSULE PO SCH (20:15)
[2023-07-17 20:56] LABS: GLUCOMETER DEV NAME(LOC) 3E.C; GLUCOSE,POINT OF CARE 240 MG/DL (70-110)
[2023-07-17] MEDS: GLYCOPYRROLATE 1 MG TABLET PO SCH (20:59)
[2023-07-17] MEDS: ZOLPIDEM TARTRATE 10 MG TABLET PO PRN (20:59)
[2023-07-18] MEDS: NICOTINE POLACRILEX 4 MG LOZENGE PO PRN ×7 (04:45→20:21)
[2023-07-18 05:41] LABS: GLUCOMETER DEV NAME(LOC) 3E.C; GLUCOSE,POINT OF CARE 196 MG/DL (70-110)
[2023-07-18] MEDS: VARENICLINE TARTRATE 1 MG TABLET PO SCH ×2 (06:57→16:14)
[2023-07-18] MEDS: MetFORMIN HCL 500 MG TABLET PO SCH ×2 (06:57→16:14)
[2023-07-18] MEDS: INSULIN LISPRO 100 UNITS/ML SQ PRN ×4 (07:00→21:34)
[2023-07-18] MEDS: TOPIRAMATE 100 MG TABLET PO SCH ×3 (08:37→16:14)
[2023-07-18] MEDS: CloZAPine 100 MG TABLET PO SCH ×4 (08:37→20:26)
[2023-07-18] MEDS: LevETIRAcetam 500 MG TABLET PO SCH ×4 (08:37→20:27)
[2023-07-18] MEDS: DIVALPROEX SODIUM 500 MG ER TABLET PO SCH ×3 (08:38→16:14)
[2023-07-18] MEDS: LOPERAMIDE HCL 2 MG CAPSULE PO PRN (08:39)
[2023-07-18] MEDS: LOPERAMIDE HCL 2 MG/15 ML SUSPENSION UDCUP PO SCH ×4 (08:40→20:26)
[2023-07-18] MEDS: DOCUSATE SODIUM 250 MG CAPSULE PO SCH ×2 (08:40→16:14)
[2023-07-18] MEDS: OMEGA-3/DHA/EPA/FISH OIL 1,000 MG CAPSULE PO SCH (08:40)
[2023-07-18 11:41] LABS: GLUCOMETER DEV NAME(LOC) 3E.C; GLUCOSE,POINT OF CARE 183 MG/DL (70-110)
[2023-07-18 16:22] VITALS: BP 110/64; PULSE 78; RESP 18; TEMP 96.9
[2023-07-18 17:36] LABS: GLUCOMETER DEV NAME(LOC) 3E.C; GLUCOSE,POINT OF CARE 243 MG/DL (70-110)
[2023-07-18 20:21] LABS: GLUCOMETER DEV NAME(LOC) 3E.C; GLUCOSE,POINT OF CARE 140 MG/DL (70-110)
[2023-07-18] MEDS: TAMSULOSIN HCL 0.4 MG CAPSULE PO SCH (20:26)
[2023-07-18] MEDS: GLYCOPYRROLATE 1 MG TABLET PO SCH (20:27)
[2023-07-18] MEDS: MELATONIN 5 MG TABLET PO SCH (20:28)
[2023-07-18 20:57] VITALS: BP 132/83; PULSE 92; RESP 20; TEMP 98.4
[2023-07-18] MEDS: ZOLPIDEM TARTRATE 10 MG TABLET PO PRN (21:33)
[2023-07-19] MEDS: NICOTINE POLACRILEX 4 MG LOZENGE PO PRN ×4 (05:11→21:13)
[2023-07-19 05:21] LABS: GLUCOMETER DEV NAME(LOC) 3E.C; GLUCOSE,POINT OF CARE 197 MG/DL (70-110)
[2023-07-19] MEDS: VARENICLINE TARTRATE 1 MG TABLET PO SCH ×2 (06:36→17:23)
[2023-07-19] MEDS: INSULIN LISPRO 100 UNITS/ML SQ PRN ×4 (06:37→21:04)
[2023-07-19] MEDS: MetFORMIN HCL 500 MG TABLET PO SCH ×2 (06:37→17:23)
[2023-07-19] MEDS: DOCUSATE SODIUM 250 MG CAPSULE PO SCH ×2 (09:00→16:33)
[2023-07-19] MEDS: LOPERAMIDE HCL 2 MG/15 ML SUSPENSION UDCUP PO SCH ×4 (09:13→20:10)
[2023-07-19] MEDS: TOPIRAMATE 100 MG TABLET PO SCH ×3 (09:13→16:34)
[2023-07-19] MEDS: LevETIRAcetam 500 MG TABLET PO SCH ×4 (09:14→20:10)
[2023-07-19] MEDS: CloZAPine 100 MG TABLET PO SCH ×4 (09:14→20:10)
[2023-07-19] MEDS: DIVALPROEX SODIUM 500 MG ER TABLET PO SCH ×3 (09:14→16:33)
[2023-07-19] MEDS: OMEGA-3/DHA/EPA/FISH OIL 1,000 MG CAPSULE PO SCH (09:18)
[2023-07-19 11:25] LABS: GLUCOMETER DEV NAME(LOC) 3E.I 2; GLUCOSE,POINT OF CARE 224 MG/DL (70-110)
[2023-07-19 12:29] VITALS: BP 114/75; PULSE 78; RESP 18; TEMP 97.8
[2023-07-19 16:16] LABS: GLUCOMETER DEV NAME(LOC) 3E.I 2; GLUCOSE,POINT OF CARE 177 MG/DL (70-110)
[2023-07-19] MEDS: GLYCOPYRROLATE 1 MG TABLET PO SCH (20:10)
[2023-07-19] MEDS: TAMSULOSIN HCL 0.4 MG CAPSULE PO SCH (20:10)
[2023-07-19] MEDS: MELATONIN 5 MG TABLET PO SCH (20:10)
[2023-07-19 20:35] VITALS: BP 119/77; PULSE 82; RESP 18; TEMP 97.7
[2023-07-19 21:11] LABS: GLUCOMETER DEV NAME(LOC) 3E.C; GLUCOSE,POINT OF CARE 153 MG/DL (70-110)
[2023-07-19] MEDS: ZOLPIDEM TARTRATE 10 MG TABLET PO PRN (21:13)
[2023-07-20] MEDS: NICOTINE POLACRILEX 4 MG LOZENGE PO PRN ×7 (02:14→20:48)
[2023-07-20 06:11] LABS: GLUCOMETER DEV NAME(LOC) 3E.C; GLUCOSE,POINT OF CARE 180 MG/DL (70-110)
[2023-07-20] MEDS: VARENICLINE TARTRATE 1 MG TABLET PO SCH ×2 (06:46→17:09)
[2023-07-20] MEDS: MetFORMIN HCL 500 MG TABLET PO SCH ×2 (06:46→17:09)
[2023-07-20] MEDS: INSULIN LISPRO 100 UNITS/ML SQ PRN ×4 (06:47→21:35)
[2023-07-20 08:00] VITALS: BP 91/56; PULSE 78; RESP 18; TEMP 97.8
[2023-07-20] MEDS: DOCUSATE SODIUM 250 MG CAPSULE PO SCH ×2 (09:00→17:00)
[2023-07-20] MEDS: LOPERAMIDE HCL 2 MG/15 ML SUSPENSION UDCUP PO SCH ×4 (09:00→20:48)
[2023-07-20] MEDS: DIVALPROEX SODIUM 500 MG ER TABLET PO SCH ×3 (10:04→17:09)
[2023-07-20] MEDS: LevETIRAcetam 500 MG TABLET PO SCH ×4 (10:04→20:47)
[2023-07-20] MEDS: CloZAPine 100 MG TABLET PO SCH ×4 (10:04→20:46)
[2023-07-20] MEDS: TOPIRAMATE 100 MG TABLET PO SCH ×3 (10:04→17:09)
[2023-07-20] MEDS: OMEGA-3/DHA/EPA/FISH OIL 1,000 MG CAPSULE PO SCH (10:11)
[2023-07-20 11:56] LABS: GLUCOMETER DEV NAME(LOC) 3E.I 2; GLUCOSE,POINT OF CARE 164 MG/DL (70-110)
[2023-07-20 17:35] LABS: GLUCOMETER DEV NAME(LOC) 3E.I 2; GLUCOSE,POINT OF CARE 257 MG/DL (70-110)
[2023-07-20 20:30] VITALS: BP 102/71; PULSE 62; RESP 18; TEMP 97.1
[2023-07-20] MEDS: MELATONIN 5 MG TABLET PO SCH (20:47)
[2023-07-20] MEDS: TAMSULOSIN HCL 0.4 MG CAPSULE PO SCH (20:47)
[2023-07-20] MEDS: GLYCOPYRROLATE 1 MG TABLET PO SCH (20:48)
[2023-07-20 21:55] LABS: GLUCOMETER DEV NAME(LOC) 3E.C; GLUCOSE,POINT OF CARE 104 MG/DL (70-110)
[2023-07-21] MEDS: NICOTINE POLACRILEX 4 MG LOZENGE PO PRN ×4 (00:36→20:42)
[2023-07-21] MEDS: MetFORMIN HCL 500 MG TABLET PO SCH ×2 (06:32→17:32)
[2023-07-21] MEDS: VARENICLINE TARTRATE 1 MG TABLET PO SCH ×2 (06:32→17:33)
[2023-07-21] MEDS: INSULIN LISPRO 100 UNITS/ML SQ PRN ×4 (06:34→21:39)
[2023-07-21 07:16] LABS: GLUCOMETER DEV NAME(LOC) 3E.C; GLUCOSE,POINT OF CARE 160 MG/DL (70-110)
[2023-07-21 08:45] VITALS: BP 90/63; PULSE 82; RESP 18; TEMP 97.2
[2023-07-21] MEDS: DIVALPROEX SODIUM 500 MG ER TABLET PO SCH ×3 (08:56→17:32)
[2023-07-21] MEDS: TOPIRAMATE 100 MG TABLET PO SCH ×3 (08:57→17:33)
[2023-07-21] MEDS: CloZAPine 100 MG TABLET PO SCH ×4 (08:57→20:45)
[2023-07-21] MEDS: LevETIRAcetam 500 MG TABLET PO SCH ×4 (08:58→20:44)
[2023-07-21] MEDS: OMEGA-3/DHA/EPA/FISH OIL 1,000 MG CAPSULE PO SCH (08:58)
[2023-07-21] MEDS: LOPERAMIDE HCL 2 MG/15 ML SUSPENSION UDCUP PO SCH ×4 (09:00→20:42)
[2023-07-21] MEDS: DOCUSATE SODIUM 250 MG CAPSULE PO SCH ×2 (09:00→17:00)
[2023-07-21 11:36] LABS: GLUCOMETER DEV NAME(LOC) 3E.C; GLUCOSE,POINT OF CARE 242 MG/DL (70-110)
[2023-07-21 13:06] LABS: CLOZAPINE & NORCLOZAPINE 383 ng/mL; NORCLOZAPINE 87 ng/mL (Not Estab.)
[2023-07-21 16:46] LABS: GLUCOMETER DEV NAME(LOC) 3E.C; GLUCOSE,POINT OF CARE 170 MG/DL (70-110)
[2023-07-21] MEDS: TAMSULOSIN HCL 0.4 MG CAPSULE PO SCH (20:44)
[2023-07-21] MEDS: MELATONIN 5 MG TABLET PO SCH (20:44)
[2023-07-21] MEDS: GLYCOPYRROLATE 1 MG TABLET PO SCH (20:44)
[2023-07-21 21:00] VITALS: BP 116/70; PULSE 87; RESP 18; TEMP 97.6
[2023-07-21 22:11] LABS: GLUCOMETER DEV NAME(LOC) 3E.C; GLUCOSE,POINT OF CARE 358 MG/DL (70-110)
[2023-07-22 05:41] LABS: GLUCOMETER DEV NAME(LOC) 3E.C; GLUCOSE,POINT OF CARE 174 MG/DL (70-110)
[2023-07-22] MEDS: MetFORMIN HCL 500 MG TABLET PO SCH ×2 (06:43→17:44)
[2023-07-22] MEDS: VARENICLINE TARTRATE 1 MG TABLET PO SCH ×2 (06:43→17:44)
[2023-07-22] MEDS: NICOTINE POLACRILEX 4 MG LOZENGE PO PRN ×4 (06:43→20:47)
[2023-07-22] MEDS: INSULIN LISPRO 100 UNITS/ML SQ PRN ×4 (06:48→21:32)
[2023-07-22] MEDS: OMEGA-3/DHA/EPA/FISH OIL 1,000 MG CAPSULE PO SCH (08:20)
[2023-07-22] MEDS: LevETIRAcetam 500 MG TABLET PO SCH ×4 (08:20→20:56)
[2023-07-22] MEDS: DIVALPROEX SODIUM 500 MG ER TABLET PO SCH ×3 (08:20→16:54)
[2023-07-22] MEDS: CloZAPine 100 MG TABLET PO SCH ×4 (08:20→20:56)
[2023-07-22] MEDS: DOCUSATE SODIUM 250 MG CAPSULE PO SCH ×2 (08:21→16:54)
[2023-07-22] MEDS: LOPERAMIDE HCL 2 MG/15 ML SUSPENSION UDCUP PO SCH ×4 (08:21→20:56)
[2023-07-22] MEDS: TOPIRAMATE 100 MG TABLET PO SCH ×3 (08:21→16:54)
[2023-07-22 11:51] LABS: GLUCOMETER DEV NAME(LOC) 3E.I 2; GLUCOSE,POINT OF CARE 167 MG/DL (70-110)
[2023-07-22 13:41] LABS: BASOPHILS % (AUTO) 1.4 % (0.0-2.0); EOSINOPHILS % (AUTO) 1.2 % (1.0-6.0); HEMATOCRIT 42.9 % (41-53); LYMPHOCYTES # (AUTO) 1.8 K/uL (1.0-4.8); LYMPHOCYTES % (AUTO) 28.2 % (22.0-44.0); MEAN CORPUSCULAR HEMOGLOBIN 29.2 pg (26.0-34.0); MEAN CORPUSCULAR HGB CONC 32.8 G/dL (31.0-37.0); MEAN CORPUSCULAR VOLUME 89 fL (80-100); MONOCYTES # (AUTO) 0.4 K/uL (0.1-1.0); MONOCYTES % (AUTO) 6.4 % (2.0-9.0); NEUTROPHILS # (AUTO) 4.1 K/uL (1.8-7.7); NEUTROPHILS % (AUTO) 62.8 % (40.0-70.0); PLATELET COUNT (AUTO) 307 K/uL (150-450); RED BLOOD CELL COUNT(AUTO) 4.81 MIL/uL (4.50-5.90); RED CELL DISTRIBUTION WIDTH 15.3 % (11.5-14.5); WHITE BLOOD COUNT (AUTO) 6.5 K/uL (4.5-11.0)
[2023-07-22 17:26] LABS: GLUCOMETER DEV NAME(LOC) 3E.I 2; GLUCOSE,POINT OF CARE 131 MG/DL (70-110)
[2023-07-22 18:04] VITALS: BP 115/76; PULSE 75; RESP 18; TEMP 97.4
[2023-07-22 20:00] VITALS: BP 130/70; PULSE 96; RESP 18; TEMP 97.4
[2023-07-22] MEDS: MELATONIN 5 MG TABLET PO SCH (20:56)
[2023-07-22] MEDS: TAMSULOSIN HCL 0.4 MG CAPSULE PO SCH (20:56)
[2023-07-22] MEDS: GLYCOPYRROLATE 1 MG TABLET PO SCH (20:57)
[2023-07-22 21:16] LABS: GLUCOMETER DEV NAME(LOC) 3E.C; GLUCOSE,POINT OF CARE 245 MG/DL (70-110)
[2023-07-23 05:52] LABS: GLUCOMETER DEV NAME(LOC) 3E.C; GLUCOSE,POINT OF CARE 150 MG/DL (70-110)
[2023-07-23] MEDS: NICOTINE POLACRILEX 4 MG LOZENGE PO PRN ×5 (06:45→20:48)
[2023-07-23] MEDS: VARENICLINE TARTRATE 1 MG TABLET PO SCH ×2 (06:58→16:59)
[2023-07-23] MEDS: MetFORMIN HCL 500 MG TABLET PO SCH ×2 (06:58→16:58)
[2023-07-23] MEDS: INSULIN LISPRO 100 UNITS/ML SQ PRN ×4 (07:05→21:17)
[2023-07-23] MEDS: LevETIRAcetam 500 MG TABLET PO SCH ×4 (08:29→20:46)
[2023-07-23] MEDS: OMEGA-3/DHA/EPA/FISH OIL 1,000 MG CAPSULE PO SCH (08:29)
[2023-07-23] MEDS: TOPIRAMATE 100 MG TABLET PO SCH ×3 (08:30→16:59)
[2023-07-23] MEDS: CloZAPine 100 MG TABLET PO SCH ×4 (08:30→20:46)
[2023-07-23] MEDS: DIVALPROEX SODIUM 500 MG ER TABLET PO SCH ×3 (08:30→16:58)
[2023-07-23] MEDS: LOPERAMIDE HCL 2 MG/15 ML SUSPENSION UDCUP PO SCH ×2 (09:00→13:00)
[2023-07-23] MEDS: DOCUSATE SODIUM 250 MG CAPSULE PO SCH ×2 (09:00→17:00)
[2023-07-23 10:00] VITALS: RESP 18
[2023-07-23 11:47] LABS: GLUCOMETER DEV NAME(LOC) 3E.C; GLUCOSE,POINT OF CARE 156 MG/DL (70-110)
[2023-07-23 16:47] LABS: GLUCOMETER DEV NAME(LOC) 3E.C; GLUCOSE,POINT OF CARE 173 MG/DL (70-110)
[2023-07-23] MEDS: GLYCOPYRROLATE 1 MG TABLET PO SCH (20:46)
[2023-07-23] MEDS: TAMSULOSIN HCL 0.4 MG CAPSULE PO SCH (20:46)
[2023-07-23] MEDS: MELATONIN 5 MG TABLET PO SCH (20:46)
[2023-07-23] MEDS: ZOLPIDEM TARTRATE 10 MG TABLET PO PRN (20:48)
[2023-07-23 20:51] LABS: GLUCOMETER DEV NAME(LOC) 3E.C; GLUCOSE,POINT OF CARE 228 MG/DL (70-110)
[2023-07-23 21:36] VITALS: RESP 18
[2023-07-24 05:46] LABS: GLUCOMETER DEV NAME(LOC) 3E.C; GLUCOSE,POINT OF CARE 205 MG/DL (70-110)
[2023-07-24] MEDS: VARENICLINE TARTRATE 1 MG TABLET PO SCH ×2 (07:00→17:30)
[2023-07-24] MEDS: MetFORMIN HCL 500 MG TABLET PO SCH ×2 (07:00→17:59)
[2023-07-24] MEDS: INSULIN LISPRO 100 UNITS/ML SQ PRN ×4 (07:04→21:01)
[2023-07-24] MEDS: NICOTINE POLACRILEX 4 MG LOZENGE PO PRN ×6 (07:11→21:39)
[2023-07-24 08:00] VITALS: BP 104/74; PULSE 78; RESP 17; TEMP 97.1
[2023-07-24] MEDS: DOCUSATE SODIUM 250 MG CAPSULE PO SCH ×2 (09:00→17:00)
[2023-07-24] MEDS: TOPIRAMATE 100 MG TABLET PO SCH ×3 (09:20→17:59)
[2023-07-24] MEDS: DIVALPROEX SODIUM 500 MG ER TABLET PO SCH ×3 (09:23→17:59)
[2023-07-24] MEDS: LevETIRAcetam 500 MG TABLET PO SCH ×4 (09:24→20:10)
[2023-07-24] MEDS: CloZAPine 100 MG TABLET PO SCH ×4 (09:24→20:10)
[2023-07-24] MEDS: OMEGA-3/DHA/EPA/FISH OIL 1,000 MG CAPSULE PO SCH (09:37)
[2023-07-24 11:16] LABS: GLUCOMETER DEV NAME(LOC) 3E.I 2; GLUCOSE,POINT OF CARE 137 MG/DL (70-110)
[2023-07-24 17:46] LABS: GLUCOMETER DEV NAME(LOC) 3E.I 2; GLUCOSE,POINT OF CARE 307 MG/DL (70-110)
[2023-07-24] MEDS: GLYCOPYRROLATE 1 MG TABLET PO SCH (20:10)
[2023-07-24] MEDS: MELATONIN 5 MG TABLET PO SCH (20:10)
[2023-07-24] MEDS: TAMSULOSIN HCL 0.4 MG CAPSULE PO SCH (20:10)
[2023-07-24 20:14] VITALS: BP 111/74; PULSE 87; RESP 18; TEMP 97.6
[2023-07-24 21:21] LABS: GLUCOMETER DEV NAME(LOC) 3E.C; GLUCOSE,POINT OF CARE 156 MG/DL (70-110)
[2023-07-24] MEDS: ZOLPIDEM TARTRATE 10 MG TABLET PO PRN (21:39)
[2023-07-25] MEDS: NICOTINE POLACRILEX 4 MG LOZENGE PO PRN ×5 (04:50→17:59)
[2023-07-25 06:02] LABS: GLUCOMETER DEV NAME(LOC) 3E.C; GLUCOSE,POINT OF CARE 206 MG/DL (70-110)
[2023-07-25] MEDS: VARENICLINE TARTRATE 1 MG TABLET PO SCH ×2 (06:54→17:31)
[2023-07-25] MEDS: MetFORMIN HCL 500 MG TABLET PO SCH ×2 (06:54→17:19)
[2023-07-25] MEDS: INSULIN LISPRO 100 UNITS/ML SQ PRN ×4 (06:58→21:19)
[2023-07-25] MEDS: TOPIRAMATE 100 MG TABLET PO SCH ×3 (08:11→17:19)
[2023-07-25] MEDS: DIVALPROEX SODIUM 500 MG ER TABLET PO SCH ×3 (08:11→17:19)
[2023-07-25] MEDS: CloZAPine 100 MG TABLET PO SCH ×4 (08:12→20:56)
[2023-07-25] MEDS: LevETIRAcetam 500 MG TABLET PO SCH ×4 (08:13→20:56)
[2023-07-25] MEDS: DOCUSATE SODIUM 250 MG CAPSULE PO SCH ×2 (09:00→17:00)
[2023-07-25 10:13] VITALS: BP 107/78; PULSE 81; RESP 19; TEMP 98
[2023-07-25 11:56] LABS: GLUCOMETER DEV NAME(LOC) 3E.I 2; GLUCOSE,POINT OF CARE 193 MG/DL (70-110)
[2023-07-25] MEDS: OMEGA-3/DHA/EPA/FISH OIL 1,000 MG CAPSULE PO SCH (12:53)
[2023-07-25 16:42] LABS: GLUCOMETER DEV NAME(LOC) 3E.I 2; GLUCOSE,POINT OF CARE 352 MG/DL (70-110)
[2023-07-25 20:21] LABS: GLUCOMETER DEV NAME(LOC) 3E.C; GLUCOSE,POINT OF CARE 150 MG/DL (70-110)
[2023-07-25] MEDS: GLYCOPYRROLATE 1 MG TABLET PO SCH (20:56)
[2023-07-25] MEDS: MELATONIN 5 MG TABLET PO SCH (20:56)
[2023-07-25] MEDS: TAMSULOSIN HCL 0.4 MG CAPSULE PO SCH (20:56)
[2023-07-25 21:05] VITALS: BP 92/69; PULSE 99; RESP 16; TEMP 97.1
[2023-07-26 05:47] LABS: GLUCOMETER DEV NAME(LOC) 3E.C; GLUCOSE,POINT OF CARE 209 MG/DL (70-110)
[2023-07-26] MEDS: MetFORMIN HCL 500 MG TABLET PO SCH ×2 (06:50→16:37)
[2023-07-26] MEDS: VARENICLINE TARTRATE 1 MG TABLET PO SCH ×2 (06:50→16:37)
[2023-07-26] MEDS: NICOTINE POLACRILEX 4 MG LOZENGE PO PRN ×6 (06:51→20:15)
[2023-07-26] MEDS: INSULIN LISPRO 100 UNITS/ML SQ PRN ×2 (07:04→17:33)
[2023-07-26] MEDS: LevETIRAcetam 500 MG TABLET PO SCH ×4 (08:52→20:20)
[2023-07-26] MEDS: DIVALPROEX SODIUM 500 MG ER TABLET PO SCH ×3 (08:52→16:37)
[2023-07-26] MEDS: TOPIRAMATE 100 MG TABLET PO SCH ×3 (08:52→16:37)
[2023-07-26] MEDS: DOCUSATE SODIUM 250 MG CAPSULE PO SCH ×2 (08:52→16:37)
[2023-07-26] MEDS: CloZAPine 100 MG TABLET PO SCH ×4 (08:54→20:20)
[2023-07-26] MEDS: OMEGA-3/DHA/EPA/FISH OIL 1,000 MG CAPSULE PO SCH (09:39)
[2023-07-26 12:11] LABS: GLUCOMETER DEV NAME(LOC) 3E.I 2; GLUCOSE,POINT OF CARE 221 MG/DL (70-110)
[2023-07-26 14:40] VITALS: RESP 18
[2023-07-26 17:57] LABS: GLUCOMETER DEV NAME(LOC) 3E.I 2; GLUCOSE,POINT OF CARE 256 MG/DL (70-110)
[2023-07-26] MEDS: GLYCOPYRROLATE 1 MG TABLET PO SCH (20:20)
[2023-07-26] MEDS: TAMSULOSIN HCL 0.4 MG CAPSULE PO SCH (20:20)
[2023-07-26] MEDS: MELATONIN 5 MG TABLET PO SCH (20:20)
[2023-07-26 20:51] LABS: GLUCOMETER DEV NAME(LOC) 3E.C; GLUCOSE,POINT OF CARE 115 MG/DL (70-110)
[2023-07-26] MEDS: ZOLPIDEM TARTRATE 10 MG TABLET PO PRN (22:00)
[2023-07-27] MEDS: NICOTINE POLACRILEX 4 MG LOZENGE PO PRN ×4 (04:25→21:12)
[2023-07-27 05:46] LABS: GLUCOMETER DEV NAME(LOC) 3E.C; GLUCOSE,POINT OF CARE 183 MG/DL (70-110)
[2023-07-27] MEDS: MetFORMIN HCL 500 MG TABLET PO SCH ×2 (06:45→17:32)
[2023-07-27] MEDS: VARENICLINE TARTRATE 1 MG TABLET PO SCH ×3 (06:45→17:30)
[2023-07-27] MEDS: INSULIN LISPRO 100 UNITS/ML SQ PRN ×4 (06:46→21:17)
[2023-07-27 09:03] VITALS: BP 105/77; PULSE 83; RESP 18; TEMP 97.2
[2023-07-27] MEDS: TOPIRAMATE 100 MG TABLET PO SCH ×3 (09:06→17:04)
[2023-07-27] MEDS: DOCUSATE SODIUM 250 MG CAPSULE PO SCH ×2 (09:08→17:03)
[2023-07-27] MEDS: CloZAPine 100 MG TABLET PO SCH ×4 (09:08→21:10)
[2023-07-27] MEDS: LevETIRAcetam 500 MG TABLET PO SCH ×4 (09:08→21:09)
[2023-07-27] MEDS: DIVALPROEX SODIUM 500 MG ER TABLET PO SCH ×3 (09:08→17:04)
[2023-07-27] MEDS: OMEGA-3/DHA/EPA/FISH OIL 1,000 MG CAPSULE PO SCH (09:09)
[2023-07-27 11:26] LABS: GLUCOMETER DEV NAME(LOC) 3E.I 2; GLUCOSE,POINT OF CARE 207 MG/DL (70-110)
[2023-07-27 16:11] LABS: GLUCOMETER DEV NAME(LOC) 3E.I 2; GLUCOSE,POINT OF CARE 147 MG/DL (70-110)
[2023-07-27 20:36] VITALS: BP 105/74; PULSE 87; RESP 18; TEMP 96.7
[2023-07-27] MEDS: GLYCOPYRROLATE 1 MG TABLET PO SCH (21:09)
[2023-07-27] MEDS: TAMSULOSIN HCL 0.4 MG CAPSULE PO SCH (21:09)
[2023-07-27] MEDS: MELATONIN 5 MG TABLET PO SCH (21:09)
[2023-07-27] MEDS: ZOLPIDEM TARTRATE 10 MG TABLET PO PRN (21:13)
[2023-07-27 22:41] LABS: GLUCOMETER DEV NAME(LOC) 3E.C; GLUCOSE,POINT OF CARE 201 MG/DL (70-110)
[2023-07-28] MEDS: NICOTINE POLACRILEX 4 MG LOZENGE PO PRN ×4 (06:40→18:42)
[2023-07-28] MEDS: VARENICLINE TARTRATE 1 MG TABLET PO SCH ×2 (06:40→17:37)
[2023-07-28] MEDS: MetFORMIN HCL 500 MG TABLET PO SCH ×2 (06:40→17:37)
[2023-07-28] MEDS: INSULIN LISPRO 100 UNITS/ML SQ PRN ×4 (06:53→21:50)
[2023-07-28 07:20] LABS: GLUCOMETER DEV NAME(LOC) 3E.C; GLUCOSE,POINT OF CARE 189 MG/DL (70-110)
[2023-07-28] MEDS: CloZAPine 100 MG TABLET PO SCH ×4 (08:37→20:58)
[2023-07-28] MEDS: OMEGA-3/DHA/EPA/FISH OIL 1,000 MG CAPSULE PO SCH (08:37)
[2023-07-28] MEDS: DOCUSATE SODIUM 250 MG CAPSULE PO SCH ×2 (08:37→16:31)
[2023-07-28] MEDS: LevETIRAcetam 500 MG TABLET PO SCH ×4 (08:38→20:58)
[2023-07-28] MEDS: TOPIRAMATE 100 MG TABLET PO SCH ×3 (08:38→16:32)
[2023-07-28] MEDS: DIVALPROEX SODIUM 500 MG ER TABLET PO SCH ×3 (08:38→16:32)
[2023-07-28 12:01] LABS: GLUCOMETER DEV NAME(LOC) 3E.I 2; GLUCOSE,POINT OF CARE 160 MG/DL (70-110)
[2023-07-28 16:01] VITALS: BP 99/63; PULSE 61; RESP 18; TEMP 96.7
[2023-07-28 16:51] LABS: GLUCOMETER DEV NAME(LOC) 3E.I 2; GLUCOSE,POINT OF CARE 214 MG/DL (70-110)
[2023-07-28 20:51] LABS: GLUCOMETER DEV NAME(LOC) 3E.C; GLUCOSE,POINT OF CARE 207 MG/DL (70-110)
[2023-07-28] MEDS: MELATONIN 5 MG TABLET PO SCH (20:58)
[2023-07-28] MEDS: TAMSULOSIN HCL 0.4 MG CAPSULE PO SCH (20:58)
[2023-07-28] MEDS: GLYCOPYRROLATE 1 MG TABLET PO SCH (22:00)
[2023-07-28 22:42] VITALS: BP 105/78; PULSE 66; RESP 19; TEMP 97.3
[2023-07-29 06:06] LABS: GLUCOMETER DEV NAME(LOC) 3E.C; GLUCOSE,POINT OF CARE 220 MG/DL (70-110)
[2023-07-29] MEDS: INSULIN LISPRO 100 UNITS/ML SQ PRN ×4 (06:38→21:32)
[2023-07-29] MEDS: MetFORMIN HCL 500 MG TABLET PO SCH ×2 (06:47→17:35)
[2023-07-29] MEDS: VARENICLINE TARTRATE 1 MG TABLET PO SCH ×2 (06:47→17:35)
[2023-07-29] MEDS: LevETIRAcetam 500 MG TABLET PO SCH ×4 (08:25→20:24)
[2023-07-29] MEDS: DOCUSATE SODIUM 250 MG CAPSULE PO SCH ×2 (08:25→17:04)
[2023-07-29] MEDS: NICOTINE POLACRILEX 4 MG LOZENGE PO PRN ×5 (08:25→21:44)
[2023-07-29] MEDS: CloZAPine 100 MG TABLET PO SCH ×4 (08:25→20:24)
[2023-07-29] MEDS: OMEGA-3/DHA/EPA/FISH OIL 1,000 MG CAPSULE PO SCH (08:26)
[2023-07-29] MEDS: TOPIRAMATE 100 MG TABLET PO SCH ×3 (08:26→17:04)
[2023-07-29] MEDS: DIVALPROEX SODIUM 500 MG ER TABLET PO SCH ×3 (08:26→17:04)
[2023-07-29 10:30] VITALS: RESP 18
[2023-07-29 10:53] LABS: BASOPHILS % (AUTO) 1.1 % (0.0-2.0); EOSINOPHILS % (AUTO) 1.2 % (1.0-6.0); HEMATOCRIT 41.1 % (41-53); HEMOGLOBIN 13.5 g/dL (13.5-17.5); LYMPHOCYTES # (AUTO) 1.4 K/uL (1.0-4.8); LYMPHOCYTES % (AUTO) 22.8 % (22.0-44.0); MEAN CORPUSCULAR HEMOGLOBIN 29.5 pg (26.0-34.0); MEAN CORPUSCULAR HGB CONC 32.9 G/dL (31.0-37.0); MEAN CORPUSCULAR VOLUME 89 fL (80-100); MONOCYTES # (AUTO) 0.3 K/uL (0.1-1.0); MONOCYTES % (AUTO) 5.6 % (2.0-9.0); NEUTROPHILS # (AUTO) 4.3 K/uL (1.8-7.7); NEUTROPHILS % (AUTO) 69.3 % (40.0-70.0); PLATELET COUNT (AUTO) 278 K/uL (150-450); RED CELL DISTRIBUTION WIDTH 15.3 % (11.5-14.5); WHITE BLOOD COUNT (AUTO) 6.1 K/uL (4.5-11.0)
[2023-07-29 11:26] LABS: GLUCOMETER DEV NAME(LOC) 3E.I 2; GLUCOSE,POINT OF CARE 286 MG/DL (70-110)
[2023-07-29 17:16] LABS: GLUCOMETER DEV NAME(LOC) 3E.I 2; GLUCOSE,POINT OF CARE 138 MG/DL (70-110)
[2023-07-29] MEDS: MELATONIN 5 MG TABLET PO SCH (20:24)
[2023-07-29] MEDS: TAMSULOSIN HCL 0.4 MG CAPSULE PO SCH (20:24)
[2023-07-29 20:36] LABS: GLUCOMETER DEV NAME(LOC) 3E.C; GLUCOSE,POINT OF CARE 156 MG/DL (70-110)
[2023-07-29] MEDS: GLYCOPYRROLATE 1 MG TABLET PO SCH (20:57)
[2023-07-29 22:01] VITALS: BP 107/76; PULSE 68; RESP 19; TEMP 97.4
[2023-07-29 22:02] VITALS: BP 107/76; PULSE 68; RESP 18; TEMP 97.4
[2023-07-30] MEDS: NICOTINE POLACRILEX 4 MG LOZENGE PO PRN ×5 (00:56→20:51)
[2023-07-30 06:02] LABS: GLUCOMETER DEV NAME(LOC) 3E.C; GLUCOSE,POINT OF CARE 194 MG/DL (70-110)
[2023-07-30] MEDS: INSULIN LISPRO 100 UNITS/ML SQ PRN ×4 (06:51→21:07)
[2023-07-30] MEDS: VARENICLINE TARTRATE 1 MG TABLET PO SCH ×2 (06:56→16:30)
[2023-07-30] MEDS: MetFORMIN HCL 500 MG TABLET PO SCH ×2 (06:56→16:30)
[2023-07-30] MEDS: LevETIRAcetam 500 MG TABLET PO SCH ×4 (08:35→20:32)
[2023-07-30] MEDS: OMEGA-3/DHA/EPA/FISH OIL 1,000 MG CAPSULE PO SCH (08:36)
[2023-07-30] MEDS: TOPIRAMATE 100 MG TABLET PO SCH ×3 (08:36→16:30)
[2023-07-30] MEDS: CloZAPine 100 MG TABLET PO SCH ×4 (08:36→20:32)
[2023-07-30] MEDS: DOCUSATE SODIUM 250 MG CAPSULE PO SCH ×2 (08:36→16:30)
[2023-07-30] MEDS: DIVALPROEX SODIUM 500 MG ER TABLET PO SCH ×3 (08:37→16:30)
[2023-07-30 14:16] LABS: GLUCOMETER DEV NAME(LOC) 3E.I 2; GLUCOSE,POINT OF CARE 224 MG/DL (70-110)
[2023-07-30 16:51] LABS: GLUCOMETER DEV NAME(LOC) 3E.I 2; GLUCOSE,POINT OF CARE 277 MG/DL (70-110)
[2023-07-30] MEDS: MELATONIN 5 MG TABLET PO SCH (20:32)
[2023-07-30] MEDS: TAMSULOSIN HCL 0.4 MG CAPSULE PO SCH (20:32)
[2023-07-30] MEDS: GLYCOPYRROLATE 1 MG TABLET PO SCH (20:32)
[2023-07-30 20:40] LABS: GLUCOMETER DEV NAME(LOC) 3E.C; GLUCOSE,POINT OF CARE 204 MG/DL (70-110)
[2023-07-30 21:33] VITALS: BP 105/78; PULSE 66; RESP 18; TEMP 97.5
[2023-07-31 05:51] LABS: GLUCOMETER DEV NAME(LOC) 3E.C; GLUCOSE,POINT OF CARE 185 MG/DL (70-110)
[2023-07-31] MEDS: VARENICLINE TARTRATE 1 MG TABLET PO SCH ×2 (07:00→17:13)
[2023-07-31] MEDS: MetFORMIN HCL 500 MG TABLET PO SCH ×2 (07:00→17:13)
[2023-07-31] MEDS: INSULIN LISPRO 100 UNITS/ML SQ PRN ×4 (07:03→21:05)
[2023-07-31] MEDS: NICOTINE POLACRILEX 4 MG LOZENGE PO PRN ×5 (08:03→23:15)
[2023-07-31] MEDS: TOPIRAMATE 100 MG TABLET PO SCH ×3 (08:30→16:27)
[2023-07-31] MEDS: LevETIRAcetam 500 MG TABLET PO SCH ×4 (08:32→21:02)
[2023-07-31] MEDS: DIVALPROEX SODIUM 500 MG ER TABLET PO SCH ×3 (08:32→16:28)
[2023-07-31] MEDS: CloZAPine 100 MG TABLET PO SCH ×4 (08:32→20:10)
[2023-07-31] MEDS: DOCUSATE SODIUM 250 MG CAPSULE PO SCH ×2 (08:32→16:29)
[2023-07-31] MEDS: OMEGA-3/DHA/EPA/FISH OIL 1,000 MG CAPSULE PO SCH (08:34)
[2023-07-31 09:45] VITALS: BP 108/76; PULSE 89; RESP 18; TEMP 97.8
[2023-07-31 11:41] LABS: GLUCOMETER DEV NAME(LOC) 3E.I 2; GLUCOSE,POINT OF CARE 187 MG/DL (70-110)
[2023-07-31 16:25] LABS: GLUCOMETER DEV NAME(LOC) 3E.I 2; GLUCOSE,POINT OF CARE 203 MG/DL (70-110)
[2023-07-31] MEDS: GLYCOPYRROLATE 1 MG TABLET PO SCH (20:10)
[2023-07-31] MEDS: MELATONIN 5 MG TABLET PO SCH (20:10)
[2023-07-31 20:11] VITALS: BP 105/78; PULSE 85; RESP 18; TEMP 98.3
[2023-07-31 20:41] LABS: GLUCOMETER DEV NAME(LOC) 3E.C; GLUCOSE,POINT OF CARE 265 MG/DL (70-110)
[2023-07-31] MEDS: TAMSULOSIN HCL 0.4 MG CAPSULE PO SCH (21:00)
[2023-07-31] MEDS: ZOLPIDEM TARTRATE 10 MG TABLET PO PRN (21:04)
[2023-07-31 22:51] LABS: GLUCOMETER DEV NAME(LOC) 3E.C; GLUCOSE,POINT OF CARE 204 MG/DL (70-110)
[2023-08-01] MEDS: NICOTINE POLACRILEX 4 MG LOZENGE PO PRN ×5 (03:20→20:12)
[2023-08-01 06:01] LABS: GLUCOMETER DEV NAME(LOC) 3E.C; GLUCOSE,POINT OF CARE 191 MG/DL (70-110)
[2023-08-01] MEDS: VARENICLINE TARTRATE 1 MG TABLET PO SCH ×2 (06:41→17:18)
[2023-08-01] MEDS: MetFORMIN HCL 500 MG TABLET PO SCH ×2 (06:41→17:17)
[2023-08-01] MEDS: INSULIN LISPRO 100 UNITS/ML SQ PRN ×4 (06:41→21:49)
[2023-08-01] MEDS: TOPIRAMATE 100 MG TABLET PO SCH ×3 (08:31→16:39)
[2023-08-01] MEDS: DOCUSATE SODIUM 250 MG CAPSULE PO SCH ×2 (08:31→16:38)
[2023-08-01] MEDS: LevETIRAcetam 500 MG TABLET PO SCH ×4 (08:31→20:19)
[2023-08-01] MEDS: CloZAPine 100 MG TABLET PO SCH ×4 (08:32→20:18)
[2023-08-01] MEDS: DIVALPROEX SODIUM 500 MG ER TABLET PO SCH ×3 (08:32→16:38)
[2023-08-01] MEDS: OMEGA-3/DHA/EPA/FISH OIL 1,000 MG CAPSULE PO SCH (08:36)
[2023-08-01 09:41] VITALS: BP 102/72; PULSE 91; RESP 18; TEMP 97.5
[2023-08-01 11:26] LABS: GLUCOMETER DEV NAME(LOC) 3E.I 2; GLUCOSE,POINT OF CARE 296 MG/DL (70-110)
[2023-08-01 17:01] LABS: GLUCOMETER DEV NAME(LOC) 3E.I 2; GLUCOSE,POINT OF CARE 275 MG/DL (70-110)
[2023-08-01] MEDS: TAMSULOSIN HCL 0.4 MG CAPSULE PO SCH (20:18)
[2023-08-01] MEDS: GLYCOPYRROLATE 1 MG TABLET PO SCH (20:19)
[2023-08-01] MEDS: MELATONIN 5 MG TABLET PO SCH (20:19)
[2023-08-01 20:26] LABS: GLUCOMETER DEV NAME(LOC) 3E.C; GLUCOSE,POINT OF CARE 188 MG/DL (70-110)
[2023-08-01 20:53] VITALS: BP 103/61; PULSE 99; RESP 18; TEMP 97.4
[2023-08-01] MEDS: ZOLPIDEM TARTRATE 10 MG TABLET PO PRN (21:57)
[2023-08-02] MEDS: NICOTINE POLACRILEX 4 MG LOZENGE PO PRN ×5 (05:32→21:34)
[2023-08-02 05:51] LABS: GLUCOMETER DEV NAME(LOC) 3E.C; GLUCOSE,POINT OF CARE 191 MG/DL (70-110)
[2023-08-02] MEDS: MetFORMIN HCL 500 MG TABLET PO SCH ×2 (06:38→17:51)
[2023-08-02] MEDS: VARENICLINE TARTRATE 1 MG TABLET PO SCH ×2 (06:38→16:57)
[2023-08-02] MEDS: INSULIN LISPRO 100 UNITS/ML SQ PRN ×4 (06:39→21:10)
[2023-08-02 09:21] VITALS: BP 105/75; PULSE 78; RESP 18; TEMP 97.2
[2023-08-02] MEDS: LevETIRAcetam 500 MG TABLET PO SCH ×4 (09:25→20:01)
[2023-08-02] MEDS: DIVALPROEX SODIUM 500 MG ER TABLET PO SCH ×3 (09:25→16:34)
[2023-08-02] MEDS: OMEGA-3/DHA/EPA/FISH OIL 1,000 MG CAPSULE PO SCH (09:25)
[2023-08-02] MEDS: DOCUSATE SODIUM 250 MG CAPSULE PO SCH ×2 (09:25→16:34)
[2023-08-02] MEDS: CloZAPine 100 MG TABLET PO SCH ×4 (09:25→20:01)
[2023-08-02] MEDS: TOPIRAMATE 100 MG TABLET PO SCH ×3 (09:25→16:34)
[2023-08-02 11:26] LABS: GLUCOMETER DEV NAME(LOC) 3E.I 2; GLUCOSE,POINT OF CARE 236 MG/DL (70-110)
[2023-08-02 16:41] LABS: GLUCOMETER DEV NAME(LOC) 3E.I 2; GLUCOSE,POINT OF CARE 225 MG/DL (70-110)
[2023-08-02] MEDS: MELATONIN 5 MG TABLET PO SCH (20:01)
[2023-08-02] MEDS: TAMSULOSIN HCL 0.4 MG CAPSULE PO SCH (20:01)
[2023-08-02 20:49] VITALS: BP 90/54; PULSE 86; RESP 18; TEMP 97.8
[2023-08-02 21:31] LABS: GLUCOMETER DEV NAME(LOC) 3E.C; GLUCOSE,POINT OF CARE 164 MG/DL (70-110)
[2023-08-02] MEDS: GLYCOPYRROLATE 1 MG TABLET PO SCH (21:33)
[2023-08-02] MEDS: ZOLPIDEM TARTRATE 10 MG TABLET PO PRN (21:34)
[2023-08-03] MEDS: NICOTINE POLACRILEX 4 MG LOZENGE PO PRN ×6 (04:30→20:19)
[2023-08-03 05:51] LABS: GLUCOMETER DEV NAME(LOC) 3E.C; GLUCOSE,POINT OF CARE 213 MG/DL (70-110)
[2023-08-03] MEDS: INSULIN LISPRO 100 UNITS/ML SQ PRN ×3 (06:35→17:43)
[2023-08-03] MEDS: VARENICLINE TARTRATE 1 MG TABLET PO SCH ×2 (06:39→17:14)
[2023-08-03] MEDS: MetFORMIN HCL 500 MG TABLET PO SCH ×2 (06:39→17:14)
[2023-08-03 08:51] VITALS: BP 90/56; PULSE 83; RESP 18; TEMP 97.2
[2023-08-03] MEDS: CloZAPine 100 MG TABLET PO SCH ×4 (08:58→20:28)
[2023-08-03] MEDS: DIVALPROEX SODIUM 500 MG ER TABLET PO SCH ×3 (08:58→16:53)
[2023-08-03] MEDS: OMEGA-3/DHA/EPA/FISH OIL 1,000 MG CAPSULE PO SCH (08:58)
[2023-08-03] MEDS: LevETIRAcetam 500 MG TABLET PO SCH ×4 (08:58→20:29)
[2023-08-03] MEDS: TOPIRAMATE 100 MG TABLET PO SCH ×3 (08:59→16:54)
[2023-08-03] MEDS: DOCUSATE SODIUM 250 MG CAPSULE PO SCH ×2 (09:00→17:00)
[2023-08-03 11:31] LABS: GLUCOMETER DEV NAME(LOC) 3E.I 2; GLUCOSE,POINT OF CARE 217 MG/DL (70-110)
[2023-08-03 17:25] LABS: GLUCOMETER DEV NAME(LOC) 3E.I 2; GLUCOSE,POINT OF CARE 261 MG/DL (70-110)
[2023-08-03 20:14] VITALS: BP 112/76; PULSE 90; RESP 19; TEMP 97.9
[2023-08-03 20:26] LABS: GLUCOMETER DEV NAME(LOC) 3E.C; GLUCOSE,POINT OF CARE 103 MG/DL (70-110)
[2023-08-03] MEDS: GLYCOPYRROLATE 1 MG TABLET PO SCH (20:28)
[2023-08-03] MEDS: MELATONIN 5 MG TABLET PO SCH (20:28)
[2023-08-03] MEDS: TAMSULOSIN HCL 0.4 MG CAPSULE PO SCH (20:59)
[2023-08-03] MEDS: ZOLPIDEM TARTRATE 10 MG TABLET PO PRN (22:37)
[2023-08-04] MEDS: NICOTINE POLACRILEX 4 MG LOZENGE PO PRN ×4 (05:28→20:14)
[2023-08-04 05:36] LABS: GLUCOMETER DEV NAME(LOC) 3E.C; GLUCOSE,POINT OF CARE 184 MG/DL (70-110)
[2023-08-04] MEDS: VARENICLINE TARTRATE 1 MG TABLET PO SCH ×2 (06:37→17:47)
[2023-08-04] MEDS: INSULIN LISPRO 100 UNITS/ML SQ PRN ×4 (06:37→21:34)
[2023-08-04] MEDS: MetFORMIN HCL 500 MG TABLET PO SCH ×2 (06:37→17:04)
[2023-08-04 09:11] VITALS: BP 100/66; PULSE 88; RESP 18; TEMP 97.5
[2023-08-04] MEDS: LevETIRAcetam 500 MG TABLET PO SCH ×4 (09:19→20:19)
[2023-08-04] MEDS: CloZAPine 100 MG TABLET PO SCH ×4 (09:19→20:19)
[2023-08-04] MEDS: DIVALPROEX SODIUM 500 MG ER TABLET PO SCH ×3 (09:19→17:03)
[2023-08-04] MEDS: DOCUSATE SODIUM 250 MG CAPSULE PO SCH ×2 (09:19→17:03)
[2023-08-04] MEDS: TOPIRAMATE 100 MG TABLET PO SCH ×3 (09:20→17:05)
[2023-08-04] MEDS: OMEGA-3/DHA/EPA/FISH OIL 1,000 MG CAPSULE PO SCH (09:51)
[2023-08-04 12:31] LABS: GLUCOMETER DEV NAME(LOC) 3E.I 2; GLUCOSE,POINT OF CARE 182 MG/DL (70-110)
[2023-08-04 16:31] LABS: GLUCOMETER DEV NAME(LOC) 3E.I 2; GLUCOSE,POINT OF CARE 212 MG/DL (70-110)
[2023-08-04] MEDS: TAMSULOSIN HCL 0.4 MG CAPSULE PO SCH (20:19)
[2023-08-04] MEDS: MELATONIN 5 MG TABLET PO SCH (20:19)
[2023-08-04] MEDS: GLYCOPYRROLATE 1 MG TABLET PO SCH (20:20)
[2023-08-04 20:26] LABS: GLUCOMETER DEV NAME(LOC) 3E.C; GLUCOSE,POINT OF CARE 157 MG/DL (70-110)
[2023-08-04] MEDS: ZOLPIDEM TARTRATE 10 MG TABLET PO PRN (21:33)
[2023-08-05] MEDS: NICOTINE POLACRILEX 4 MG LOZENGE PO PRN ×5 (04:48→21:31)
[2023-08-05 05:36] LABS: GLUCOMETER DEV NAME(LOC) 3E.C; GLUCOSE,POINT OF CARE 184 MG/DL (70-110)
[2023-08-05] MEDS: MetFORMIN HCL 500 MG TABLET PO SCH ×2 (06:35→17:46)
[2023-08-05] MEDS: VARENICLINE TARTRATE 1 MG TABLET PO SCH ×2 (06:35→17:43)
[2023-08-05] MEDS: INSULIN LISPRO 100 UNITS/ML SQ PRN ×4 (06:39→21:06)
[2023-08-05] MEDS: LevETIRAcetam 500 MG TABLET PO SCH ×4 (08:27→20:05)
[2023-08-05] MEDS: OMEGA-3/DHA/EPA/FISH OIL 1,000 MG CAPSULE PO SCH (08:28)
[2023-08-05] MEDS: DOCUSATE SODIUM 250 MG CAPSULE PO SCH ×4 (08:28→20:05)
[2023-08-05] MEDS: DIVALPROEX SODIUM 500 MG ER TABLET PO SCH ×3 (08:28→17:43)
[2023-08-05] MEDS: CloZAPine 100 MG TABLET PO SCH ×4 (08:28→20:05)
[2023-08-05] MEDS: TOPIRAMATE 100 MG TABLET PO SCH ×3 (08:29→17:44)
[2023-08-05 09:08] VITALS: BP 100/75; PULSE 92; RESP 19; TEMP 97.5
[2023-08-05 10:40] LABS: BASOPHILS % (AUTO) 0.9 % (0.0-2.0); EOSINOPHILS % (AUTO) 1.5 % (1.0-6.0); HEMOGLOBIN 12.2 g/dL (13.5-17.5); LYMPHOCYTES # (AUTO) 1.5 K/uL (1.0-4.8); LYMPHOCYTES % (AUTO) 31.8 % (22.0-44.0); MEAN CORPUSCULAR HEMOGLOBIN 29.6 pg (26.0-34.0); MEAN CORPUSCULAR VOLUME 90 fL (80-100); MONOCYTES # (AUTO) 0.4 K/uL (0.1-1.0); MONOCYTES % (AUTO) 7.7 % (2.0-9.0); NEUTROPHILS # (AUTO) 2.7 K/uL (1.8-7.7); NEUTROPHILS % (AUTO) 58.1 % (40.0-70.0); PLATELET COUNT (AUTO) 303 K/uL (150-450); RED BLOOD CELL COUNT(AUTO) 4.11 MIL/uL (4.50-5.90); RED CELL DISTRIBUTION WIDTH 15.3 % (11.5-14.5); WHITE BLOOD COUNT (AUTO) 4.7 K/uL (4.5-11.0)
[2023-08-05 11:56] LABS: GLUCOMETER DEV NAME(LOC) 3E.I 2; GLUCOSE,POINT OF CARE 213 MG/DL (70-110)
[2023-08-05 16:21] LABS: GLUCOMETER DEV NAME(LOC) 3E.I 2; GLUCOSE,POINT OF CARE 200 MG/DL (70-110)
[2023-08-05] MEDS: MELATONIN 5 MG TABLET PO SCH (20:05)
[2023-08-05] MEDS: TAMSULOSIN HCL 0.4 MG CAPSULE PO SCH (20:05)
[2023-08-05] MEDS: GLYCOPYRROLATE 1 MG TABLET PO SCH (20:05)
[2023-08-05 21:07] VITALS: BP 104/68; PULSE 81; RESP 18; TEMP 97.2
[2023-08-05 21:26] LABS: GLUCOMETER DEV NAME(LOC) 3E.C; GLUCOSE,POINT OF CARE 245 MG/DL (70-110)
[2023-08-05] MEDS: ZOLPIDEM TARTRATE 10 MG TABLET PO PRN (21:31)
[2023-08-06] MEDS: NICOTINE POLACRILEX 4 MG LOZENGE PO PRN ×6 (04:45→21:25)
[2023-08-06 05:41] LABS: GLUCOMETER DEV NAME(LOC) 3E.C; GLUCOSE,POINT OF CARE 249 MG/DL (70-110)
[2023-08-06] MEDS: INSULIN LISPRO 100 UNITS/ML SQ PRN ×4 (06:33→21:09)
[2023-08-06] MEDS: VARENICLINE TARTRATE 1 MG TABLET PO SCH ×2 (06:52→16:39)
[2023-08-06] MEDS: MetFORMIN HCL 500 MG TABLET PO SCH ×2 (06:52→16:38)
[2023-08-06] MEDS: LevETIRAcetam 500 MG TABLET PO SCH ×4 (08:22→21:25)
[2023-08-06] MEDS: CloZAPine 100 MG TABLET PO SCH ×4 (08:22→21:25)
[2023-08-06] MEDS: TOPIRAMATE 100 MG TABLET PO SCH ×3 (08:22→16:39)
[2023-08-06] MEDS: DIVALPROEX SODIUM 500 MG ER TABLET PO SCH ×3 (08:22→16:38)
[2023-08-06 09:51] VITALS: RESP 18
[2023-08-06] MEDS: OMEGA-3/DHA/EPA/FISH OIL 1,000 MG CAPSULE PO SCH (10:24)
[2023-08-06] MEDS: DOCUSATE SODIUM 250 MG CAPSULE PO SCH ×4 (10:25→21:25)
[2023-08-06 11:51] LABS: GLUCOMETER DEV NAME(LOC) 3E.I 2; GLUCOSE,POINT OF CARE 194 MG/DL (70-110)
[2023-08-06 16:21] LABS: GLUCOMETER DEV NAME(LOC) 3E.I 2; GLUCOSE,POINT OF CARE 204 MG/DL (70-110)
[2023-08-06 20:41] VITALS: BP 108/78; PULSE 86; RESP 18; TEMP 97.1
[2023-08-06 21:11] LABS: GLUCOMETER DEV NAME(LOC) 3E.C; GLUCOSE,POINT OF CARE 170 MG/DL (70-110)
[2023-08-06] MEDS: TAMSULOSIN HCL 0.4 MG CAPSULE PO SCH (21:25)
[2023-08-06] MEDS: MELATONIN 5 MG TABLET PO SCH (21:25)
[2023-08-06] MEDS: GLYCOPYRROLATE 1 MG TABLET PO SCH (21:25)
[2023-08-07] MEDS: NICOTINE POLACRILEX 4 MG LOZENGE PO PRN ×5 (05:15→21:20)
[2023-08-07] MEDS: VARENICLINE TARTRATE 1 MG TABLET PO SCH ×2 (06:35→18:08)
[2023-08-07] MEDS: MetFORMIN HCL 500 MG TABLET PO SCH ×2 (06:35→16:50)
[2023-08-07] MEDS: INSULIN LISPRO 100 UNITS/ML SQ PRN ×4 (06:41→21:03)
[2023-08-07 07:20] LABS: GLUCOMETER DEV NAME(LOC) 3E.C; GLUCOSE,POINT OF CARE 186 MG/DL (70-110)
[2023-08-07] MEDS: DOCUSATE SODIUM 250 MG CAPSULE PO SCH ×4 (09:00→20:15)
[2023-08-07] MEDS: CloZAPine 100 MG TABLET PO SCH ×4 (10:14→20:15)
[2023-08-07] MEDS: LevETIRAcetam 500 MG TABLET PO SCH ×4 (10:14→20:15)
[2023-08-07] MEDS: DIVALPROEX SODIUM 500 MG ER TABLET PO SCH ×3 (10:14→16:50)
[2023-08-07] MEDS: OMEGA-3/DHA/EPA/FISH OIL 1,000 MG CAPSULE PO SCH (10:14)
[2023-08-07] MEDS: TOPIRAMATE 100 MG TABLET PO SCH ×3 (10:15→16:51)
[2023-08-07 12:02] VITALS: RESP 18
[2023-08-07 12:06] LABS: GLUCOMETER DEV NAME(LOC) 3E.I 2; GLUCOSE,POINT OF CARE 202 MG/DL (70-110)
[2023-08-07 17:01] LABS: GLUCOMETER DEV NAME(LOC) 3E.I 2; GLUCOSE,POINT OF CARE 142 MG/DL (70-110)
[2023-08-07] MEDS: GLYCOPYRROLATE 1 MG TABLET PO SCH (20:15)
[2023-08-07] MEDS: MELATONIN 5 MG TABLET PO SCH (20:15)
[2023-08-07] MEDS: TAMSULOSIN HCL 0.4 MG CAPSULE PO SCH (20:15)
[2023-08-07 20:55] VITALS: BP 104/70; PULSE 103; RESP 17; TEMP 97.3
[2023-08-07 21:06] LABS: GLUCOMETER DEV NAME(LOC) 3E.C; GLUCOSE,POINT OF CARE 215 MG/DL (70-110)
[2023-08-07] MEDS: ZOLPIDEM TARTRATE 10 MG TABLET PO PRN (21:20)
[2023-08-08] MEDS: NICOTINE POLACRILEX 4 MG LOZENGE PO PRN ×7 (05:15→21:09)
[2023-08-08] MEDS: MetFORMIN HCL 500 MG TABLET PO SCH ×2 (06:37→16:09)
[2023-08-08] MEDS: INSULIN LISPRO 100 UNITS/ML SQ PRN ×3 (06:44→21:03)
[2023-08-08 07:01] LABS: GLUCOMETER DEV NAME(LOC) 3E.C; GLUCOSE,POINT OF CARE 195 MG/DL (70-110)
[2023-08-08 08:07] LABS: CLOZAPINE & NORCLOZAPINE 362 ng/mL; NORCLOZAPINE 89 ng/mL (Not Estab.)
[2023-08-08] MEDS: LevETIRAcetam 500 MG TABLET PO SCH ×4 (08:14→20:10)
[2023-08-08] MEDS: OMEGA-3/DHA/EPA/FISH OIL 1,000 MG CAPSULE PO SCH (08:15)
[2023-08-08] MEDS: DIVALPROEX SODIUM 500 MG ER TABLET PO SCH ×3 (08:15→16:09)
[2023-08-08] MEDS: CloZAPine 100 MG TABLET PO SCH ×4 (08:15→20:10)
[2023-08-08] MEDS: DOCUSATE SODIUM 250 MG CAPSULE PO SCH ×4 (08:15→20:10)
[2023-08-08] MEDS: TOPIRAMATE 100 MG TABLET PO SCH ×3 (08:16→16:09)
[2023-08-08 11:51] LABS: GLUCOMETER DEV NAME(LOC) 3E.C; GLUCOSE,POINT OF CARE 214 MG/DL (70-110)
[2023-08-08] MEDS: VARENICLINE TARTRATE 1 MG TABLET PO SCH (16:09)
[2023-08-08 17:16] LABS: GLUCOMETER DEV NAME(LOC) 3E.C; GLUCOSE,POINT OF CARE 106 MG/DL (70-110)
[2023-08-08] MEDS: TAMSULOSIN HCL 0.4 MG CAPSULE PO SCH (20:10)
[2023-08-08] MEDS: MELATONIN 5 MG TABLET PO SCH (20:10)
[2023-08-08 21:00] LABS: GLUCOMETER DEV NAME(LOC) 3E.C; GLUCOSE,POINT OF CARE 224 MG/DL (70-110)
[2023-08-08 21:01] VITALS: BP 102/68; PULSE 72; RESP 18; TEMP 97.6
[2023-08-08] MEDS: GLYCOPYRROLATE 1 MG TABLET PO SCH (21:08)
[2023-08-08] MEDS: ZOLPIDEM TARTRATE 10 MG TABLET PO PRN (21:09)
[2023-08-09] MEDS: NICOTINE POLACRILEX 4 MG LOZENGE PO PRN ×5 (00:52→20:43)
[2023-08-09 05:51] LABS: GLUCOMETER DEV NAME(LOC) 3E.C; GLUCOSE,POINT OF CARE 197 MG/DL (70-110)
[2023-08-09] MEDS: INSULIN LISPRO 100 UNITS/ML SQ PRN ×4 (06:40→21:38)
[2023-08-09] MEDS: MetFORMIN HCL 500 MG TABLET PO SCH ×2 (07:01→16:27)
[2023-08-09] MEDS: DIVALPROEX SODIUM 500 MG ER TABLET PO SCH ×3 (08:12→16:26)
[2023-08-09] MEDS: LevETIRAcetam 500 MG TABLET PO SCH ×4 (08:12→20:43)
[2023-08-09] MEDS: OMEGA-3/DHA/EPA/FISH OIL 1,000 MG CAPSULE PO SCH (08:12)
[2023-08-09] MEDS: DOCUSATE SODIUM 250 MG CAPSULE PO SCH ×5 (08:13→20:45)
[2023-08-09] MEDS: TOPIRAMATE 100 MG TABLET PO SCH ×3 (08:13→16:27)
[2023-08-09] MEDS: CloZAPine 100 MG TABLET PO SCH ×4 (08:13→20:44)
[2023-08-09] MEDS: BISACODYL 10 MG RECTAL RECTAL SUPPOSITORY PR SCH ×2 (08:14→09:00)
[2023-08-09 09:55] VITALS: TEMP 97.7
[2023-08-09] MEDS ORDERED: BISACODYL 10 MG RECTAL RECTAL SUPPOSITORY PR PRN (10:15)
[2023-08-09 11:56] LABS: GLUCOMETER DEV NAME(LOC) 3E.C; GLUCOSE,POINT OF CARE 261 MG/DL (70-110)
[2023-08-09] MEDS: VARENICLINE TARTRATE 1 MG TABLET PO SCH (16:26)
[2023-08-09 17:06] LABS: GLUCOMETER DEV NAME(LOC) 3E.C; GLUCOSE,POINT OF CARE 170 MG/DL (70-110)
[2023-08-09 20:25] VITALS: RESP 18
[2023-08-09] MEDS: GLYCOPYRROLATE 1 MG TABLET PO SCH (20:44)
[2023-08-09] MEDS: TAMSULOSIN HCL 0.4 MG CAPSULE PO SCH (20:45)
[2023-08-09 20:51] LABS: GLUCOMETER DEV NAME(LOC) 3E.C; GLUCOSE,POINT OF CARE 207 MG/DL (70-110)
[2023-08-09] MEDS: MELATONIN 5 MG TABLET PO SCH (21:09)
[2023-08-10 05:51] LABS: GLUCOMETER DEV NAME(LOC) 3E.C; GLUCOSE,POINT OF CARE 165 MG/DL (70-110)
[2023-08-10] MEDS: MetFORMIN HCL 500 MG TABLET PO SCH ×2 (06:53→17:39)
[2023-08-10] MEDS: INSULIN LISPRO 100 UNITS/ML SQ PRN ×4 (06:55→21:18)
[2023-08-10 08:20] VITALS: BP 89/59; PULSE 88; RESP 16; TEMP 98.4
[2023-08-10] MEDS: DOCUSATE SODIUM 250 MG CAPSULE PO SCH ×4 (09:00→20:40)
[2023-08-10] MEDS: DIVALPROEX SODIUM 500 MG ER TABLET PO SCH ×3 (09:01→17:22)
[2023-08-10] MEDS: CloZAPine 100 MG TABLET PO SCH ×4 (09:01→20:38)
[2023-08-10] MEDS: LevETIRAcetam 500 MG TABLET PO SCH ×4 (09:01→20:40)
[2023-08-10] MEDS: OMEGA-3/DHA/EPA/FISH OIL 1,000 MG CAPSULE PO SCH (09:02)
[2023-08-10] MEDS: TOPIRAMATE 100 MG TABLET PO SCH ×3 (09:02→17:22)
[2023-08-10] MEDS: NICOTINE POLACRILEX 4 MG LOZENGE PO PRN ×5 (11:02→20:39)
[2023-08-10 11:36] LABS: GLUCOMETER DEV NAME(LOC) 3E.C; GLUCOSE,POINT OF CARE 271 MG/DL (70-110)
[2023-08-10 17:01] LABS: GLUCOMETER DEV NAME(LOC) 3E.C; GLUCOSE,POINT OF CARE 175 MG/DL (70-110)
[2023-08-10] MEDS: VARENICLINE TARTRATE 1 MG TABLET PO SCH (17:23)
[2023-08-10] MEDS: ZOLPIDEM TARTRATE 10 MG TABLET PO PRN (20:38)
[2023-08-10] MEDS: TAMSULOSIN HCL 0.4 MG CAPSULE PO SCH (20:39)
[2023-08-10] MEDS: GLYCOPYRROLATE 1 MG TABLET PO SCH (20:40)
[2023-08-10] MEDS: MELATONIN 5 MG TABLET PO SCH (20:40)
[2023-08-10 20:55] VITALS: BP 116/72; PULSE 91; RESP 18; TEMP 98.3
[2023-08-10 21:41] LABS: GLUCOMETER DEV NAME(LOC) 3E.C; GLUCOSE,POINT OF CARE 154 MG/DL (70-110)
[2023-08-11] MEDS: MetFORMIN HCL 500 MG TABLET PO SCH ×2 (06:44→17:38)
[2023-08-11] MEDS: NICOTINE POLACRILEX 4 MG LOZENGE PO PRN ×5 (06:45→20:31)
[2023-08-11] MEDS: INSULIN LISPRO 100 UNITS/ML SQ PRN ×4 (06:57→21:07)
[2023-08-11 07:16] LABS: GLUCOMETER DEV NAME(LOC) 3E.C; GLUCOSE,POINT OF CARE 170 MG/DL (70-110)
[2023-08-11] MEDS: DOCUSATE SODIUM 250 MG CAPSULE PO SCH ×4 (09:00→20:34)
[2023-08-11] MEDS: CloZAPine 100 MG TABLET PO SCH ×4 (10:10→20:32)
[2023-08-11] MEDS: LevETIRAcetam 500 MG TABLET PO SCH ×4 (10:10→20:32)
[2023-08-11] MEDS: OMEGA-3/DHA/EPA/FISH OIL 1,000 MG CAPSULE PO SCH (10:11)
[2023-08-11] MEDS: TOPIRAMATE 100 MG TABLET PO SCH ×3 (10:11→17:36)
[2023-08-11] MEDS: DIVALPROEX SODIUM 500 MG ER TABLET PO SCH ×3 (10:11→17:36)
[2023-08-11 11:05] VITALS: RESP 18
[2023-08-11 11:36] LABS: GLUCOMETER DEV NAME(LOC) 3E.C; GLUCOSE,POINT OF CARE 205 MG/DL (70-110)
[2023-08-11 16:46] LABS: GLUCOMETER DEV NAME(LOC) 3E.C; GLUCOSE,POINT OF CARE 186 MG/DL (70-110)
[2023-08-11] MEDS: VARENICLINE TARTRATE 1 MG TABLET PO SCH (17:36)
[2023-08-11] MEDS: MELATONIN 5 MG TABLET PO SCH (20:33)
[2023-08-11] MEDS: TAMSULOSIN HCL 0.4 MG CAPSULE PO SCH (20:33)
[2023-08-11] MEDS: ZOLPIDEM TARTRATE 10 MG TABLET PO PRN (20:34)
[2023-08-11] MEDS: GLYCOPYRROLATE 1 MG TABLET PO SCH (20:34)
[2023-08-11 21:20] LABS: GLUCOMETER DEV NAME(LOC) 3E.C; GLUCOSE,POINT OF CARE 320 MG/DL (70-110)
[2023-08-11 22:06] VITALS: BP 118/74; PULSE 77; RESP 18; TEMP 98
[2023-08-12] MEDS: NICOTINE POLACRILEX 4 MG LOZENGE PO PRN ×6 (06:39→20:49)
[2023-08-12] MEDS: MetFORMIN HCL 500 MG TABLET PO SCH ×2 (06:39→16:03)
[2023-08-12] MEDS: INSULIN LISPRO 100 UNITS/ML SQ PRN ×4 (06:42→21:15)
[2023-08-12 07:16] LABS: GLUCOMETER DEV NAME(LOC) 3E.C; GLUCOSE,POINT OF CARE 172 MG/DL (70-110)
[2023-08-12] MEDS: DOCUSATE SODIUM 250 MG CAPSULE PO SCH ×4 (08:24→20:50)
[2023-08-12] MEDS: DIVALPROEX SODIUM 500 MG ER TABLET PO SCH ×3 (08:24→16:04)
[2023-08-12] MEDS: TOPIRAMATE 100 MG TABLET PO SCH ×3 (08:24→16:03)
[2023-08-12] MEDS: OMEGA-3/DHA/EPA/FISH OIL 1,000 MG CAPSULE PO SCH (08:24)
[2023-08-12] MEDS: LevETIRAcetam 500 MG TABLET PO SCH ×4 (08:24→20:51)
[2023-08-12] MEDS: CloZAPine 100 MG TABLET PO SCH ×4 (09:10→20:50)
[2023-08-12 09:19] VITALS: BP 99/71; PULSE 84; RESP 17; TEMP 97.5
[2023-08-12 12:16] LABS: GLUCOMETER DEV NAME(LOC) 3E.C; GLUCOSE,POINT OF CARE 275 MG/DL (70-110)
[2023-08-12 14:05] LABS: BASOPHILS % (AUTO) 0.6 % (0.0-2.0); EOSINOPHILS % (AUTO) 1.5 % (1.0-6.0); HEMOGLOBIN 13.2 g/dL (13.5-17.5); LYMPHOCYTES # (AUTO) 2.3 K/uL (1.0-4.8); LYMPHOCYTES % (AUTO) 32.8 % (22.0-44.0); MEAN CORPUSCULAR HEMOGLOBIN 29.7 pg (26.0-34.0); MEAN CORPUSCULAR VOLUME 90 fL (80-100); MONOCYTES # (AUTO) 0.5 K/uL (0.1-1.0); MONOCYTES % (AUTO) 6.5 % (2.0-9.0); NEUTROPHILS # (AUTO) 4.1 K/uL (1.8-7.7); NEUTROPHILS % (AUTO) 58.6 % (40.0-70.0); PLATELET COUNT (AUTO) 301 K/uL (150-450); RED BLOOD CELL COUNT(AUTO) 4.44 MIL/uL (4.50-5.90); RED CELL DISTRIBUTION WIDTH 15.4 % (11.5-14.5)
[2023-08-12 16:56] LABS: GLUCOMETER DEV NAME(LOC) 3E.C; GLUCOSE,POINT OF CARE 122 MG/DL (70-110)
[2023-08-12] MEDS: MELATONIN 5 MG TABLET PO SCH (20:50)
[2023-08-12] MEDS: GLYCOPYRROLATE 1 MG TABLET PO SCH (20:50)
[2023-08-12] MEDS: ZOLPIDEM TARTRATE 10 MG TABLET PO PRN (20:50)
[2023-08-12] MEDS: TAMSULOSIN HCL 0.4 MG CAPSULE PO SCH (20:50)
[2023-08-12 21:01] LABS: GLUCOMETER DEV NAME(LOC) 3E.C; GLUCOSE,POINT OF CARE 377 MG/DL (70-110)
[2023-08-12 21:20] VITALS: RESP 18
[2023-08-13] MEDS: MetFORMIN HCL 500 MG TABLET PO SCH ×2 (06:32→16:45)
[2023-08-13] MEDS: NICOTINE POLACRILEX 4 MG LOZENGE PO PRN ×7 (06:32→23:53)
[2023-08-13] MEDS: INSULIN LISPRO 100 UNITS/ML SQ PRN ×3 (06:54→21:09)
[2023-08-13 07:11] LABS: GLUCOMETER DEV NAME(LOC) 3E.C; GLUCOSE,POINT OF CARE 195 MG/DL (70-110)
[2023-08-13] MEDS: LevETIRAcetam 500 MG TABLET PO SCH ×4 (08:59→20:15)
[2023-08-13] MEDS: TOPIRAMATE 100 MG TABLET PO SCH ×3 (08:59→16:45)
[2023-08-13] MEDS: DIVALPROEX SODIUM 500 MG ER TABLET PO SCH ×3 (08:59→16:45)
[2023-08-13] MEDS: OMEGA-3/DHA/EPA/FISH OIL 1,000 MG CAPSULE PO SCH (08:59)
[2023-08-13] MEDS: CloZAPine 100 MG TABLET PO SCH ×4 (08:59→20:15)
[2023-08-13] MEDS: DOCUSATE SODIUM 250 MG CAPSULE PO SCH ×4 (09:00→21:00)
[2023-08-13 09:18] VITALS: BP 92/72; PULSE 72; RESP 18; TEMP 97.5
[2023-08-13 11:41] LABS: GLUCOMETER DEV NAME(LOC) 3E.C; GLUCOSE,POINT OF CARE 316 MG/DL (70-110)
[2023-08-13] MEDS: MAG HYDROX/ALUMINUM HYD/SIMETH ES 30 ML SUSPENSION UDCUP PO PRN (12:15)
[2023-08-13] MEDS ORDERED: BISACODYL 5 MG EC TABLET PO ONE (16:30)
[2023-08-13 17:36] LABS: GLUCOMETER DEV NAME(LOC) 3E.C; GLUCOSE,POINT OF CARE 96 MG/DL (70-110)
[2023-08-13] MEDS: MELATONIN 5 MG TABLET PO SCH (20:15)
[2023-08-13] MEDS: TAMSULOSIN HCL 0.4 MG CAPSULE PO SCH (20:15)
[2023-08-13] MEDS: GLYCOPYRROLATE 1 MG TABLET PO SCH (20:15)
[2023-08-13 20:35] LABS: GLUCOMETER DEV NAME(LOC) 3E.C; GLUCOSE,POINT OF CARE 341 MG/DL (70-110)
[2023-08-13] MEDS: SENNOSIDES 8.6 MG TABLET PO SCH (21:00)
[2023-08-13] MEDS: ZOLPIDEM TARTRATE 10 MG TABLET PO PRN (21:20)
[2023-08-13 21:32] VITALS: BP 101/69; PULSE 99; RESP 18; TEMP 98
[2023-08-14] MEDS: NICOTINE POLACRILEX 4 MG LOZENGE PO PRN ×7 (05:15→20:43)
[2023-08-14] MEDS: MetFORMIN HCL 500 MG TABLET PO SCH ×2 (06:36→18:17)
[2023-08-14] MEDS: INSULIN LISPRO 100 UNITS/ML SQ PRN ×4 (06:44→21:01)
[2023-08-14 07:06] LABS: GLUCOMETER DEV NAME(LOC) 3E.C; GLUCOSE,POINT OF CARE 215 MG/DL (70-110)
[2023-08-14 08:51] VITALS: BP 95/59; PULSE 81; RESP 17; TEMP 97.7
[2023-08-14] MEDS: TOPIRAMATE 100 MG TABLET PO SCH ×3 (09:17→18:17)
[2023-08-14] MEDS: BISACODYL 5 MG EC TABLET PO SCH (09:18)
[2023-08-14] MEDS: DOCUSATE SODIUM 250 MG CAPSULE PO SCH ×4 (09:34→20:01)
[2023-08-14] MEDS: DIVALPROEX SODIUM 500 MG ER TABLET PO SCH ×3 (09:34→18:29)
[2023-08-14] MEDS: CloZAPine 100 MG TABLET PO SCH ×4 (09:34→20:01)
[2023-08-14] MEDS: OMEGA-3/DHA/EPA/FISH OIL 1,000 MG CAPSULE PO SCH (09:34)
[2023-08-14] MEDS: LevETIRAcetam 500 MG TABLET PO SCH ×4 (09:34→20:01)
[2023-08-14 09:51] LABS: GLUCOMETER DEV NAME(LOC) 3E.C; GLUCOSE,POINT OF CARE 109 MG/DL (70-110)
[2023-08-14 12:02] LABS: GLUCOMETER DEV NAME(LOC) 3E.C; GLUCOSE,POINT OF CARE 175 MG/DL (70-110)
[2023-08-14 17:01] LABS: GLUCOMETER DEV NAME(LOC) 3E.C; GLUCOSE,POINT OF CARE 201 MG/DL (70-110)
[2023-08-14] MEDS: SENNOSIDES 8.6 MG TABLET PO SCH (20:01)
[2023-08-14] MEDS: MELATONIN 5 MG TABLET PO SCH (20:01)
[2023-08-14] MEDS: TAMSULOSIN HCL 0.4 MG CAPSULE PO SCH (20:01)
[2023-08-14] MEDS: GLYCOPYRROLATE 1 MG TABLET PO SCH (20:01)
[2023-08-14 20:41] LABS: GLUCOMETER DEV NAME(LOC) 3E.C; GLUCOSE,POINT OF CARE 148 MG/DL (70-110)
[2023-08-14] MEDS: ZOLPIDEM TARTRATE 10 MG TABLET PO PRN (20:43)
[2023-08-14 21:08] VITALS: BP 153/68; PULSE 91; RESP 18; TEMP 98
[2023-08-15 05:51] LABS: GLUCOMETER DEV NAME(LOC) 3E.C; GLUCOSE,POINT OF CARE 226 MG/DL (70-110)
[2023-08-15] MEDS: MetFORMIN HCL 500 MG TABLET PO SCH ×2 (06:34→16:52)
[2023-08-15] MEDS: INSULIN LISPRO 100 UNITS/ML SQ PRN ×4 (06:38→21:44)
[2023-08-15] MEDS: LevETIRAcetam 500 MG TABLET PO SCH ×4 (08:17→21:09)
[2023-08-15] MEDS: CloZAPine 100 MG TABLET PO SCH ×4 (08:18→21:08)
[2023-08-15] MEDS: DIVALPROEX SODIUM 500 MG ER TABLET PO SCH ×3 (08:18→16:50)
[2023-08-15] MEDS: OMEGA-3/DHA/EPA/FISH OIL 1,000 MG CAPSULE PO SCH (08:18)
[2023-08-15] MEDS: TOPIRAMATE 100 MG TABLET PO SCH ×3 (08:19→17:19)
[2023-08-15] MEDS: BISACODYL 5 MG EC TABLET PO SCH (08:19)
[2023-08-15] MEDS: DOCUSATE SODIUM 250 MG CAPSULE PO SCH ×4 (10:56→21:09)
[2023-08-15] MEDS: NICOTINE POLACRILEX 4 MG LOZENGE PO PRN ×4 (10:56→21:07)
[2023-08-15 11:46] LABS: GLUCOMETER DEV NAME(LOC) 3E.C; GLUCOSE,POINT OF CARE 167 MG/DL (70-110)
[2023-08-15 14:30] VITALS: TEMP 98
[2023-08-15 16:56] LABS: GLUCOMETER DEV NAME(LOC) 3E.C; GLUCOSE,POINT OF CARE 237 MG/DL (70-110)
[2023-08-15 20:14] VITALS: RESP 18; TEMP 98
[2023-08-15] MEDS: GLYCOPYRROLATE 1 MG TABLET PO SCH (21:08)
[2023-08-15] MEDS: SENNOSIDES 8.6 MG TABLET PO SCH (21:08)
[2023-08-15] MEDS: TAMSULOSIN HCL 0.4 MG CAPSULE PO SCH (21:09)
[2023-08-15] MEDS: MELATONIN 5 MG TABLET PO SCH (21:09)
[2023-08-15 21:31] LABS: GLUCOMETER DEV NAME(LOC) 3E.C; GLUCOSE,POINT OF CARE 152 MG/DL (70-110)
[2023-08-16 05:36] LABS: GLUCOMETER DEV NAME(LOC) 3E.C; GLUCOSE,POINT OF CARE 209 MG/DL (70-110)
[2023-08-16] MEDS: MetFORMIN HCL 500 MG TABLET PO SCH ×2 (07:05→16:14)
[2023-08-16] MEDS: INSULIN LISPRO 100 UNITS/ML SQ PRN ×4 (07:06→21:05)
[2023-08-16] MEDS: CloZAPine 100 MG TABLET PO SCH ×4 (08:26→20:00)
[2023-08-16] MEDS: LevETIRAcetam 500 MG TABLET PO SCH ×4 (08:26→21:12)
[2023-08-16] MEDS: DIVALPROEX SODIUM 500 MG ER TABLET PO SCH ×3 (08:26→16:13)
[2023-08-16] MEDS: TOPIRAMATE 100 MG TABLET PO SCH ×3 (08:26→16:13)
[2023-08-16] MEDS: OMEGA-3/DHA/EPA/FISH OIL 1,000 MG CAPSULE PO SCH (08:55)
[2023-08-16] MEDS: DOCUSATE SODIUM 250 MG CAPSULE PO SCH ×4 (08:56→20:00)
[2023-08-16] MEDS: NICOTINE POLACRILEX 4 MG LOZENGE PO PRN ×5 (09:48→21:09)
[2023-08-16 10:39] VITALS: RESP 17
[2023-08-16 11:51] LABS: GLUCOMETER DEV NAME(LOC) 3E.I 2; GLUCOSE,POINT OF CARE 160 MG/DL (70-110)
[2023-08-16 17:16] LABS: GLUCOMETER DEV NAME(LOC) 3E.I 2; GLUCOSE,POINT OF CARE 277 MG/DL (70-110)
[2023-08-16] MEDS: GLYCOPYRROLATE 1 MG TABLET PO SCH (20:00)
[2023-08-16] MEDS: MELATONIN 5 MG TABLET PO SCH (20:00)
[2023-08-16] MEDS: TAMSULOSIN HCL 0.4 MG CAPSULE PO SCH (20:00)
[2023-08-16] MEDS: SENNOSIDES 8.6 MG TABLET PO SCH (20:00)
[2023-08-16 20:30] VITALS: BP 132/79; PULSE 89; RESP 18; TEMP 97.8
[2023-08-16 20:53] LABS: GLUCOMETER DEV NAME(LOC) 3E.C; GLUCOSE,POINT OF CARE 273 MG/DL (70-110)
[2023-08-16] MEDS: ZOLPIDEM TARTRATE 10 MG TABLET PO PRN (21:09)
[2023-08-16 22:03] VITALS: RESP 18
[2023-08-17] MEDS: NICOTINE POLACRILEX 4 MG LOZENGE PO PRN ×6 (04:55→23:38)
[2023-08-17] MEDS: MetFORMIN HCL 500 MG TABLET PO SCH ×2 (06:42→18:03)
[2023-08-17] MEDS: INSULIN LISPRO 100 UNITS/ML SQ PRN ×4 (06:45→21:20)
[2023-08-17 07:12] LABS: GLUCOMETER DEV NAME(LOC) 3E.C; GLUCOSE,POINT OF CARE 213 MG/DL (70-110)
[2023-08-17] MEDS: CloZAPine 100 MG TABLET PO SCH ×4 (10:25→20:48)
[2023-08-17] MEDS: DOCUSATE SODIUM 250 MG CAPSULE PO SCH ×4 (10:25→20:49)
[2023-08-17] MEDS: DIVALPROEX SODIUM 500 MG ER TABLET PO SCH ×3 (10:25→18:03)
[2023-08-17] MEDS: OMEGA-3/DHA/EPA/FISH OIL 1,000 MG CAPSULE PO SCH (10:25)
[2023-08-17] MEDS: LevETIRAcetam 500 MG TABLET PO SCH ×4 (10:25→20:49)
[2023-08-17] MEDS: TOPIRAMATE 100 MG TABLET PO SCH ×3 (10:26→18:03)
[2023-08-17 12:07] LABS: GLUCOMETER DEV NAME(LOC) 3E.I 2; GLUCOSE,POINT OF CARE 158 MG/DL (70-110)
[2023-08-17 15:31] VITALS: RESP 18; TEMP 98
[2023-08-17 17:57] LABS: GLUCOMETER DEV NAME(LOC) 3E.I 2; GLUCOSE,POINT OF CARE 349 MG/DL (70-110)
[2023-08-17] MEDS: GLYCOPYRROLATE 1 MG TABLET PO SCH (20:48)
[2023-08-17] MEDS: MELATONIN 5 MG TABLET PO SCH (20:48)
[2023-08-17] MEDS: SENNOSIDES 8.6 MG TABLET PO SCH (20:48)
[2023-08-17] MEDS: TAMSULOSIN HCL 0.4 MG CAPSULE PO SCH (20:48)
[2023-08-17] MEDS: ZOLPIDEM TARTRATE 10 MG TABLET PO PRN (20:49)
[2023-08-17 21:10] VITALS: BP 102/62; PULSE 89; RESP 18; TEMP 97.6
[2023-08-17 21:43] LABS: GLUCOMETER DEV NAME(LOC) 3E.C; GLUCOSE,POINT OF CARE 135 MG/DL (70-110)
[2023-08-18] MEDS: NICOTINE POLACRILEX 4 MG LOZENGE PO PRN ×6 (06:29→21:50)
[2023-08-18] MEDS: MetFORMIN HCL 500 MG TABLET PO SCH ×2 (06:31→18:33)
[2023-08-18] MEDS: INSULIN LISPRO 100 UNITS/ML SQ PRN ×4 (06:35→21:40)
[2023-08-18 07:27] LABS: GLUCOMETER DEV NAME(LOC) 3E.C; GLUCOSE,POINT OF CARE 246 MG/DL (70-110)
[2023-08-18 09:37] VITALS: RESP 18
[2023-08-18] MEDS: TOPIRAMATE 100 MG TABLET PO SCH ×3 (11:16→18:33)
[2023-08-18] MEDS: OMEGA-3/DHA/EPA/FISH OIL 1,000 MG CAPSULE PO SCH (11:17)
[2023-08-18] MEDS: LevETIRAcetam 500 MG TABLET PO SCH ×4 (11:20→20:58)
[2023-08-18] MEDS: CloZAPine 100 MG TABLET PO SCH ×4 (11:21→20:58)
[2023-08-18] MEDS: DOCUSATE SODIUM 250 MG CAPSULE PO SCH ×4 (11:21→20:59)
[2023-08-18] MEDS: DIVALPROEX SODIUM 500 MG ER TABLET PO SCH ×3 (11:22→18:33)
[2023-08-18 11:56] LABS: GLUCOMETER DEV NAME(LOC) 3E.C; GLUCOSE,POINT OF CARE 161 MG/DL (70-110)
[2023-08-18 16:06] LABS: CLOZAPINE & NORCLOZAPINE 485 ng/mL; NORCLOZAPINE 112 ng/mL (Not Estab.)
[2023-08-18 16:16] LABS: GLUCOMETER DEV NAME(LOC) 3E.C; GLUCOSE,POINT OF CARE 304 MG/DL (70-110)
[2023-08-18 20:57] LABS: GLUCOMETER DEV NAME(LOC) 3E.C; GLUCOSE,POINT OF CARE 218 MG/DL (70-110)
[2023-08-18] MEDS: GLYCOPYRROLATE 1 MG TABLET PO SCH (20:57)
[2023-08-18] MEDS: MELATONIN 5 MG TABLET PO SCH (20:57)
[2023-08-18] MEDS: TAMSULOSIN HCL 0.4 MG CAPSULE PO SCH (20:57)
[2023-08-18] MEDS: DUTASTERIDE 0.5 MG CAPSULE PO SCH (20:57)
[2023-08-18] MEDS: SENNOSIDES 8.6 MG TABLET PO SCH (20:58)
[2023-08-18 21:14] VITALS: BP 124/70; PULSE 77; RESP 18; TEMP 98
[2023-08-19 06:26] LABS: GLUCOMETER DEV NAME(LOC) 3E.C; GLUCOSE,POINT OF CARE 233 MG/DL (70-110)
[2023-08-19] MEDS: INSULIN LISPRO 100 UNITS/ML SQ PRN ×4 (06:35→21:28)
[2023-08-19] MEDS: MetFORMIN HCL 500 MG TABLET PO SCH ×2 (06:52→18:06)
[2023-08-19] MEDS: NICOTINE POLACRILEX 4 MG LOZENGE PO PRN ×5 (06:53→19:18)
[2023-08-19 08:30] VITALS: RESP 18
[2023-08-19] MEDS: OMEGA-3/DHA/EPA/FISH OIL 1,000 MG CAPSULE PO SCH (10:09)
[2023-08-19] MEDS: CloZAPine 100 MG TABLET PO SCH ×4 (10:10→20:57)
[2023-08-19] MEDS: DOCUSATE SODIUM 250 MG CAPSULE PO SCH ×4 (10:10→20:57)
[2023-08-19] MEDS: TOPIRAMATE 100 MG TABLET PO SCH ×3 (10:10→17:12)
[2023-08-19] MEDS: LevETIRAcetam 500 MG TABLET PO SCH ×4 (10:10→20:57)
[2023-08-19] MEDS: DIVALPROEX SODIUM 500 MG ER TABLET PO SCH ×3 (10:10→17:12)
[2023-08-19 13:52] LABS: BASOPHILS % (AUTO) 0.7 % (0.0-2.0); EOSINOPHILS % (AUTO) 1.9 % (1.0-6.0); HEMATOCRIT 38.6 % (41-53); HEMOGLOBIN 12.7 g/dL (13.5-17.5); LYMPHOCYTES # (AUTO) 1.9 K/uL (1.0-4.8); LYMPHOCYTES % (AUTO) 32.6 % (22.0-44.0); MEAN CORPUSCULAR HEMOGLOBIN 29.6 pg (26.0-34.0); MEAN CORPUSCULAR VOLUME 90 fL (80-100); MONOCYTES # (AUTO) 0.4 K/uL (0.1-1.0); NEUTROPHILS # (AUTO) 3.5 K/uL (1.8-7.7); NEUTROPHILS % (AUTO) 58.8 % (40.0-70.0); PLATELET COUNT (AUTO) 301 K/uL (150-450); RED BLOOD CELL COUNT(AUTO) 4.29 MIL/uL (4.50-5.90); RED CELL DISTRIBUTION WIDTH 15.3 % (11.5-14.5); WHITE BLOOD COUNT (AUTO) 5.9 K/uL (4.5-11.0)
[2023-08-19 17:26] LABS: GLUCOMETER DEV NAME(LOC) 3E.I 2; GLUCOSE,POINT OF CARE 254 MG/DL (70-110)
[2023-08-19 17:26] LABS: GLUCOMETER DEV NAME(LOC) 3E.I 2; GLUCOSE,POINT OF CARE 223 MG/DL (70-110)
[2023-08-19] MEDS: MELATONIN 5 MG TABLET PO SCH (20:57)
[2023-08-19] MEDS: SENNOSIDES 8.6 MG TABLET PO SCH (20:57)
[2023-08-19] MEDS: DUTASTERIDE 0.5 MG CAPSULE PO SCH (20:57)
[2023-08-19] MEDS: GLYCOPYRROLATE 1 MG TABLET PO SCH (20:57)
[2023-08-19] MEDS: TAMSULOSIN HCL 0.4 MG CAPSULE PO SCH (20:58)
[2023-08-19 20:59] VITALS: BP 107/66; PULSE 90; RESP 19; TEMP 97.8
[2023-08-19 21:01] LABS: GLUCOMETER DEV NAME(LOC) 3E.C; GLUCOSE,POINT OF CARE 299 MG/DL (70-110)
[2023-08-20 06:26] LABS: GLUCOMETER DEV NAME(LOC) 3E.C; GLUCOSE,POINT OF CARE 239 MG/DL (70-110)
[2023-08-20] MEDS: INSULIN LISPRO 100 UNITS/ML SQ PRN ×4 (06:37→21:30)
[2023-08-20] MEDS: MetFORMIN HCL 500 MG TABLET PO SCH ×2 (06:46→16:58)
[2023-08-20] MEDS: OMEGA-3/DHA/EPA/FISH OIL 1,000 MG CAPSULE PO SCH (08:23)
[2023-08-20] MEDS: DOCUSATE SODIUM 250 MG CAPSULE PO SCH ×4 (08:24→20:56)
[2023-08-20] MEDS: TOPIRAMATE 100 MG TABLET PO SCH ×3 (08:24→16:59)
[2023-08-20] MEDS: CloZAPine 100 MG TABLET PO SCH ×4 (08:24→20:56)
[2023-08-20] MEDS: DIVALPROEX SODIUM 500 MG ER TABLET PO SCH ×3 (08:24→16:58)
[2023-08-20] MEDS: LevETIRAcetam 500 MG TABLET PO SCH ×4 (08:24→20:56)
[2023-08-20] MEDS: NICOTINE POLACRILEX 4 MG LOZENGE PO PRN ×5 (08:25→20:57)
[2023-08-20 16:31] LABS: GLUCOMETER DEV NAME(LOC) 3E.I 2; GLUCOSE,POINT OF CARE 173 MG/DL (70-110)
[2023-08-20] MEDS: DUTASTERIDE 0.5 MG CAPSULE PO SCH (20:55)
[2023-08-20] MEDS: SENNOSIDES 8.6 MG TABLET PO SCH (20:56)
[2023-08-20] MEDS: MELATONIN 5 MG TABLET PO SCH (20:56)
[2023-08-20] MEDS: GLYCOPYRROLATE 1 MG TABLET PO SCH (20:56)
[2023-08-20] MEDS: TAMSULOSIN HCL 0.4 MG CAPSULE PO SCH (20:57)
[2023-08-20 21:01] LABS: GLUCOMETER DEV NAME(LOC) 3E.C; GLUCOSE,POINT OF CARE 301 MG/DL (70-110)
[2023-08-20 21:53] VITALS: BP 103/66; PULSE 86; RESP 19; TEMP 98
[2023-08-21 06:02] LABS: GLUCOMETER DEV NAME(LOC) 3E.C; GLUCOSE,POINT OF CARE 245 MG/DL (70-110)
[2023-08-21] MEDS: MetFORMIN HCL 500 MG TABLET PO SCH ×2 (06:49→17:32)
[2023-08-21] MEDS: INSULIN LISPRO 100 UNITS/ML SQ PRN ×4 (06:50→21:38)
[2023-08-21] MEDS: NICOTINE POLACRILEX 4 MG LOZENGE PO PRN ×5 (07:58→20:43)
[2023-08-21] MEDS: TOPIRAMATE 100 MG TABLET PO SCH ×3 (09:30→17:06)
[2023-08-21] MEDS: DIVALPROEX SODIUM 500 MG ER TABLET PO SCH ×3 (09:30→17:06)
[2023-08-21] MEDS: DOCUSATE SODIUM 250 MG CAPSULE PO SCH ×4 (09:30→20:42)
[2023-08-21] MEDS: OMEGA-3/DHA/EPA/FISH OIL 1,000 MG CAPSULE PO SCH (09:30)
[2023-08-21] MEDS: LevETIRAcetam 500 MG TABLET PO SCH ×4 (09:31→20:42)
[2023-08-21] MEDS: CloZAPine 100 MG TABLET PO SCH ×4 (09:31→20:42)
[2023-08-21 11:56] LABS: GLUCOMETER DEV NAME(LOC) 3E.I 2; GLUCOSE,POINT OF CARE 216 MG/DL (70-110)
[2023-08-21 15:35] VITALS: BP 90/68; PULSE 80; RESP 18; TEMP 96.8
[2023-08-21 17:01] LABS: GLUCOMETER DEV NAME(LOC) 3E.I 2; GLUCOSE,POINT OF CARE 81 MG/DL (70-110)
[2023-08-21 17:46] LABS: GLUCOMETER DEV NAME(LOC) 3E.I 2; GLUCOSE,POINT OF CARE 128 MG/DL (70-110)
[2023-08-21 20:10] VITALS: BP 107/72; PULSE 83; RESP 18; TEMP 97.4
[2023-08-21 20:41] LABS: GLUCOMETER DEV NAME(LOC) 3E.C; GLUCOSE,POINT OF CARE 365 MG/DL (70-110)
[2023-08-21] MEDS: DUTASTERIDE 0.5 MG CAPSULE PO SCH (20:41)
[2023-08-21] MEDS: GLYCOPYRROLATE 1 MG TABLET PO SCH (20:41)
[2023-08-21] MEDS: TAMSULOSIN HCL 0.4 MG CAPSULE PO SCH (20:42)
[2023-08-21] MEDS: SENNOSIDES 8.6 MG TABLET PO SCH (20:42)
[2023-08-21] MEDS: MELATONIN 5 MG TABLET PO SCH (20:43)
[2023-08-22 06:06] LABS: GLUCOMETER DEV NAME(LOC) 3E.C; GLUCOSE,POINT OF CARE 219 MG/DL (70-110)
[2023-08-22] MEDS: MetFORMIN HCL 500 MG TABLET PO SCH ×2 (06:50→17:03)
[2023-08-22] MEDS: INSULIN LISPRO 100 UNITS/ML SQ PRN ×4 (06:50→21:34)
[2023-08-22 08:00] VITALS: BP 105/68; PULSE 94; RESP 17; TEMP 96.8
[2023-08-22] MEDS: DOCUSATE SODIUM 250 MG CAPSULE PO SCH ×4 (08:45→20:33)
[2023-08-22] MEDS: LevETIRAcetam 500 MG TABLET PO SCH ×4 (08:45→20:34)
[2023-08-22] MEDS: TOPIRAMATE 100 MG TABLET PO SCH ×3 (08:45→17:04)
[2023-08-22] MEDS: NICOTINE POLACRILEX 4 MG LOZENGE PO PRN ×6 (08:45→20:33)
[2023-08-22] MEDS: CloZAPine 100 MG TABLET PO SCH ×4 (08:45→20:34)
[2023-08-22] MEDS: DIVALPROEX SODIUM 500 MG ER TABLET PO SCH ×3 (08:45→17:04)
[2023-08-22] MEDS: OMEGA-3/DHA/EPA/FISH OIL 1,000 MG CAPSULE PO SCH (09:15)
[2023-08-22 11:21] LABS: GLUCOMETER DEV NAME(LOC) 3E.I 2; GLUCOSE,POINT OF CARE 212 MG/DL (70-110)
[2023-08-22 16:31] LABS: GLUCOMETER DEV NAME(LOC) 3E.I 2; GLUCOSE,POINT OF CARE 121 MG/DL (70-110)
[2023-08-22] MEDS: DUTASTERIDE 0.5 MG CAPSULE PO SCH (20:33)
[2023-08-22] MEDS: SENNOSIDES 8.6 MG TABLET PO SCH (20:34)
[2023-08-22] MEDS: GLYCOPYRROLATE 1 MG TABLET PO SCH (20:34)
[2023-08-22] MEDS: MELATONIN 5 MG TABLET PO SCH (20:34)
[2023-08-22] MEDS: TAMSULOSIN HCL 0.4 MG CAPSULE PO SCH (20:34)
[2023-08-22 20:36] LABS: GLUCOMETER DEV NAME(LOC) 3E.C; GLUCOSE,POINT OF CARE 181 MG/DL (70-110)
[2023-08-22 21:23] VITALS: BP 105/63; PULSE 95; RESP 18; TEMP 97.7
[2023-08-23 06:25] LABS: GLUCOMETER DEV NAME(LOC) 3E.C; GLUCOSE,POINT OF CARE 217 MG/DL (70-110)
[2023-08-23] MEDS: INSULIN LISPRO 100 UNITS/ML SQ PRN ×4 (06:51→21:23)
[2023-08-23] MEDS: MetFORMIN HCL 500 MG TABLET PO SCH ×2 (06:51→16:15)
[2023-08-23] MEDS: OMEGA-3/DHA/EPA/FISH OIL 1,000 MG CAPSULE PO SCH (08:13)
[2023-08-23] MEDS: DIVALPROEX SODIUM 500 MG ER TABLET PO SCH ×3 (08:13→16:15)
[2023-08-23] MEDS: DOCUSATE SODIUM 250 MG CAPSULE PO SCH ×4 (08:13→21:04)
[2023-08-23] MEDS: LevETIRAcetam 500 MG TABLET PO SCH ×4 (08:13→20:47)
[2023-08-23] MEDS: TOPIRAMATE 100 MG TABLET PO SCH ×3 (08:14→16:15)
[2023-08-23] MEDS: CloZAPine 100 MG TABLET PO SCH ×4 (08:15→20:47)
[2023-08-23 11:36] LABS: GLUCOMETER DEV NAME(LOC) 3E.C; GLUCOSE,POINT OF CARE 144 MG/DL (70-110)
[2023-08-23] MEDS: NICOTINE POLACRILEX 4 MG LOZENGE PO PRN ×5 (11:48→21:07)
[2023-08-23 17:11] LABS: GLUCOMETER DEV NAME(LOC) 3E.C; GLUCOSE,POINT OF CARE 188 MG/DL (70-110)
[2023-08-23 20:00] VITALS: BP 94/72; PULSE 94; RESP 18; TEMP 97.4
[2023-08-23 20:46] LABS: GLUCOMETER DEV NAME(LOC) 3E.C; GLUCOSE,POINT OF CARE 184 MG/DL (70-110)
[2023-08-23] MEDS: SENNOSIDES 8.6 MG TABLET PO SCH (20:47)
[2023-08-23] MEDS: DUTASTERIDE 0.5 MG CAPSULE PO SCH (20:47)
[2023-08-23] MEDS: GLYCOPYRROLATE 1 MG TABLET PO SCH (20:48)
[2023-08-23] MEDS: MELATONIN 5 MG TABLET PO SCH (20:48)
[2023-08-23] MEDS: TAMSULOSIN HCL 0.4 MG CAPSULE PO SCH (20:48)
[2023-08-23] MEDS: ZOLPIDEM TARTRATE 10 MG TABLET PO PRN (21:07)
[2023-08-24 06:17] LABS: GLUCOMETER DEV NAME(LOC) 3E.C; GLUCOSE,POINT OF CARE 197 MG/DL (70-110)
[2023-08-24] MEDS: INSULIN LISPRO 100 UNITS/ML SQ PRN ×4 (06:41→21:06)
[2023-08-24] MEDS: MetFORMIN HCL 500 MG TABLET PO SCH ×2 (06:47→17:51)
[2023-08-24] MEDS: TOPIRAMATE 100 MG TABLET PO SCH ×3 (08:04→16:44)
[2023-08-24] MEDS: DOCUSATE SODIUM 250 MG CAPSULE PO SCH ×4 (08:05→20:51)
[2023-08-24] MEDS: OMEGA-3/DHA/EPA/FISH OIL 1,000 MG CAPSULE PO SCH (08:05)
[2023-08-24] MEDS: LevETIRAcetam 500 MG TABLET PO SCH ×4 (08:05→20:50)
[2023-08-24] MEDS: CloZAPine 100 MG TABLET PO SCH ×4 (08:05→20:50)
[2023-08-24] MEDS: DIVALPROEX SODIUM 500 MG ER TABLET PO SCH ×3 (08:05→16:43)
[2023-08-24] MEDS: NICOTINE POLACRILEX 4 MG LOZENGE PO PRN ×5 (10:30→20:49)
[2023-08-24 11:30] VITALS: RESP 19
[2023-08-24 11:46] LABS: GLUCOMETER DEV NAME(LOC) 3E.C; GLUCOSE,POINT OF CARE 187 MG/DL (70-110)
[2023-08-24 16:26] LABS: GLUCOMETER DEV NAME(LOC) 3E.C; GLUCOSE,POINT OF CARE 177 MG/DL (70-110)
[2023-08-24 20:25] VITALS: BP 100/60; PULSE 97; RESP 18; TEMP 97.7
[2023-08-24 20:41] LABS: GLUCOMETER DEV NAME(LOC) 3E.C; GLUCOSE,POINT OF CARE 181 MG/DL (70-110)
[2023-08-24] MEDS: DUTASTERIDE 0.5 MG CAPSULE PO SCH (20:49)
[2023-08-24] MEDS: TAMSULOSIN HCL 0.4 MG CAPSULE PO SCH (20:50)
[2023-08-24] MEDS: GLYCOPYRROLATE 1 MG TABLET PO SCH (20:50)
[2023-08-24] MEDS: SENNOSIDES 8.6 MG TABLET PO SCH (20:50)
[2023-08-24] MEDS: MELATONIN 5 MG TABLET PO SCH (20:51)
[2023-08-25 06:16] LABS: GLUCOMETER DEV NAME(LOC) 3E.C; GLUCOSE,POINT OF CARE 200 MG/DL (70-110)
[2023-08-25] MEDS: MetFORMIN HCL 500 MG TABLET PO SCH ×2 (06:46→17:22)
[2023-08-25] MEDS: INSULIN LISPRO 100 UNITS/ML SQ PRN ×4 (06:46→21:18)
[2023-08-25] MEDS: DOCUSATE SODIUM 250 MG CAPSULE PO SCH ×4 (08:08→20:55)
[2023-08-25] MEDS: DIVALPROEX SODIUM 500 MG ER TABLET PO SCH ×3 (08:08→17:22)
[2023-08-25] MEDS: OMEGA-3/DHA/EPA/FISH OIL 1,000 MG CAPSULE PO SCH (08:09)
[2023-08-25] MEDS: NICOTINE POLACRILEX 4 MG LOZENGE PO PRN ×6 (08:09→20:54)
[2023-08-25] MEDS: CloZAPine 100 MG TABLET PO SCH ×4 (08:09→20:54)
[2023-08-25] MEDS: TOPIRAMATE 100 MG TABLET PO SCH ×3 (08:09→17:22)
[2023-08-25] MEDS: LevETIRAcetam 500 MG TABLET PO SCH ×4 (08:11→20:55)
[2023-08-25 09:00] VITALS: BP 101/77; PULSE 93; RESP 18; TEMP 98.6
[2023-08-25 09:24] LABS: BASOPHILS % (AUTO) 0.8 % (0.0-2.0); EOSINOPHILS % (AUTO) 1.6 % (1.0-6.0); HEMATOCRIT 39.7 % (41-53); LYMPHOCYTES # (AUTO) 2.2 K/uL (1.0-4.8); LYMPHOCYTES % (AUTO) 40.9 % (22.0-44.0); MEAN CORPUSCULAR HEMOGLOBIN 29.6 pg (26.0-34.0); MEAN CORPUSCULAR HGB CONC 32.8 G/dL (31.0-37.0); MEAN CORPUSCULAR VOLUME 90 fL (80-100); MONOCYTES # (AUTO) 0.5 K/uL (0.1-1.0); MONOCYTES % (AUTO) 8.5 % (2.0-9.0); NEUTROPHILS # (AUTO) 2.6 K/uL (1.8-7.7); NEUTROPHILS % (AUTO) 48.2 % (40.0-70.0); PLATELET COUNT (AUTO) 286 K/uL (150-450); RED BLOOD CELL COUNT(AUTO) 4.39 MIL/uL (4.50-5.90); RED CELL DISTRIBUTION WIDTH 15.4 % (11.5-14.5); WHITE BLOOD COUNT (AUTO) 5.3 K/uL (4.5-11.0)
[2023-08-25 09:40] LABS: ALANINE AMINOTRANSFERASE 22 U/L (12-78); ALBUMIN 3.2 g/dL (3.4-5.0); ALKALINE PHOSPHATASE 75 U/L (46-116); ANION GAP 4 mmol/L (8-16); ASPARTATE AMINOTRANSFERASE 15 U/L (15-37); BILIRUBIN,TOTAL 0.2 mg/dL (0.1-1.0); CALCIUM, TOTAL 8.9 mg/dL (8.8-10.5); CARBON DIOXIDE 29 mmol/L (22-29); CHLORIDE 103 mmol/L (98-107); CREATININE 0.93 mg/dL (0.60-1.30); GLOMERULAR FILTR. RATE CALC > 60 mL/min (>60); GLUCOSE,RANDOM 244 mg/dL (70-110); POTASSIUM 4.3 mmol/L (3.5-5.1); SODIUM SERUM 136 mmol/L (136-145); TOTAL PROTEIN, SERUM 7.4 g/dL (6.4-8.2); UREA NITROGEN, BLOOD 16 mg/dL (7-18)
[2023-08-25 11:32] LABS: GLUCOMETER DEV NAME(LOC) 3E.C; GLUCOSE,POINT OF CARE 193 MG/DL (70-110)
[2023-08-25 16:31] LABS: GLUCOMETER DEV NAME(LOC) 3E.C; GLUCOSE,POINT OF CARE 231 MG/DL (70-110)
[2023-08-25] MEDS: DUTASTERIDE 0.5 MG CAPSULE PO SCH (20:54)
[2023-08-25] MEDS: GLYCOPYRROLATE 1 MG TABLET PO SCH (20:54)
[2023-08-25] MEDS: TAMSULOSIN HCL 0.4 MG CAPSULE PO SCH (20:55)
[2023-08-25] MEDS: MELATONIN 5 MG TABLET PO SCH (20:55)
[2023-08-25] MEDS: SENNOSIDES 8.6 MG TABLET PO SCH (20:55)
[2023-08-25 21:01] LABS: GLUCOMETER DEV NAME(LOC) 3E.C; GLUCOSE,POINT OF CARE 308 MG/DL (70-110)
[2023-08-25 21:03] VITALS: BP 101/67; PULSE 90; RESP 18; TEMP 97.3
[2023-08-26 06:21] LABS: GLUCOMETER DEV NAME(LOC) 3E.C; GLUCOSE,POINT OF CARE 204 MG/DL (70-110)
[2023-08-26] MEDS: INSULIN LISPRO 100 UNITS/ML SQ PRN ×3 (06:40→18:07)
[2023-08-26] MEDS: MetFORMIN HCL 500 MG TABLET PO SCH ×2 (06:46→17:56)
[2023-08-26] MEDS: DOCUSATE SODIUM 250 MG CAPSULE PO SCH ×4 (08:28→20:23)
[2023-08-26] MEDS: TOPIRAMATE 100 MG TABLET PO SCH ×3 (08:28→16:35)
[2023-08-26] MEDS: LevETIRAcetam 500 MG TABLET PO SCH ×4 (08:28→20:23)
[2023-08-26] MEDS: DIVALPROEX SODIUM 500 MG ER TABLET PO SCH ×3 (08:28→16:33)
[2023-08-26] MEDS: CloZAPine 100 MG TABLET PO SCH ×4 (08:28→20:23)
[2023-08-26] MEDS: OMEGA-3/DHA/EPA/FISH OIL 1,000 MG CAPSULE PO SCH (08:30)
[2023-08-26] MEDS: NICOTINE POLACRILEX 4 MG LOZENGE PO PRN ×6 (10:13→21:13)
[2023-08-26 11:07] LABS: CLOZAPINE & NORCLOZAPINE 332 ng/mL; NORCLOZAPINE 88 ng/mL (Not Estab.)
[2023-08-26 11:31] LABS: GLUCOMETER DEV NAME(LOC) 3E.C; GLUCOSE,POINT OF CARE 129 MG/DL (70-110)
[2023-08-26 16:31] LABS: GLUCOMETER DEV NAME(LOC) 3E.C; GLUCOSE,POINT OF CARE 286 MG/DL (70-110)
[2023-08-26 20:08] VITALS: BP 114/76; PULSE 89; RESP 18; TEMP 96.8
[2023-08-26 20:22] LABS: GLUCOMETER DEV NAME(LOC) 3E.C; GLUCOSE,POINT OF CARE 105 MG/DL (70-110)
[2023-08-26] MEDS: MELATONIN 5 MG TABLET PO SCH (20:22)
[2023-08-26] MEDS: DUTASTERIDE 0.5 MG CAPSULE PO SCH (20:22)
[2023-08-26] MEDS: TAMSULOSIN HCL 0.4 MG CAPSULE PO SCH (20:23)
[2023-08-26] MEDS: GLYCOPYRROLATE 1 MG TABLET PO SCH (20:23)
[2023-08-26] MEDS: SENNOSIDES 8.6 MG TABLET PO SCH (20:24)
[2023-08-26] MEDS: ZOLPIDEM TARTRATE 10 MG TABLET PO PRN (21:13)
[2023-08-27 01:06] LABS: PSA % FREE 33.3 %; PSA FREE 0.1 ng/mL
[2023-08-27] MEDS: NICOTINE POLACRILEX 4 MG LOZENGE PO PRN ×6 (05:27→21:13)
[2023-08-27 05:36] LABS: GLUCOMETER DEV NAME(LOC) 3E.C; GLUCOSE,POINT OF CARE 187 MG/DL (70-110)
[2023-08-27] MEDS: MetFORMIN HCL 500 MG TABLET PO SCH ×2 (06:41→17:39)
[2023-08-27] MEDS: INSULIN LISPRO 100 UNITS/ML SQ PRN ×4 (06:42→21:09)
[2023-08-27] MEDS: OMEGA-3/DHA/EPA/FISH OIL 1,000 MG CAPSULE PO SCH (10:06)
[2023-08-27] MEDS: LevETIRAcetam 500 MG TABLET PO SCH ×4 (10:06→21:12)
[2023-08-27] MEDS: DOCUSATE SODIUM 250 MG CAPSULE PO SCH ×4 (10:07→21:12)
[2023-08-27] MEDS: DIVALPROEX SODIUM 500 MG ER TABLET PO SCH ×3 (10:07→17:39)
[2023-08-27] MEDS: TOPIRAMATE 100 MG TABLET PO SCH ×3 (10:07→17:40)
[2023-08-27] MEDS: CloZAPine 100 MG TABLET PO SCH ×4 (10:07→21:11)
[2023-08-27 11:31] LABS: GLUCOMETER DEV NAME(LOC) 3E.C; GLUCOSE,POINT OF CARE 254 MG/DL (70-110)
[2023-08-27 12:12] VITALS: BP 118/65; PULSE 91; RESP 18; TEMP 98
[2023-08-27 17:21] LABS: GLUCOMETER DEV NAME(LOC) 3E.C; GLUCOSE,POINT OF CARE 231 MG/DL (70-110)
[2023-08-27 21:00] LABS: GLUCOMETER DEV NAME(LOC) 3E.C; GLUCOSE,POINT OF CARE 150 MG/DL (70-110)
[2023-08-27] MEDS: SENNOSIDES 8.6 MG TABLET PO SCH (21:12)
[2023-08-27] MEDS: MELATONIN 5 MG TABLET PO SCH (21:12)
[2023-08-27] MEDS: GLYCOPYRROLATE 1 MG TABLET PO SCH (21:12)
[2023-08-27] MEDS: DUTASTERIDE 0.5 MG CAPSULE PO SCH (21:12)
[2023-08-27] MEDS: TAMSULOSIN HCL 0.4 MG CAPSULE PO SCH (21:12)
[2023-08-27 21:15] VITALS: BP 99/60; PULSE 89; RESP 19; TEMP 97.8
[2023-08-27] MEDS: ZOLPIDEM TARTRATE 10 MG TABLET PO PRN (21:50)
[2023-08-28] MEDS: NICOTINE POLACRILEX 4 MG LOZENGE PO PRN ×7 (01:55→21:17)
[2023-08-28] MEDS: MetFORMIN HCL 500 MG TABLET PO SCH ×2 (06:35→18:05)
[2023-08-28] MEDS: INSULIN LISPRO 100 UNITS/ML SQ PRN ×4 (06:36→21:05)
[2023-08-28 06:46] LABS: GLUCOMETER DEV NAME(LOC) 3E.C; GLUCOSE,POINT OF CARE 238 MG/DL (70-110)
[2023-08-28 08:00] VITALS: BP 98/65; PULSE 80; RESP 16; TEMP 97.2
[2023-08-28] MEDS: CloZAPine 100 MG TABLET PO SCH ×4 (09:56→21:16)
[2023-08-28] MEDS: TOPIRAMATE 100 MG TABLET PO SCH ×3 (09:56→18:03)
[2023-08-28] MEDS: DOCUSATE SODIUM 250 MG CAPSULE PO SCH ×4 (09:56→21:17)
[2023-08-28] MEDS: LevETIRAcetam 500 MG TABLET PO SCH ×4 (09:56→21:16)
[2023-08-28] MEDS: DIVALPROEX SODIUM 500 MG ER TABLET PO SCH ×3 (09:56→18:04)
[2023-08-28] MEDS: OMEGA-3/DHA/EPA/FISH OIL 1,000 MG CAPSULE PO SCH (09:56)
[2023-08-28 11:56] LABS: GLUCOMETER DEV NAME(LOC) 3E.C; GLUCOSE,POINT OF CARE 278 MG/DL (70-110)
[2023-08-28 17:37] LABS: GLUCOMETER DEV NAME(LOC) 3E.C; GLUCOSE,POINT OF CARE 204 MG/DL (70-110)
[2023-08-28 21:06] LABS: GLUCOMETER DEV NAME(LOC) 3E.C; GLUCOSE,POINT OF CARE 211 MG/DL (70-110)
[2023-08-28] MEDS: GLYCOPYRROLATE 1 MG TABLET PO SCH (21:16)
[2023-08-28] MEDS: DUTASTERIDE 0.5 MG CAPSULE PO SCH (21:16)
[2023-08-28] MEDS: TAMSULOSIN HCL 0.4 MG CAPSULE PO SCH (21:17)
[2023-08-28] MEDS: SENNOSIDES 8.6 MG TABLET PO SCH (21:17)
[2023-08-28] MEDS: MELATONIN 5 MG TABLET PO SCH (21:19)
[2023-08-28] MEDS: ZOLPIDEM TARTRATE 10 MG TABLET PO PRN (21:49)
[2023-08-28 22:15] VITALS: BP 100/62; PULSE 90; RESP 18; TEMP 97.8
[2023-08-29 02:03] LABS: COVID AG,FIA SOURCE NASAL SWAB
[2023-08-29 03:08] LABS: SARS-COV2 (COVID) ANTIGEN,FIA Negative (Negative)
[2023-08-29 05:31] LABS: GLUCOMETER DEV NAME(LOC) 3E.C; GLUCOSE,POINT OF CARE 203 MG/DL (70-110)
[2023-08-29] MEDS: INSULIN LISPRO 100 UNITS/ML SQ PRN ×5 (06:39→21:14)
[2023-08-29] MEDS: MetFORMIN HCL 500 MG TABLET PO SCH ×2 (06:54→17:35)
[2023-08-29] MEDS: TOPIRAMATE 100 MG TABLET PO SCH ×3 (08:30→16:45)
[2023-08-29] MEDS: DOCUSATE SODIUM 250 MG CAPSULE PO SCH ×4 (08:30→20:48)
[2023-08-29] MEDS: LevETIRAcetam 500 MG TABLET PO SCH ×4 (08:30→20:48)
[2023-08-29] MEDS: CloZAPine 100 MG TABLET PO SCH ×4 (08:30→20:48)
[2023-08-29] MEDS: OMEGA-3/DHA/EPA/FISH OIL 1,000 MG CAPSULE PO SCH (08:30)
[2023-08-29] MEDS: DIVALPROEX SODIUM 500 MG ER TABLET PO SCH ×3 (08:30→16:45)
[2023-08-29] MEDS: NICOTINE POLACRILEX 4 MG LOZENGE PO PRN ×4 (08:32→21:11)
[2023-08-29 10:06] VITALS: BP 105/60; PULSE 87; RESP 18; TEMP 97.8
[2023-08-29 11:46] LABS: GLUCOMETER DEV NAME(LOC) 3E.C; GLUCOSE,POINT OF CARE 193 MG/DL (70-110)
[2023-08-29 16:50] LABS: GLUCOMETER DEV NAME(LOC) 3E.C; GLUCOSE,POINT OF CARE 240 MG/DL (70-110)
[2023-08-29] MEDS: TAMSULOSIN HCL 0.4 MG CAPSULE PO SCH (20:48)
[2023-08-29] MEDS: SENNOSIDES 8.6 MG TABLET PO SCH (20:48)
[2023-08-29] MEDS: DUTASTERIDE 0.5 MG CAPSULE PO SCH (20:48)
[2023-08-29] MEDS: GLYCOPYRROLATE 1 MG TABLET PO SCH (20:49)
[2023-08-29] MEDS: MELATONIN 5 MG TABLET PO SCH (20:49)
[2023-08-29 21:16] LABS: GLUCOMETER DEV NAME(LOC) 3E.C; GLUCOSE,POINT OF CARE 148 MG/DL (70-110)
[2023-08-29 22:26] VITALS: BP_SYST 107; BP_SYST 128; BP_DIAS 75; BP_DIAS 78; PULSE 105; PULSE 78; RESP 18; RESP 20; TEMP 98
[2023-08-30 06:11] LABS: GLUCOMETER DEV NAME(LOC) 3E.C; GLUCOSE,POINT OF CARE 229 MG/DL (70-110)
[2023-08-30] MEDS: INSULIN LISPRO 100 UNITS/ML SQ PRN ×4 (06:43→21:17)
[2023-08-30] MEDS: MetFORMIN HCL 500 MG TABLET PO SCH ×2 (06:43→16:50)
[2023-08-30] MEDS: DOCUSATE SODIUM 250 MG CAPSULE PO SCH ×4 (08:55→20:36)
[2023-08-30] MEDS: DIVALPROEX SODIUM 500 MG ER TABLET PO SCH ×3 (08:55→16:50)
[2023-08-30] MEDS: TOPIRAMATE 100 MG TABLET PO SCH ×3 (08:55→16:50)
[2023-08-30] MEDS: LevETIRAcetam 500 MG TABLET PO SCH ×4 (08:55→20:36)
[2023-08-30] MEDS: CloZAPine 100 MG TABLET PO SCH ×4 (08:55→20:36)
[2023-08-30] MEDS: OMEGA-3/DHA/EPA/FISH OIL 1,000 MG CAPSULE PO SCH (08:55)
[2023-08-30] MEDS: NICOTINE POLACRILEX 4 MG LOZENGE PO PRN ×5 (08:57→19:36)
[2023-08-30 11:56] LABS: GLUCOMETER DEV NAME(LOC) 3E.C; GLUCOSE,POINT OF CARE 193 MG/DL (70-110)
[2023-08-30 14:07] VITALS: BP 95/65; PULSE 78; RESP 18; TEMP 98.2
[2023-08-30 16:51] LABS: GLUCOMETER DEV NAME(LOC) 3E.C; GLUCOSE,POINT OF CARE 122 MG/DL (70-110)
[2023-08-30] MEDS: MELATONIN 5 MG TABLET PO SCH (20:36)
[2023-08-30] MEDS: GLYCOPYRROLATE 1 MG TABLET PO SCH (20:36)
[2023-08-30] MEDS: TAMSULOSIN HCL 0.4 MG CAPSULE PO SCH (20:36)
[2023-08-30] MEDS: SENNOSIDES 8.6 MG TABLET PO SCH (20:36)
[2023-08-30] MEDS: DUTASTERIDE 0.5 MG CAPSULE PO SCH (20:37)
[2023-08-30 20:38] VITALS: RESP 18; TEMP 97.8
[2023-08-30 21:36] LABS: GLUCOMETER DEV NAME(LOC) 3E.C; GLUCOSE,POINT OF CARE 182 MG/DL (70-110)
[2023-08-31] MEDS: INSULIN LISPRO 100 UNITS/ML SQ PRN ×4 (06:05→21:30)
[2023-08-31 06:06] LABS: GLUCOMETER DEV NAME(LOC) 3E.C; GLUCOSE,POINT OF CARE 163 MG/DL (70-110)
[2023-08-31] MEDS: MetFORMIN HCL 500 MG TABLET PO SCH ×2 (06:37→18:03)
[2023-08-31] MEDS: CloZAPine 100 MG TABLET PO SCH ×4 (10:41→21:03)
[2023-08-31] MEDS: LevETIRAcetam 500 MG TABLET PO SCH ×4 (10:41→21:03)
[2023-08-31] MEDS: DOCUSATE SODIUM 250 MG CAPSULE PO SCH ×4 (10:41→21:04)
[2023-08-31] MEDS: DIVALPROEX SODIUM 500 MG ER TABLET PO SCH ×3 (10:41→18:02)
[2023-08-31] MEDS: TOPIRAMATE 100 MG TABLET PO SCH ×3 (10:43→18:02)
[2023-08-31] MEDS: OMEGA-3/DHA/EPA/FISH OIL 1,000 MG CAPSULE PO SCH (10:43)
[2023-08-31] MEDS: NICOTINE POLACRILEX 4 MG LOZENGE PO PRN ×4 (10:43→21:05)
[2023-08-31 12:11] LABS: GLUCOMETER DEV NAME(LOC) 3E.C; GLUCOSE,POINT OF CARE 239 MG/DL (70-110)
[2023-08-31 12:23] VITALS: BP 105/63; PULSE 81; RESP 18; TEMP 98.2
[2023-08-31 14:47] LABS: COVID AG,FIA SOURCE NASAL SWAB
[2023-08-31 15:07] LABS: SARS-COV2 (COVID) ANTIGEN,FIA Positive (Negative)
[2023-08-31 16:07] VITALS: TEMP 98.1
[2023-08-31 16:41] LABS: GLUCOMETER DEV NAME(LOC) 3E.C; GLUCOSE,POINT OF CARE 146 MG/DL (70-110)
[2023-08-31 20:09] VITALS: BP 109/67; PULSE 86; RESP 18; TEMP 97.8
[2023-08-31] MEDS: GLYCOPYRROLATE 1 MG TABLET PO SCH (21:02)
[2023-08-31] MEDS: MELATONIN 5 MG TABLET PO SCH (21:03)
[2023-08-31] MEDS: TAMSULOSIN HCL 0.4 MG CAPSULE PO SCH (21:03)
[2023-08-31] MEDS: SENNOSIDES 8.6 MG TABLET PO SCH (21:03)
[2023-08-31] MEDS: DUTASTERIDE 0.5 MG CAPSULE PO SCH (21:03)
[2023-08-31] MEDS: ZOLPIDEM TARTRATE 10 MG TABLET PO PRN (21:04)
[2023-08-31 22:51] LABS: GLUCOMETER DEV NAME(LOC) 3E.C; GLUCOSE,POINT OF CARE 139 MG/DL (70-110)
[2023-09-01] MEDS: NICOTINE POLACRILEX 4 MG LOZENGE PO PRN ×6 (06:20→21:20)
[2023-09-01] MEDS: MetFORMIN HCL 500 MG TABLET PO SCH ×2 (06:41→17:59)
[2023-09-01] MEDS: INSULIN LISPRO 100 UNITS/ML SQ PRN ×4 (06:44→21:33)
[2023-09-01 07:06] LABS: GLUCOMETER DEV NAME(LOC) 3E.C; GLUCOSE,POINT OF CARE 178 MG/DL (70-110)
[2023-09-01 08:23] LABS: BASOPHILS % (AUTO) 0.6 % (0.0-2.0); EOSINOPHILS % (AUTO) 2.2 % (1.0-6.0); HEMATOCRIT 36.8 % (41-53); HEMOGLOBIN 12.3 g/dL (13.5-17.5); LYMPHOCYTES # (AUTO) 1.4 K/uL (1.0-4.8); LYMPHOCYTES % (AUTO) 38.8 % (22.0-44.0); MEAN CORPUSCULAR HEMOGLOBIN 29.8 pg (26.0-34.0); MEAN CORPUSCULAR HGB CONC 33.4 G/dL (31.0-37.0); MEAN CORPUSCULAR VOLUME 89 fL (80-100); MONOCYTES # (AUTO) 0.3 K/uL (0.1-1.0); MONOCYTES % (AUTO) 9.3 % (2.0-9.0); NEUTROPHILS # (AUTO) 1.7 K/uL (1.8-7.7); NEUTROPHILS % (AUTO) 49.1 % (40.0-70.0); PLATELET COUNT (AUTO) 231 K/uL (150-450); RED BLOOD CELL COUNT(AUTO) 4.12 MIL/uL (4.50-5.90); RED CELL DISTRIBUTION WIDTH 15.3 % (11.5-14.5); WHITE BLOOD COUNT (AUTO) 3.5 K/uL (4.5-11.0)
[2023-09-01 08:26] LABS: RBC MORPHOLOGY COMMENT NORMAL RBC MORPH
[2023-09-01 08:30] VITALS: BP 104/44; PULSE 81; RESP 18; TEMP 98
[2023-09-01] MEDS: DOCUSATE SODIUM 250 MG CAPSULE PO SCH ×4 (08:47→21:19)
[2023-09-01] MEDS: CloZAPine 100 MG TABLET PO SCH ×4 (08:47→21:18)
[2023-09-01] MEDS: OMEGA-3/DHA/EPA/FISH OIL 1,000 MG CAPSULE PO SCH (08:47)
[2023-09-01] MEDS: LevETIRAcetam 500 MG TABLET PO SCH ×4 (08:47→21:19)
[2023-09-01] MEDS: DIVALPROEX SODIUM 500 MG ER TABLET PO SCH ×3 (08:48→17:59)
[2023-09-01] MEDS: TOPIRAMATE 100 MG TABLET PO SCH ×3 (08:48→17:59)
[2023-09-01 11:37] LABS: GLUCOMETER DEV NAME(LOC) 3E.C; GLUCOSE,POINT OF CARE 185 MG/DL (70-110)
[2023-09-01 11:39] VITALS: BP 104/44; PULSE 81; RESP 18; TEMP 98
[2023-09-01 12:00] VITALS: BP 93/53; PULSE 71; RESP 18; TEMP 97.2
[2023-09-01 15:47] LABS: BASOPHILS % (AUTO) 0.6 % (0.0-2.0); EOSINOPHILS % (AUTO) 1.9 % (1.0-6.0); HEMATOCRIT 36.5 % (41-53); LYMPHOCYTES # (AUTO) 1.6 K/uL (1.0-4.8); LYMPHOCYTES % (AUTO) 36.6 % (22.0-44.0); MEAN CORPUSCULAR HEMOGLOBIN 29.6 pg (26.0-34.0); MEAN CORPUSCULAR HGB CONC 32.9 G/dL (31.0-37.0); MEAN CORPUSCULAR VOLUME 90 fL (80-100); MONOCYTES # (AUTO) 0.3 K/uL (0.1-1.0); NEUTROPHILS # (AUTO) 2.3 K/uL (1.8-7.7); NEUTROPHILS % (AUTO) 52.9 % (40.0-70.0); PLATELET COUNT (AUTO) 236 K/uL (150-450); RED BLOOD CELL COUNT(AUTO) 4.06 MIL/uL (4.50-5.90); RED CELL DISTRIBUTION WIDTH 15.3 % (11.5-14.5); WHITE BLOOD COUNT (AUTO) 4.3 K/uL (4.5-11.0)
[2023-09-01 16:00] VITALS: BP 99/66; PULSE 85; RESP 18; TEMP 97.8
[2023-09-01 17:46] LABS: GLUCOMETER DEV NAME(LOC) 3E.C; GLUCOSE,POINT OF CARE 253 MG/DL (70-110)
[2023-09-01] MEDS: TAMSULOSIN HCL 0.4 MG CAPSULE PO SCH (21:18)
[2023-09-01] MEDS: DUTASTERIDE 0.5 MG CAPSULE PO SCH (21:18)
[2023-09-01] MEDS: BISACODYL 5 MG EC TABLET PO SCH (21:19)
[2023-09-01] MEDS: MELATONIN 5 MG TABLET PO SCH (21:19)
[2023-09-01] MEDS: GLYCOPYRROLATE 1 MG TABLET PO SCH (21:19)
[2023-09-01 21:46] LABS: GLUCOMETER DEV NAME(LOC) 3E.C; GLUCOSE,POINT OF CARE 168 MG/DL (70-110)
[2023-09-01] MEDS: ZOLPIDEM TARTRATE 10 MG TABLET PO PRN (22:05)
[2023-09-01 22:16] VITALS: BP 97/6; PULSE 85; RESP 18; TEMP 97.8
[2023-09-02 00:05] VITALS: RESP 17; TEMP 97.6
[2023-09-02 04:32] VITALS: RESP 18; TEMP 97.7
[2023-09-02] MEDS: NICOTINE POLACRILEX 4 MG LOZENGE PO PRN ×4 (06:19→19:20)
[2023-09-02] MEDS: MetFORMIN HCL 500 MG TABLET PO SCH ×2 (06:46→16:55)
[2023-09-02] MEDS: INSULIN LISPRO 100 UNITS/ML SQ PRN ×4 (06:51→21:21)
[2023-09-02 07:17] LABS: GLUCOMETER DEV NAME(LOC) 3E.C; GLUCOSE,POINT OF CARE 203 MG/DL (70-110)
[2023-09-02] MEDS: DOCUSATE SODIUM 250 MG CAPSULE PO SCH ×4 (08:21→21:13)
[2023-09-02] MEDS: DIVALPROEX SODIUM 500 MG ER TABLET PO SCH ×3 (08:21→16:55)
[2023-09-02] MEDS: OMEGA-3/DHA/EPA/FISH OIL 1,000 MG CAPSULE PO SCH (08:21)
[2023-09-02] MEDS: LevETIRAcetam 500 MG TABLET PO SCH ×4 (08:21→21:12)
[2023-09-02] MEDS: TOPIRAMATE 100 MG TABLET PO SCH ×3 (08:22→16:55)
[2023-09-02] MEDS: CloZAPine 100 MG TABLET PO SCH ×4 (08:22→21:12)
[2023-09-02 08:24] VITALS: BP 100/63; PULSE 86; RESP 18; TEMP 97.5
[2023-09-02 11:47] LABS: GLUCOMETER DEV NAME(LOC) 3E.C; GLUCOSE,POINT OF CARE 146 MG/DL (70-110)
[2023-09-02 12:36] VITALS: RESP 16; TEMP 97.7
[2023-09-02 16:00] VITALS: RESP 18; TEMP 96.8
[2023-09-02 20:16] LABS: GLUCOMETER DEV NAME(LOC) 3E.C; GLUCOSE,POINT OF CARE 283 MG/DL (70-110)
[2023-09-02 20:21] VITALS: BP 96/61; PULSE 91; RESP 18; TEMP 97.3
[2023-09-02] MEDS: DUTASTERIDE 0.5 MG CAPSULE PO SCH (21:12)
[2023-09-02] MEDS: GLYCOPYRROLATE 1 MG TABLET PO SCH (21:12)
[2023-09-02] MEDS: BISACODYL 5 MG EC TABLET PO SCH (21:13)
[2023-09-02] MEDS: TAMSULOSIN HCL 0.4 MG CAPSULE PO SCH (21:13)
[2023-09-02] MEDS: MELATONIN 5 MG TABLET PO SCH (21:13)
[2023-09-02 21:26] LABS: GLUCOMETER DEV NAME(LOC) 3E.C; GLUCOSE,POINT OF CARE 226 MG/DL (70-110)
[2023-09-03 00:53] VITALS: RESP 18; TEMP 97
[2023-09-03 04:18] VITALS: RESP 18; TEMP 97.2
[2023-09-03] MEDS: NICOTINE POLACRILEX 4 MG LOZENGE PO PRN ×5 (06:36→18:52)
[2023-09-03 06:47] LABS: GLUCOMETER DEV NAME(LOC) 3E.C; GLUCOSE,POINT OF CARE 256 MG/DL (70-110)
[2023-09-03] MEDS: MetFORMIN HCL 500 MG TABLET PO SCH ×2 (06:56→16:10)
[2023-09-03] MEDS: INSULIN LISPRO 100 UNITS/ML SQ PRN ×3 (07:04→21:22)
[2023-09-03 08:00] VITALS: BP 104/70; PULSE 85; RESP 17; TEMP 97.7
[2023-09-03] MEDS: OMEGA-3/DHA/EPA/FISH OIL 1,000 MG CAPSULE PO SCH (08:58)
[2023-09-03] MEDS: LevETIRAcetam 500 MG TABLET PO SCH ×4 (08:58→21:03)
[2023-09-03] MEDS: DIVALPROEX SODIUM 500 MG ER TABLET PO SCH ×3 (08:58→16:10)
[2023-09-03] MEDS: DOCUSATE SODIUM 250 MG CAPSULE PO SCH ×4 (08:59→21:03)
[2023-09-03] MEDS: CloZAPine 100 MG TABLET PO SCH ×4 (08:59→21:03)
[2023-09-03] MEDS: TOPIRAMATE 100 MG TABLET PO SCH ×3 (08:59→16:10)
[2023-09-03 12:00] LABS: GLUCOMETER DEV NAME(LOC) 3E.C; GLUCOSE,POINT OF CARE 235 MG/DL (70-110)
[2023-09-03 12:27] VITALS: RESP 17; TEMP 97.2
[2023-09-03 16:41] LABS: GLUCOMETER DEV NAME(LOC) 3E.C; GLUCOSE,POINT OF CARE 88 MG/DL (70-110)
[2023-09-03 16:42] VITALS: RESP 18; TEMP 97.7
[2023-09-03 20:07] VITALS: BP 107/71; PULSE 89; RESP 18; TEMP 97.5
[2023-09-03] MEDS: MELATONIN 5 MG TABLET PO SCH (21:02)
[2023-09-03] MEDS: DUTASTERIDE 0.5 MG CAPSULE PO SCH (21:02)
[2023-09-03] MEDS: BISACODYL 5 MG EC TABLET PO SCH (21:03)
[2023-09-03] MEDS: GLYCOPYRROLATE 1 MG TABLET PO SCH (21:03)
[2023-09-03] MEDS: TAMSULOSIN HCL 0.4 MG CAPSULE PO SCH (21:03)
[2023-09-03 21:11] LABS: GLUCOMETER DEV NAME(LOC) 3E.C; GLUCOSE,POINT OF CARE 295 MG/DL (70-110)
[2023-09-04 00:08] VITALS: RESP 18
[2023-09-04 04:42] VITALS: RESP 18
[2023-09-04] MEDS: NICOTINE POLACRILEX 4 MG LOZENGE PO PRN ×5 (06:17→20:43)
[2023-09-04 06:26] LABS: GLUCOMETER DEV NAME(LOC) 3E.C; GLUCOSE,POINT OF CARE 258 MG/DL (70-110)
[2023-09-04] MEDS: MetFORMIN HCL 500 MG TABLET PO SCH ×2 (07:03→16:23)
[2023-09-04] MEDS: INSULIN LISPRO 100 UNITS/ML SQ PRN ×4 (07:05→20:47)
[2023-09-04 08:16] VITALS: BP 135/71; PULSE 88; RESP 18; TEMP 97.2
[2023-09-04] MEDS: OMEGA-3/DHA/EPA/FISH OIL 1,000 MG CAPSULE PO SCH (09:29)
[2023-09-04] MEDS: DIVALPROEX SODIUM 500 MG ER TABLET PO SCH ×3 (09:29→16:23)
[2023-09-04] MEDS: DOCUSATE SODIUM 250 MG CAPSULE PO SCH ×4 (09:29→20:42)
[2023-09-04] MEDS: LevETIRAcetam 500 MG TABLET PO SCH ×4 (09:30→20:41)
[2023-09-04] MEDS: CloZAPine 100 MG TABLET PO SCH ×4 (09:30→20:42)
[2023-09-04] MEDS: TOPIRAMATE 100 MG TABLET PO SCH ×3 (09:30→16:24)
[2023-09-04 11:31] LABS: GLUCOMETER DEV NAME(LOC) 3E.C; GLUCOSE,POINT OF CARE 243 MG/DL (70-110)
[2023-09-04 13:07] VITALS: RESP 18; TEMP 98.3
[2023-09-04 16:14] VITALS: RESP 17; TEMP 97.8
[2023-09-04 17:36] LABS: GLUCOMETER DEV NAME(LOC) 3E.C; GLUCOSE,POINT OF CARE 276 MG/DL (70-110)
[2023-09-04 20:22] VITALS: BP 102/72; PULSE 95; RESP 18; TEMP 97.3
[2023-09-04] MEDS: TAMSULOSIN HCL 0.4 MG CAPSULE PO SCH (20:41)
[2023-09-04] MEDS: DUTASTERIDE 0.5 MG CAPSULE PO SCH (20:41)
[2023-09-04] MEDS: BISACODYL 5 MG EC TABLET PO SCH (20:42)
[2023-09-04] MEDS: MELATONIN 5 MG TABLET PO SCH (20:42)
[2023-09-04] MEDS: GLYCOPYRROLATE 1 MG TABLET PO SCH (20:42)
[2023-09-04] MEDS: ZOLPIDEM TARTRATE 10 MG TABLET PO PRN (21:07)
[2023-09-04 21:21] LABS: GLUCOMETER DEV NAME(LOC) 3E.C; GLUCOSE,POINT OF CARE 141 MG/DL (70-110)
[2023-09-05 00:10] VITALS: RESP 18
[2023-09-05] MEDS: MAG HYDROX/ALUMINUM HYD/SIMETH ES 30 ML SUSPENSION UDCUP PO PRN (02:45)
[2023-09-05 04:32] VITALS: RESP 18
[2023-09-05] MEDS: NICOTINE POLACRILEX 4 MG LOZENGE PO PRN ×6 (06:14→21:07)
[2023-09-05] MEDS: MetFORMIN HCL 500 MG TABLET PO SCH ×2 (06:39→18:08)
[2023-09-05] MEDS: INSULIN LISPRO 100 UNITS/ML SQ PRN ×4 (06:44→21:15)
[2023-09-05 06:56] LABS: GLUCOMETER DEV NAME(LOC) 3E.C; GLUCOSE,POINT OF CARE 310 MG/DL (70-110)
[2023-09-05 08:24] VITALS: BP 105/69; PULSE 103; RESP 18; TEMP 97.5
[2023-09-05] MEDS: CloZAPine 100 MG TABLET PO SCH ×4 (10:19→21:05)
[2023-09-05] MEDS: TOPIRAMATE 100 MG TABLET PO SCH ×3 (10:19→18:08)
[2023-09-05] MEDS: DIVALPROEX SODIUM 500 MG ER TABLET PO SCH ×3 (10:19→18:08)
[2023-09-05] MEDS: OMEGA-3/DHA/EPA/FISH OIL 1,000 MG CAPSULE PO SCH (10:19)
[2023-09-05] MEDS: LevETIRAcetam 500 MG TABLET PO SCH ×4 (10:19→21:06)
[2023-09-05] MEDS: DOCUSATE SODIUM 250 MG CAPSULE PO SCH ×4 (10:21→21:07)
[2023-09-05 11:11] LABS: GLUCOMETER DEV NAME(LOC) 3E.C; GLUCOSE,POINT OF CARE 136 MG/DL (70-110)
[2023-09-05 13:27] VITALS: RESP 18; TEMP 97.4
[2023-09-05 16:52] VITALS: RESP 18; TEMP 97.6
[2023-09-05 18:01] LABS: GLUCOMETER DEV NAME(LOC) 3E.C; GLUCOSE,POINT OF CARE 300 MG/DL (70-110)
[2023-09-05 20:10] VITALS: BP 105/61; PULSE 94; RESP 18; TEMP 97.2
[2023-09-05 20:46] LABS: GLUCOMETER DEV NAME(LOC) 3E.C; GLUCOSE,POINT OF CARE 351 MG/DL (70-110)
[2023-09-05] MEDS: DUTASTERIDE 0.5 MG CAPSULE PO SCH (21:05)
[2023-09-05] MEDS: MELATONIN 5 MG TABLET PO SCH (21:05)
[2023-09-05] MEDS: TAMSULOSIN HCL 0.4 MG CAPSULE PO SCH (21:05)
[2023-09-05] MEDS: BISACODYL 5 MG EC TABLET PO SCH (21:06)
[2023-09-05] MEDS: GLYCOPYRROLATE 1 MG TABLET PO SCH (21:06)
[2023-09-06 00:04] VITALS: RESP 18
[2023-09-06 04:08] VITALS: RESP 18
[2023-09-06 06:31] LABS: GLUCOMETER DEV NAME(LOC) 3E.C; GLUCOSE,POINT OF CARE 223 MG/DL (70-110)
[2023-09-06] MEDS: MetFORMIN HCL 500 MG TABLET PO SCH ×2 (06:59→16:22)
[2023-09-06] MEDS: INSULIN LISPRO 100 UNITS/ML SQ PRN ×4 (07:02→21:15)
[2023-09-06 08:00] VITALS: RESP 17; TEMP 97.5
[2023-09-06] MEDS: DOCUSATE SODIUM 250 MG CAPSULE PO SCH ×4 (09:15→20:35)
[2023-09-06] MEDS: TOPIRAMATE 100 MG TABLET PO SCH ×3 (09:15→16:22)
[2023-09-06] MEDS: OMEGA-3/DHA/EPA/FISH OIL 1,000 MG CAPSULE PO SCH (09:15)
[2023-09-06] MEDS: CloZAPine 100 MG TABLET PO SCH ×4 (09:16→20:35)
[2023-09-06] MEDS: LevETIRAcetam 500 MG TABLET PO SCH ×4 (09:16→20:35)
[2023-09-06] MEDS: DIVALPROEX SODIUM 500 MG ER TABLET PO SCH ×3 (09:16→16:23)
[2023-09-06] MEDS: MAG HYDROX/ALUMINUM HYD/SIMETH ES 30 ML SUSPENSION UDCUP PO PRN (11:20)
[2023-09-06 11:31] LABS: GLUCOMETER DEV NAME(LOC) 3E.C; GLUCOSE,POINT OF CARE 134 MG/DL (70-110)
[2023-09-06 12:00] VITALS: BP 107/74; PULSE 91; RESP 18; TEMP 96.5
[2023-09-06] MEDS: NICOTINE POLACRILEX 4 MG LOZENGE PO PRN ×3 (12:12→21:54)
[2023-09-06 16:00] VITALS: RESP 17; TEMP 97.5
[2023-09-06 16:56] LABS: GLUCOMETER DEV NAME(LOC) 3E.C; GLUCOSE,POINT OF CARE 186 MG/DL (70-110)
[2023-09-06] MEDS: GLYCOPYRROLATE 1 MG TABLET PO SCH (20:35)
[2023-09-06] MEDS: MELATONIN 5 MG TABLET PO SCH (20:35)
[2023-09-06] MEDS: TAMSULOSIN HCL 0.4 MG CAPSULE PO SCH (20:35)
[2023-09-06] MEDS: BISACODYL 5 MG EC TABLET PO SCH (20:35)
[2023-09-06] MEDS: DUTASTERIDE 0.5 MG CAPSULE PO SCH (20:35)
[2023-09-06 20:41] VITALS: BP 110/80; PULSE 75; RESP 18; TEMP 97.7
[2023-09-06 21:06] LABS: GLUCOMETER DEV NAME(LOC) 3E.C; GLUCOSE,POINT OF CARE 292 MG/DL (70-110)
[2023-09-07 00:54] VITALS: RESP 18
[2023-09-07 05:05] VITALS: RESP 18
[2023-09-07] MEDS: MetFORMIN HCL 500 MG TABLET PO SCH ×2 (06:38→17:25)
[2023-09-07] MEDS: INSULIN LISPRO 100 UNITS/ML SQ PRN ×4 (06:38→21:33)
[2023-09-07 06:41] LABS: GLUCOMETER DEV NAME(LOC) 3E.C; GLUCOSE,POINT OF CARE 251 MG/DL (70-110)
[2023-09-07] MEDS: CloZAPine 100 MG TABLET PO SCH ×4 (09:14→21:29)
[2023-09-07] MEDS: OMEGA-3/DHA/EPA/FISH OIL 1,000 MG CAPSULE PO SCH (09:14)
[2023-09-07] MEDS: DIVALPROEX SODIUM 500 MG ER TABLET PO SCH ×3 (09:14→17:25)
[2023-09-07] MEDS: DOCUSATE SODIUM 250 MG CAPSULE PO SCH ×4 (09:14→21:30)
[2023-09-07] MEDS: TOPIRAMATE 100 MG TABLET PO SCH ×3 (09:14→17:26)
[2023-09-07] MEDS: NICOTINE POLACRILEX 4 MG LOZENGE PO PRN ×4 (09:14→21:30)
[2023-09-07] MEDS: LevETIRAcetam 500 MG TABLET PO SCH ×4 (09:16→21:29)
[2023-09-07 09:41] VITALS: RESP 18; TEMP 97.1
[2023-09-07 12:16] LABS: GLUCOMETER DEV NAME(LOC) 3E.C; GLUCOSE,POINT OF CARE 219 MG/DL (70-110)
[2023-09-07 13:04] VITALS: BP 97/69; PULSE 85; RESP 18; TEMP 97.1
[2023-09-07 18:01] LABS: GLUCOMETER DEV NAME(LOC) 3E.C; GLUCOSE,POINT OF CARE 153 MG/DL (70-110)
[2023-09-07 18:04] VITALS: BP 101/73; PULSE 98; RESP 20; TEMP 96.7
[2023-09-07 20:30] VITALS: RESP 18; TEMP 97.6
[2023-09-07 21:26] LABS: GLUCOMETER DEV NAME(LOC) 3E.C; GLUCOSE,POINT OF CARE 181 MG/DL (70-110)
[2023-09-07] MEDS: TAMSULOSIN HCL 0.4 MG CAPSULE PO SCH (21:29)
[2023-09-07] MEDS: GLYCOPYRROLATE 1 MG TABLET PO SCH (21:29)
[2023-09-07] MEDS: MELATONIN 5 MG TABLET PO SCH (21:29)
[2023-09-07] MEDS: BISACODYL 5 MG EC TABLET PO SCH (21:30)
[2023-09-07] MEDS: DUTASTERIDE 0.5 MG CAPSULE PO SCH (21:30)
[2023-09-08] VITALS (7 sets, daily range): BP systolic 105–136; BP diastolic 68–91; PULSE 78–88; RESP 18–19; TEMP 96.8–97.6
[2023-09-08] MEDS: NICOTINE POLACRILEX 4 MG LOZENGE PO PRN ×6 (03:37→20:56)
[2023-09-08 06:36] LABS: GLUCOMETER DEV NAME(LOC) 3E.C; GLUCOSE,POINT OF CARE 230 MG/DL (70-110)
[2023-09-08] MEDS: INSULIN LISPRO 100 UNITS/ML SQ PRN ×4 (07:02→21:18)
[2023-09-08] MEDS: MetFORMIN HCL 500 MG TABLET PO SCH ×2 (07:03→17:19)
[2023-09-08 07:49] LABS: BASOPHILS % (AUTO) 0.7 % (0.0-2.0); EOSINOPHILS % (AUTO) 1.9 % (1.0-6.0); HEMATOCRIT 46.3 % (41-53); HEMOGLOBIN 15.3 g/dL (13.5-17.5); LYMPHOCYTES # (AUTO) 2.4 K/uL (1.0-4.8); MEAN CORPUSCULAR HEMOGLOBIN 29.4 pg (26.0-34.0); MEAN CORPUSCULAR HGB CONC 33.1 G/dL (31.0-37.0); MEAN CORPUSCULAR VOLUME 89 fL (80-100); MONOCYTES # (AUTO) 0.4 K/uL (0.1-1.0); MONOCYTES % (AUTO) 6.8 % (2.0-9.0); NEUTROPHILS # (AUTO) 3.1 K/uL (1.8-7.7); NEUTROPHILS % (AUTO) 50.6 % (40.0-70.0); PLATELET COUNT (AUTO) 262 K/uL (150-450); RED BLOOD CELL COUNT(AUTO) 5.21 MIL/uL (4.50-5.90); RED CELL DISTRIBUTION WIDTH 15.1 % (11.5-14.5); WHITE BLOOD COUNT (AUTO) 6.1 K/uL (4.5-11.0)
[2023-09-08] MEDS: LevETIRAcetam 500 MG TABLET PO SCH ×4 (09:28→20:56)
[2023-09-08] MEDS: CloZAPine 100 MG TABLET PO SCH ×4 (09:28→20:55)
[2023-09-08] MEDS: OMEGA-3/DHA/EPA/FISH OIL 1,000 MG CAPSULE PO SCH (09:28)
[2023-09-08] MEDS: DIVALPROEX SODIUM 500 MG ER TABLET PO SCH ×3 (09:28→17:19)
[2023-09-08] MEDS: TOPIRAMATE 100 MG TABLET PO SCH ×3 (09:29→17:20)
[2023-09-08] MEDS: DOCUSATE SODIUM 250 MG CAPSULE PO SCH ×4 (09:31→21:14)
[2023-09-08 12:21] LABS: GLUCOMETER DEV NAME(LOC) 3E.C; GLUCOSE,POINT OF CARE 211 MG/DL (70-110)
[2023-09-08] MEDS: MAG HYDROX/ALUMINUM HYD/SIMETH ES 30 ML SUSPENSION UDCUP PO PRN (17:47)
[2023-09-08 17:56] LABS: GLUCOMETER DEV NAME(LOC) 3E.C; GLUCOSE,POINT OF CARE 222 MG/DL (70-110)
[2023-09-08 20:36] LABS: GLUCOMETER DEV NAME(LOC) 3E.C; GLUCOSE,POINT OF CARE 316 MG/DL (70-110)
[2023-09-08] MEDS: GLYCOPYRROLATE 1 MG TABLET PO SCH (20:55)
[2023-09-08] MEDS: MELATONIN 5 MG TABLET PO SCH (20:56)
[2023-09-08] MEDS: DUTASTERIDE 0.5 MG CAPSULE PO SCH (20:56)
[2023-09-08] MEDS: TAMSULOSIN HCL 0.4 MG CAPSULE PO SCH (20:56)
[2023-09-08] MEDS: BISACODYL 5 MG EC TABLET PO SCH (20:56)
[2023-09-09 00:09] VITALS: RESP 18; TEMP 97.4
[2023-09-09 05:36] VITALS: RESP 18; TEMP 98.2
[2023-09-09] MEDS: INSULIN LISPRO 100 UNITS/ML SQ PRN ×4 (06:34→21:08)
[2023-09-09 06:36] LABS: GLUCOMETER DEV NAME(LOC) 3E.C; GLUCOSE,POINT OF CARE 236 MG/DL (70-110)
[2023-09-09] MEDS: MetFORMIN HCL 500 MG TABLET PO SCH ×2 (06:53→17:13)
[2023-09-09] MEDS: OMEGA-3/DHA/EPA/FISH OIL 1,000 MG CAPSULE PO SCH (09:00)
[2023-09-09] MEDS: LevETIRAcetam 500 MG TABLET PO SCH ×4 (09:00→20:56)
[2023-09-09] MEDS: DIVALPROEX SODIUM 500 MG ER TABLET PO SCH ×3 (09:00→17:13)
[2023-09-09] MEDS: CloZAPine 100 MG TABLET PO SCH ×4 (09:00→20:56)
[2023-09-09] MEDS: DOCUSATE SODIUM 250 MG CAPSULE PO SCH ×4 (09:01→20:57)
[2023-09-09] MEDS: TOPIRAMATE 100 MG TABLET PO SCH ×3 (09:01→17:13)
[2023-09-09] MEDS: NICOTINE POLACRILEX 4 MG LOZENGE PO PRN ×5 (09:01→20:57)
[2023-09-09 09:43] VITALS: BP 108/71; PULSE 91; RESP 18; TEMP 97.2
[2023-09-09 11:56] LABS: GLUCOMETER DEV NAME(LOC) 3E.C; GLUCOSE,POINT OF CARE 317 MG/DL (70-110)
[2023-09-09 12:27] VITALS: RESP 18; TEMP 98.2
[2023-09-09 16:41] LABS: GLUCOMETER DEV NAME(LOC) 3E.C; GLUCOSE,POINT OF CARE 269 MG/DL (70-110)
[2023-09-09 18:59] VITALS: RESP 18; TEMP 98
[2023-09-09 20:15] VITALS: BP 104/76; PULSE 95; RESP 18; TEMP 97.7
[2023-09-09 20:45] LABS: GLUCOMETER DEV NAME(LOC) 3E.C; GLUCOSE,POINT OF CARE 155 MG/DL (70-110)
[2023-09-09] MEDS: BISACODYL 5 MG EC TABLET PO SCH (20:56)
[2023-09-09] MEDS: DUTASTERIDE 0.5 MG CAPSULE PO SCH (20:56)
[2023-09-09] MEDS: TAMSULOSIN HCL 0.4 MG CAPSULE PO SCH (20:56)
[2023-09-09] MEDS: GLYCOPYRROLATE 1 MG TABLET PO SCH (20:56)
[2023-09-09] MEDS: MELATONIN 5 MG TABLET PO SCH (20:57)
[2023-09-10] MEDS: NICOTINE POLACRILEX 4 MG LOZENGE PO PRN ×7 (00:35→20:58)
[2023-09-10 04:45] VITALS: RESP 18; TEMP 98.2
[2023-09-10 06:21] LABS: GLUCOMETER DEV NAME(LOC) 3E.C; GLUCOSE,POINT OF CARE 214 MG/DL (70-110)
[2023-09-10] MEDS: INSULIN LISPRO 100 UNITS/ML SQ PRN ×3 (06:35→21:54)
[2023-09-10] MEDS: MetFORMIN HCL 500 MG TABLET PO SCH ×2 (06:36→17:34)
[2023-09-10] MEDS: CloZAPine 100 MG TABLET PO SCH ×4 (09:39→20:57)
[2023-09-10] MEDS: OMEGA-3/DHA/EPA/FISH OIL 1,000 MG CAPSULE PO SCH (09:39)
[2023-09-10] MEDS: DIVALPROEX SODIUM 500 MG ER TABLET PO SCH ×3 (09:39→17:34)
[2023-09-10] MEDS: LevETIRAcetam 500 MG TABLET PO SCH ×4 (09:39→20:57)
[2023-09-10] MEDS: TOPIRAMATE 100 MG TABLET PO SCH ×3 (09:40→17:34)
[2023-09-10 09:41] LABS: COVID AG,FIA SOURCE NASAL SWAB
[2023-09-10] MEDS: DOCUSATE SODIUM 250 MG CAPSULE PO SCH ×4 (09:41→20:58)
[2023-09-10 09:43] VITALS: RESP 18
[2023-09-10 10:27] LABS: SARS-COV2 (COVID) ANTIGEN,FIA Negative (Negative)
[2023-09-10 11:26] LABS: GLUCOMETER DEV NAME(LOC) 3E.C; GLUCOSE,POINT OF CARE 233 MG/DL (70-110)
[2023-09-10 13:19] VITALS: BP 122/80; PULSE 88; RESP 18; TEMP 98.6
[2023-09-10 16:36] VITALS: RESP 18; TEMP 98.6
[2023-09-10 17:01] LABS: GLUCOMETER DEV NAME(LOC) 3E.C; GLUCOSE,POINT OF CARE 224 MG/DL (70-110)
[2023-09-10 20:50] VITALS: BP 115/74; PULSE 81; RESP 18; TEMP 98.2
[2023-09-10] MEDS: MELATONIN 5 MG TABLET PO SCH (20:57)
[2023-09-10] MEDS: DUTASTERIDE 0.5 MG CAPSULE PO SCH (20:57)
[2023-09-10] MEDS: GLYCOPYRROLATE 1 MG TABLET PO SCH (20:57)
[2023-09-10] MEDS: BISACODYL 5 MG EC TABLET PO SCH (20:57)
[2023-09-10] MEDS: TAMSULOSIN HCL 0.4 MG CAPSULE PO SCH (20:58)
[2023-09-10 22:06] LABS: GLUCOMETER DEV NAME(LOC) 3E.C; GLUCOSE,POINT OF CARE 269 MG/DL (70-110)
[2023-09-11 01:09] VITALS: RESP 18
[2023-09-11 05:39] VITALS: RESP 18
[2023-09-11 06:35] LABS: GLUCOMETER DEV NAME(LOC) 3E.C; GLUCOSE,POINT OF CARE 185 MG/DL (70-110)
[2023-09-11] MEDS: MetFORMIN HCL 500 MG TABLET PO SCH ×2 (06:48→17:36)
[2023-09-11] MEDS: INSULIN LISPRO 100 UNITS/ML SQ PRN ×3 (06:49→23:09)
[2023-09-11 08:00] VITALS: BP 97/78; PULSE 93; RESP 20; TEMP 97.3
[2023-09-11] MEDS: NICOTINE POLACRILEX 4 MG LOZENGE PO PRN ×6 (08:56→21:34)
[2023-09-11] MEDS: TOPIRAMATE 100 MG TABLET PO SCH ×3 (08:56→17:36)
[2023-09-11] MEDS: CloZAPine 100 MG TABLET PO SCH ×4 (08:59→20:44)
[2023-09-11] MEDS: OMEGA-3/DHA/EPA/FISH OIL 1,000 MG CAPSULE PO SCH (08:59)
[2023-09-11] MEDS: LevETIRAcetam 500 MG TABLET PO SCH ×4 (08:59→20:45)
[2023-09-11] MEDS: DIVALPROEX SODIUM 500 MG ER TABLET PO SCH ×3 (09:00→17:36)
[2023-09-11] MEDS: DOCUSATE SODIUM 250 MG CAPSULE PO SCH ×4 (09:02→20:45)
[2023-09-11 12:30] LABS: GLUCOMETER DEV NAME(LOC) 3E.C; GLUCOSE,POINT OF CARE 315 MG/DL (70-110)
[2023-09-11] MEDS: MAG HYDROX/ALUMINUM HYD/SIMETH ES 30 ML SUSPENSION UDCUP PO PRN ×2 (16:20→22:41)
[2023-09-11 17:26] LABS: GLUCOMETER DEV NAME(LOC) 3E.C; GLUCOSE,POINT OF CARE 137 MG/DL (70-110)
[2023-09-11 20:12] VITALS: BP 112/72; PULSE 102; RESP 18; TEMP 97.6
[2023-09-11 20:16] LABS: GLUCOMETER DEV NAME(LOC) 3E.C; GLUCOSE,POINT OF CARE 213 MG/DL (70-110)
[2023-09-11] MEDS: BISACODYL 5 MG EC TABLET PO SCH (20:44)
[2023-09-11] MEDS: DUTASTERIDE 0.5 MG CAPSULE PO SCH (20:44)
[2023-09-11] MEDS: TAMSULOSIN HCL 0.4 MG CAPSULE PO SCH (20:45)
[2023-09-11] MEDS: GLYCOPYRROLATE 1 MG TABLET PO SCH (20:45)
[2023-09-11] MEDS: MELATONIN 5 MG TABLET PO SCH (20:45)
[2023-09-12 06:26] LABS: GLUCOMETER DEV NAME(LOC) 3E.C; GLUCOSE,POINT OF CARE 238 MG/DL (70-110)
[2023-09-12] MEDS: MetFORMIN HCL 500 MG TABLET PO SCH ×2 (06:46→17:29)
[2023-09-12] MEDS: INSULIN LISPRO 100 UNITS/ML SQ PRN ×2 (06:51→22:48)
[2023-09-12] MEDS: NICOTINE POLACRILEX 4 MG LOZENGE PO PRN ×5 (09:42→22:49)
[2023-09-12] MEDS: DOCUSATE SODIUM 250 MG CAPSULE PO SCH ×4 (09:42→20:47)
[2023-09-12] MEDS: OMEGA-3/DHA/EPA/FISH OIL 1,000 MG CAPSULE PO SCH (09:42)
[2023-09-12] MEDS: CloZAPine 100 MG TABLET PO SCH ×4 (09:42→20:46)
[2023-09-12] MEDS: DIVALPROEX SODIUM 500 MG ER TABLET PO SCH ×3 (09:42→17:29)
[2023-09-12] MEDS: LevETIRAcetam 500 MG TABLET PO SCH ×4 (09:42→20:48)
[2023-09-12] MEDS: TOPIRAMATE 100 MG TABLET PO SCH ×3 (09:43→17:30)
[2023-09-12 09:58] VITALS: BP 114/74; PULSE 88; RESP 17; TEMP 97.6
[2023-09-12 11:21] LABS: GLUCOMETER DEV NAME(LOC) 3E.C; GLUCOSE,POINT OF CARE 202 MG/DL (70-110)
[2023-09-12 16:46] LABS: GLUCOMETER DEV NAME(LOC) 3E.C; GLUCOSE,POINT OF CARE 86 MG/DL (70-110)
[2023-09-12 19:51] LABS: GLUCOMETER DEV NAME(LOC) 3E.C; GLUCOSE,POINT OF CARE 194 MG/DL (70-110)
[2023-09-12 20:45] VITALS: BP 103/66; PULSE 104; RESP 19; TEMP 98
[2023-09-12] MEDS: DUTASTERIDE 0.5 MG CAPSULE PO SCH (20:46)
[2023-09-12] MEDS: GLYCOPYRROLATE 1 MG TABLET PO SCH (20:47)
[2023-09-12] MEDS: MELATONIN 5 MG TABLET PO SCH (20:47)
[2023-09-12] MEDS: TAMSULOSIN HCL 0.4 MG CAPSULE PO SCH (20:47)
[2023-09-12] MEDS: BISACODYL 5 MG EC TABLET PO SCH (20:47)
[2023-09-13 06:27] LABS: GLUCOMETER DEV NAME(LOC) 3E.C; GLUCOSE,POINT OF CARE 270 MG/DL (70-110)
[2023-09-13] MEDS: MetFORMIN HCL 500 MG TABLET PO SCH ×2 (06:47→16:56)
[2023-09-13] MEDS: INSULIN LISPRO 100 UNITS/ML SQ PRN ×4 (06:48→21:44)
[2023-09-13] MEDS: LevETIRAcetam 500 MG TABLET PO SCH ×4 (08:56→20:46)
[2023-09-13] MEDS: OMEGA-3/DHA/EPA/FISH OIL 1,000 MG CAPSULE PO SCH (08:57)
[2023-09-13] MEDS: DIVALPROEX SODIUM 500 MG ER TABLET PO SCH ×3 (08:58→16:56)
[2023-09-13] MEDS: DOCUSATE SODIUM 250 MG CAPSULE PO SCH ×4 (08:58→20:48)
[2023-09-13] MEDS: TOPIRAMATE 100 MG TABLET PO SCH ×3 (08:58→16:58)
[2023-09-13] MEDS: CloZAPine 100 MG TABLET PO SCH ×4 (08:58→20:46)
[2023-09-13] MEDS: NICOTINE POLACRILEX 4 MG LOZENGE PO PRN ×5 (09:00→20:46)
[2023-09-13 11:46] LABS: GLUCOMETER DEV NAME(LOC) 3E.C; GLUCOSE,POINT OF CARE 203 MG/DL (70-110)
[2023-09-13 15:01] VITALS: BP 113/71; PULSE 94; TEMP 98.1
[2023-09-13 17:21] LABS: GLUCOMETER DEV NAME(LOC) 3E.C; GLUCOSE,POINT OF CARE 75 MG/DL (70-110)
[2023-09-13 20:31] LABS: GLUCOMETER DEV NAME(LOC) 3E.C; GLUCOSE,POINT OF CARE 207 MG/DL (70-110)
[2023-09-13] MEDS: GLYCOPYRROLATE 1 MG TABLET PO SCH (20:45)
[2023-09-13] MEDS: BISACODYL 5 MG EC TABLET PO SCH (20:46)
[2023-09-13] MEDS: TAMSULOSIN HCL 0.4 MG CAPSULE PO SCH (20:46)
[2023-09-13] MEDS: DUTASTERIDE 0.5 MG CAPSULE PO SCH (20:47)
[2023-09-13 21:09] VITALS: BP 118/73; PULSE 77; RESP 18; TEMP 98.1
[2023-09-13] MEDS: MELATONIN 5 MG TABLET PO SCH (21:17)
[2023-09-14] MEDS: NICOTINE POLACRILEX 4 MG LOZENGE PO PRN ×7 (00:03→20:14)
[2023-09-14 06:26] LABS: GLUCOMETER DEV NAME(LOC) 3E.C; GLUCOSE,POINT OF CARE 239 MG/DL (70-110)
[2023-09-14] MEDS: INSULIN LISPRO 100 UNITS/ML SQ PRN ×5 (06:36→21:35)
[2023-09-14] MEDS: MetFORMIN HCL 500 MG TABLET PO SCH ×2 (06:53→16:41)
[2023-09-14] MEDS: DIVALPROEX SODIUM 500 MG ER TABLET PO SCH ×3 (08:05→16:42)
[2023-09-14] MEDS: DOCUSATE SODIUM 250 MG CAPSULE PO SCH ×4 (08:05→20:31)
[2023-09-14] MEDS: OMEGA-3/DHA/EPA/FISH OIL 1,000 MG CAPSULE PO SCH (08:05)
[2023-09-14] MEDS: CloZAPine 100 MG TABLET PO SCH ×4 (08:05→20:31)
[2023-09-14] MEDS: TOPIRAMATE 100 MG TABLET PO SCH ×3 (08:06→16:42)
[2023-09-14] MEDS: LevETIRAcetam 500 MG TABLET PO SCH ×4 (08:06→20:32)
[2023-09-14 08:20] VITALS: BP 106/72; PULSE 87; RESP 18; TEMP 97.7
[2023-09-14] MEDS: MAG HYDROX/ALUMINUM HYD/SIMETH ES 30 ML SUSPENSION UDCUP PO PRN (11:35)
[2023-09-14 11:51] LABS: GLUCOMETER DEV NAME(LOC) 3E.C; GLUCOSE,POINT OF CARE 121 MG/DL (70-110)
[2023-09-14 17:46] LABS: GLUCOMETER DEV NAME(LOC) 3E.C; GLUCOSE,POINT OF CARE 123 MG/DL (70-110)
[2023-09-14 20:20] LABS: GLUCOMETER DEV NAME(LOC) 3E.C; GLUCOSE,POINT OF CARE 198 MG/DL (70-110)
[2023-09-14] MEDS: DUTASTERIDE 0.5 MG CAPSULE PO SCH (20:31)
[2023-09-14] MEDS: BISACODYL 5 MG EC TABLET PO SCH (20:31)
[2023-09-14] MEDS: TAMSULOSIN HCL 0.4 MG CAPSULE PO SCH (20:31)
[2023-09-14] MEDS: MELATONIN 5 MG TABLET PO SCH (20:31)
[2023-09-14] MEDS: GLYCOPYRROLATE 1 MG TABLET PO SCH (20:31)
[2023-09-14 21:45] VITALS: BP 110/73; PULSE 93; RESP 17; TEMP 96.5
[2023-09-15 05:06] LABS: CLOZAPINE & NORCLOZAPINE 246 ng/mL; NORCLOZAPINE 76 ng/mL (Not Estab.)
[2023-09-15] MEDS: NICOTINE POLACRILEX 4 MG LOZENGE PO PRN ×8 (06:34→22:01)
[2023-09-15] MEDS: MetFORMIN HCL 500 MG TABLET PO SCH ×2 (06:34→17:12)
[2023-09-15] MEDS: INSULIN LISPRO 100 UNITS/ML SQ PRN ×4 (06:58→21:05)
[2023-09-15 07:01] LABS: GLUCOMETER DEV NAME(LOC) 3E.C; GLUCOSE,POINT OF CARE 186 MG/DL (70-110)
[2023-09-15] MEDS: OMEGA-3/DHA/EPA/FISH OIL 1,000 MG CAPSULE PO SCH (08:23)
[2023-09-15] MEDS: DOCUSATE SODIUM 250 MG CAPSULE PO SCH ×4 (08:23→20:30)
[2023-09-15] MEDS: DIVALPROEX SODIUM 500 MG ER TABLET PO SCH ×3 (08:24→17:12)
[2023-09-15] MEDS: LevETIRAcetam 500 MG TABLET PO SCH ×4 (08:24→20:29)
[2023-09-15] MEDS: CloZAPine 100 MG TABLET PO SCH ×4 (08:24→20:29)
[2023-09-15] MEDS: TOPIRAMATE 100 MG TABLET PO SCH ×3 (08:25→17:12)
[2023-09-15] MEDS ORDERED: MELA5TAB40 PO (11:27)
[2023-09-15] MEDS ORDERED: LEVE500T8 PO (11:27)
[2023-09-15] MEDS ORDERED: DIVA500T69 PO (11:27)
[2023-09-15] MEDS ORDERED: CLOZ100T61 PO ×2 (11:27)
[2023-09-15] MEDS ORDERED: OMEG-135 PO (11:27)
[2023-09-15] MEDS ORDERED: GLYC1TAB27 PO (11:27)
[2023-09-15] MEDS ORDERED: TOPI100T37 PO (11:27)
[2023-09-15] MEDS: MAG HYDROX/ALUMINUM HYD/SIMETH ES 30 ML SUSPENSION UDCUP PO PRN (11:33)
[2023-09-15 11:43] VITALS: BP 106/76; PULSE 98; RESP 18; TEMP 97.5
[2023-09-15 14:06] LABS: CLOZAPINE & NORCLOZAPINE 243 ng/mL; NORCLOZAPINE 80 ng/mL (Not Estab.)
[2023-09-15 16:01] LABS: GLUCOMETER DEV NAME(LOC) 3E.C; GLUCOSE,POINT OF CARE 190 MG/DL (70-110)
[2023-09-15 17:26] LABS: GLUCOMETER DEV NAME(LOC) 3E.C; GLUCOSE,POINT OF CARE 105 MG/DL (70-110)
[2023-09-15] MEDS: MELATONIN 5 MG TABLET PO SCH (20:29)
[2023-09-15] MEDS: DUTASTERIDE 0.5 MG CAPSULE PO SCH (20:29)
[2023-09-15] MEDS: BISACODYL 5 MG EC TABLET PO SCH (20:29)
[2023-09-15] MEDS: GLYCOPYRROLATE 1 MG TABLET PO SCH (20:30)
[2023-09-15] MEDS: TAMSULOSIN HCL 0.4 MG CAPSULE PO SCH (20:30)
[2023-09-15 20:31] LABS: GLUCOMETER DEV NAME(LOC) 3E.C; GLUCOSE,POINT OF CARE 272 MG/DL (70-110)
[2023-09-15 21:47] VITALS: BP 113/71; PULSE 95; RESP 18; TEMP 97.8
[2023-09-16] MEDS: NICOTINE POLACRILEX 4 MG LOZENGE PO PRN ×4 (05:18→13:10)
[2023-09-16 05:31] LABS: GLUCOMETER DEV NAME(LOC) 3E.C; GLUCOSE,POINT OF CARE 171 MG/DL (70-110)
[2023-09-16] MEDS: INSULIN LISPRO 100 UNITS/ML SQ PRN ×2 (06:34→11:45)
[2023-09-16] MEDS: MetFORMIN HCL 500 MG TABLET PO SCH (06:37)
[2023-09-16 07:22] LABS: BASOPHILS % (AUTO) 1.1 % (0.0-2.0); EOSINOPHILS % (AUTO) 1.3 % (1.0-6.0); HEMATOCRIT 39.8 % (41-53); HEMOGLOBIN 13.2 g/dL (13.5-17.5); LYMPHOCYTES # (AUTO) 1.9 K/uL (1.0-4.8); LYMPHOCYTES % (AUTO) 37.8 % (22.0-44.0); MEAN CORPUSCULAR HEMOGLOBIN 29.8 pg (26.0-34.0); MEAN CORPUSCULAR HGB CONC 33.2 G/dL (31.0-37.0); MEAN CORPUSCULAR VOLUME 90 fL (80-100); MONOCYTES # (AUTO) 0.5 K/uL (0.1-1.0); MONOCYTES % (AUTO) 10.4 % (2.0-9.0); NEUTROPHILS # (AUTO) 2.4 K/uL (1.8-7.7); NEUTROPHILS % (AUTO) 49.4 % (40.0-70.0); PLATELET COUNT (AUTO) 318 K/uL (150-450); RED BLOOD CELL COUNT(AUTO) 4.42 MIL/uL (4.50-5.90); RED CELL DISTRIBUTION WIDTH 15.4 % (11.5-14.5); WHITE BLOOD COUNT (AUTO) 4.9 K/uL (4.5-11.0)
[2023-09-16] MEDS: OMEGA-3/DHA/EPA/FISH OIL 1,000 MG CAPSULE PO SCH (08:48)
[2023-09-16] MEDS: LevETIRAcetam 500 MG TABLET PO SCH ×2 (08:48→13:10)
[2023-09-16] MEDS: DIVALPROEX SODIUM 500 MG ER TABLET PO SCH ×2 (08:48→13:10)
[2023-09-16] MEDS: DOCUSATE SODIUM 250 MG CAPSULE PO SCH ×2 (08:48→13:09)
[2023-09-16] MEDS: TOPIRAMATE 100 MG TABLET PO SCH ×2 (08:48→13:10)
[2023-09-16] MEDS: CloZAPine 100 MG TABLET PO SCH ×2 (08:48→13:10)
[2023-09-16 10:45] VITALS: BP 108/79; PULSE 92; RESP 18; TEMP 97.9
[2023-09-16 11:21] LABS: GLUCOMETER DEV NAME(LOC) 3E.C; GLUCOSE,POINT OF CARE 232 MG/DL (70-110)
[2023-09-16] MEDS: MAG HYDROX/ALUMINUM HYD/SIMETH ES 30 ML SUSPENSION UDCUP PO PRN (11:33)
== END 2023-09-16 14:45 | DRG 885 ==
LOC: 3EC 05-09 00:15 → 3EI 07-14 18:15
PROVIDERS: ADMIT Psychiatry & Neurology Psychiatry; ATTEND Psychiatry & Neurology Psychiatry
DX: F20.0 Paranoid schizophrenia (principal); U07.1 COVID-19; R45.851 Suicidal ideations; F19.20 Other psychoactive substance dependence, uncomplicated; F41.9 Anxiety disorder, unspecified; E11.9 Type 2 diabetes mellitus without complications; K59.00 Constipation, unspecified; F17.210 Nicotine dependence, cigarettes, uncomplicated; I10 Essential (primary) hypertension; J44.9 Chronic obstructive pulmonary disease, unspecified; F10.90 Alcohol use, unspecified, uncomplicated; K21.9 Gastro-esophageal reflux disease without esophagitis; Z20.1 Contact with and (suspected) exposure to tuberculosis; Z55.9 Problems related to education and literacy, unspecified; Z63.9 Problem related to primary support group, unspecified; Z59.9 Problem related to housing and economic circumstances, unspecified; Z65.3 Problems related to other legal circumstances; Z91.148 Patient's other noncompliance with medication regimen for other reason
CPT/HCPCS: 71046; 80053; 80061; 80159; 80164; 80307; 81003; 82962; 83036; 83735; 84100; 84154; 84439; 84443; 85025; 86480; 87081; G0480; G0482; J1815; Q9967; 36415-L1; 36415-TC

== ENCOUNTER 2024-05-15 19:26 | Emergency (ER) | payer MEDICARE, OTHER ==
[~2024-05-15] VITALS: Ht 185.4 cm; Wt 77.3 kg
[~2024-05-15 19:26] MED LIST: DIVA-85 PO; GABA-1201 PO; LEVE500T8 PO; LURA40TA4 PO; MELA5TAB40 PO; METF-1211 PO; MIDO5TAB29 PO; MULT-248 PO; OMEG-135 PO; TRIH2TAB3 PO
[2024-05-15 19:58] VITALS: TEMP 98.1
[2024-05-15] MEDS: SODIUM CHLORIDE 0.9% 1,000 ML IV ONE (22:04)
[2024-05-15] MEDS: ONDANSETRON HCL 4 MG/2 ML VIAL IVP ONE (22:04)
[2024-05-15 22:58] VITALS: BP 112/72; PULSE 96; RESP 16
== END 2024-05-15 23:48 ==
LOC: EMS 19:27
DX: S00.83XA Contusion of other part of head, initial encounter (principal); E11.9 Type 2 diabetes mellitus without complications; F20.9 Schizophrenia, unspecified; F17.210 Nicotine dependence, cigarettes, uncomplicated; Y04.2XXA Assault by strike against or bumped into by another person, initial encounter; Y93.89 Activity, other specified; Y92.238 Other place in hospital as the place of occurrence of the external cause; Y99.8 Other external cause status
CPT/HCPCS: 99283; Z7502

== ENCOUNTER 2024-05-17 20:04 | Emergency (ER) | payer MEDICARE, OTHER ==
[~2024-05-17] VITALS: Ht 185.4 cm; Wt 77.0 kg
[2024-05-17 20:13] VITALS: BP 131/80; PULSE 97; RESP 18; TEMP 97.8
[2024-05-17] MEDS: SODIUM CHLORIDE 0.9% 1,000 ML IV ONE (22:47)
[2024-05-17] MEDS: ONDANSETRON HCL 4 MG/2 ML VIAL IVP ONE (22:47)
== END 2024-05-18 00:02 ==
LOC: EMS 20:04
DX: R11.2 Nausea with vomiting, unspecified (principal); E11.9 Type 2 diabetes mellitus without complications; F20.9 Schizophrenia, unspecified; F17.210 Nicotine dependence, cigarettes, uncomplicated
CPT/HCPCS: 99283; J2405